=== PATIENT | male | born 1940 | race Caucasian/White ===

== ENCOUNTER → 2019-12-09 08:28 | Outpatient (CLI) | payer MEDICARE, OTHER, SELFPAY ==
[2019-12-09 12:59] LABS: Vitamin B12 393 pg/mL (211-911)
[2019-12-09 13:11] LABS: AST(SGOT) 16 U/L (15-37); Alanine Aminotransfer ALT/SGPT 17 U/L (16-61); Albumin, Serum 3.7 g/dL (3.2-5.0); Alkaline Phosphatase 99 U/L (45-117); Anion Gap 3 (5-15); BUN 24 mg/dL (7-18); BUN/Creat Ratio 20.7 RATIO (10-20); Chloride 107 mmol/L (98-107); Creatinine, Serum 1.16 mg/dL (0.70-1.30); EST Glomerular Filtration Rate 64 mL/min (>60); Est Glom Filt Rate - Afr Amer 78 mL/min (>60); Globulin 3.6 g/dL (2.2-4.2); Glucose 100 mg/dL (74-106); Potassium 4.4 mmol/L (3.5-5.1); Protein, Total 7.3 g/dL (6.4-8.2); Sodium Level 140 mmol/L (136-145); Thyroid Stim Hormone (TSH) 6.65 uIU/mL (0.358-3.74)
[2019-12-12 12:04] LABS: T4 Free Direct 0.83 ng/dL (0.76-1.46)
[2019-12-14 05:32] LABS: Thyroglobulin Antibody 7.7 IU/mL (0.0-0.9); Thyroid Peroxidase AB 441 IU/mL (0-34)
== END ==
PROVIDERS: PCP Family Medicine; Visit Provider Family Medicine
DX: R41.3 Other amnesia (principal); R79.89 Other specified abnormal findings of blood chemistry
CPT/HCPCS: 36415; 80053; 82607; 84439; 84443; 86376; 86800

== ENCOUNTER 2020-09-03 08:09 | Outpatient (RCR) | payer MEDICARE, OTHER, SELFPAY | END 2020-09-03 23:59 | LOC: IMMUN 08:09 | PROVIDERS: PCP Family Medicine; Visit Provider Family Medicine | DX: Z23 Encounter for immunization (principal) | CPT/HCPCS: 0011A; 0012A ==

== ENCOUNTER → 2021-02-07 10:11 | Outpatient (CLI) | payer MEDICARE, OTHER, SELFPAY ==
[2021-02-07 13:02] LABS: T4 Free Direct 0.78 ng/dL (0.76-1.46); Thyroid Stim Hormone (TSH) 5.42 uIU/mL (0.358-3.74)
[2021-02-17 07:57] LABS: Thyroglobulin RIA 6.5 ng/mL (.); Thyroid Peroxidase AB 288 IU/mL (0-34)
== END ==
PROVIDERS: PCP Family Medicine; Visit Provider Family Medicine
DX: E06.3 Autoimmune thyroiditis (principal); I10 Essential (primary) hypertension
CPT/HCPCS: 36415; 84432; 84439; 84443; 86376; 86800

== ENCOUNTER 2021-10-01 08:10 | Outpatient (CLI) | payer MEDICARE, OTHER, SELFPAY ==
[2021-10-01 10:11] LABS: Absolute Lymphocyte Count 1.39 X10^3/uL (0.83-4.51); Absolute Neutrophil Count 3.9 X10^3/uL (2.0-7.7); Basophil# 0.05 X10^3/uL; Basophil% 0.8 % (0-1); Eosinophil# 0.32 X10^3/uL; Hematocrit 44.9 % (40-54); Hemoglobin 14.4 g/dL (13.0-16.5); Lymphocyte # 1.39 X10^3/ul (0.83-4.51); Lymphocyte % 21.9 % (19-41); Mean Corp Hgb Conc 32.1 g/dL (32-36); Mean Corpuscular Hgb 29.7 pg (27.0-32.0); Mean Corpuscular Volume 92.6 fL (80-94); Mean Platelet Vol. 10.7 fl (6.2-12.0); Monocyte% 9.4 % (0-10); NRBC Flagged by Analyzer 0 % (0-5); Neutrophil # 3.93 X10^3/uL (2.7-7.7); Platelet Count 197 K/mm3 (150-450); RBC Distribution Width CV 13.2 % (11.6-14.6); RBC Distribution Width SD 44.7 fl (35.1-43.9); Red Blood Count 4.85 M/mm3 (4.6-6.2); White Blood Count 6.4 K/mm3 (4.4-11.0)
[2021-10-01 10:39] LABS: AST(SGOT) 17 U/L (15-37); Alanine Aminotransfer ALT/SGPT 17 U/L (16-61); Albumin, Serum 3.9 g/dL (3.2-5.0); Alkaline Phosphatase 100 U/L (45-117); Anion Gap 3 (5-15); BUN 23 mg/dL (7-18); BUN/Creat Ratio 20.5 RATIO (10-20); Calcium,Total 9.1 mg/dL (8.5-10.1); Chloride 105 mmol/L (98-107); Cholesterol 232 mg/dL (200); Creatinine, Serum 1.12 mg/dL (0.70-1.30); EST Glomerular Filtration Rate 67 mL/min (>60); Est Glom Filt Rate - Afr Amer 81 mL/min (>60); Globulin 3.9 g/dL (2.2-4.2); Glucose 101 mg/dL (74-106); High Density Lipoprotein 32 mg/dL; Potassium 4.6 mmol/L (3.5-5.1); Protein, Total 7.8 g/dL (6.4-8.2); Sodium Level 138 mmol/L (136-145); Triglycerides 141 mg/dL; Very Low Density Lipoprotein 28 mg/dL (5-40)
[2021-10-15 16:24] LABS: Anti-Thyroglobulin AB 8.3 IU/mL (0.0-0.9); Thyroglobulin RIA 6.2 ng/mL (.); Thyroid Peroxidase AB 337 IU/mL (0-34)
== END 2021-10-01 23:59 | disposition home or self-care (01) ==
LOC: MFPLAB 08:13
PROVIDERS: PCP Family Medicine; Referring Provider Family Medicine; Visit Provider Family Medicine
DX: E78.00 Pure hypercholesterolemia, unspecified (principal); E06.3 Autoimmune thyroiditis
CPT/HCPCS: 36415; 80053; 80061; 84432; 85025; 86376; 86800

== ENCOUNTER 2021-10-08 08:18 | Outpatient (CLI) | payer MEDICARE, OTHER, SELFPAY ==
--- NOTE | 2021-10-08 08:23 | RAD_ITS ---
STUDY: X-RAY - LEFT WRIST REASON FOR EXAM: Male, 80 years old. Wrist pain. TECHNIQUE: 3 view(s) of the wrist were obtained. COMPARISON: None. FINDINGS: Osteopenia. Mild arthrosis of the radiocarpal articulation. Mild arthrosis of the radial ulnar articulation. Moderate arthrosis of the radiocarpal row with marked cystic change in the distal scaphoid. Mild arthrosis of the CMC joints, most marked in the first CMC joint. Multiple small ossific fragments projected on the palmar surface of the wrist below the first CMC joint, most likely representing small intra-articular osteochondral bodies. RAD/Wrist min 3 Views IMPRESSION: Osteopenia with osteoarthritic changes as described. Probable osteochondral bodies within the first CMC joint. No acute abnormality, chondrocalcinosis, erosive changes or periostitis. Electronically Signed: Shaq Buenrostro MD at 10:42 EDT ,
--- NOTE | 2021-10-08 08:23 | RAD_ITS ---
STUDY: X-RAY - RIGHT WRIST REASON FOR EXAM: Male, 80 years old. Wrist pain. TECHNIQUE: 3 view(s) of the wrist were obtained. COMPARISON: None. FINDINGS: Osteopenia. Mild arthrosis of the radiocarpal articulation. Mild arthrosis of the radioulnar articulation. Moderate arthrosis of the radiocarpal row with minimal cystic changes in the scaphoid and lunate. Mild arthrosis of the first CMC joint. The soft tissue structures are unremarkable. RAD/Wrist min 3 Views IMPRESSION: Osteopenia with osteoarthritic changes as described. Cystic change in the scaphoid and lunate. No acute abnormality, chondrocalcinosis, erosive changes or periostitis. Electronically Signed: Shaq Buenrostro MD at 10:44 EDT ,
== END 2021-10-08 23:59 | disposition home or self-care (01) ==
LOC: MTRAD 08:21
PROVIDERS: PCP Family Medicine; Referring Provider Family Medicine; Visit Provider Family Medicine
DX: M25.539 Pain in unspecified wrist (principal)
CPT/HCPCS: 73110

== ENCOUNTER → 2021-12-25 | Outpatient (CLI) | payer MEDICARE, OTHER, SELFPAY ==
[2021-12-25 10:10] LABS: Absolute Lymphocyte Count 1.31 X10^3/uL (0.83-4.51); Absolute Neutrophil Count 3.6 X10^3/uL (2.0-7.7); Basophil# 0.03 X10^3/uL; Basophil% 0.5 % (0-1); Eosinophil# 0.29 X10^3/uL; Eosinophils% 4.9 % (0-5); Hematocrit 40.2 % (40-54); Hemoglobin 13.2 g/dL (13.0-16.5); Lymphocyte # 1.31 X10^3/ul (0.83-4.51); Lymphocyte % 22.3 % (19-41); Mean Corp Hgb Conc 32.8 g/dL (32-36); Mean Corpuscular Hgb 30.1 pg (27.0-32.0); Mean Corpuscular Volume 91.8 fL (80-94); Mean Platelet Vol. 10.8 fl (6.2-12.0); Monocyte# 0.59 X10^3/uL; Monocyte% 10.1 % (0-10); NRBC Flagged by Analyzer 0 % (0-5); Neutrophil # 3.62 X10^3/uL (2.7-7.7); Neutrophil % 61.7 % (47-70); Platelet Count 176 K/mm3 (150-450); RBC Distribution Width CV 12.7 % (11.6-14.6); Red Blood Count 4.38 M/mm3 (4.6-6.2); White Blood Count 5.9 K/mm3 (4.4-11.0)
[2021-12-25 10:59] LABS: ALB/GLOB Ratio 1.2 RATIO (0.9-2.4); AST(SGOT) 16 U/L (15-37); Alanine Aminotransfer ALT/SGPT 16 U/L (16-61); Albumin, Serum 3.8 g/dL (3.2-5.0); Alkaline Phosphatase 90 U/L (45-117); Anion Gap 5 (5-15); BUN 35 mg/dL (7-18); BUN/Creat Ratio 32.1 RATIO (10-20); Calcium,Total 8.8 mg/dL (8.5-10.1); Chloride 108 mmol/L (98-107); Cholesterol 100 mg/dL (200); Creatinine, Serum 1.09 mg/dL (0.70-1.30); EST Glomerular Filtration Rate 69 mL/min (>60); Est Glom Filt Rate - Afr Amer 83 mL/min (>60); Globulin 3.2 g/dL (2.2-4.2); Glucose 93 mg/dL (74-106); High Density Lipoprotein 37 mg/dL; Potassium 4.2 mmol/L (3.5-5.1); Sodium Level 139 mmol/L (136-145); T4 Free Direct 0.85 ng/dL (0.76-1.46); Thyroid Stim Hormone (TSH) 3.98 uIU/mL (0.358-3.74); Triglycerides 58 mg/dL; Very Low Density Lipoprotein 12 mg/dL (5-40)
== END | disposition home or self-care (01) ==
LOC: MFPLAB 08:40
PROVIDERS: PCP Family Medicine; Referring Provider Family Medicine; Visit Provider Family Medicine
DX: E06.3 Autoimmune thyroiditis (principal); E78.00 Pure hypercholesterolemia, unspecified
CPT/HCPCS: 36415; 80053; 80061; 84439; 84443; 85025

== ENCOUNTER → 2022-01-24 | Outpatient (CLI) | payer MEDICARE, OTHER, SELFPAY ==
--- NOTE | 2022-01-24 08:50 | ECHOD_ITS ---
Version 2 Reason For Study: SOB Procedure This was a 2D Doppler, Color Flow transthoracic echocardiogram. Exam performed in department. Left Ventricle Normal LV size. Left ventricular systolic function is normal. The estimated ejection fraction is 55 %. Stage 1 diastolic dysfunction. No regional wall motion abnormalities noted. Right Ventricle Normal RV size. Normal systolic function. Atria Normal left atrium. Normal right atrium. Tricuspid Valve Normal tricuspid valve. Mild (1+) tricuspid valve insufficiency. Pulmonary artery systolic pressure is 32 mmHg. Aortic Valve Trisinus/trileaflet aortic valve. Mild focal aortic valve thickening. Mild (1+) eccentric aortic valve insufficiency. Pulmonic Valve Normal pulmonic valve. Mild (1+) pulmonic valve insufficiency. Great Vessels Normal aortic root. The pulmonary artery is normal size. Normal inferior vena cava. Pericardium/Pleural No pericardial effusion. MMode/2D Measurements & Calculations LVIDd: 5.2 cm IVSd: 0.85 cm Ao root diam: 3.5 cm LVIDs: 2.9 cm LVPWd: 0.95 cm LA dimension: 3.4 cm RVDd: 4.2 cm FS: 44.0 % LAV(MOD-bp): 56.3 ml LA A4 area: 18.7 cm2 RA A4 area: 21.8 cm2 LAV(MOD-bp) Indexed: 31.1 ml/m2 LAV(MOD-sp2): 66.3 ml LAV(MOD-sp4): 48.7 ml Time Measurements MV dec time: 0.19 sec Doppler Measurements & Calculations MV E max bobby: 61.7 cm/sec MV V2 max: 60.6 cm/sec MV P1/2t max bobby: 46.9 cm/sec MV A max bobby: 79.1 cm/sec MV max P.5 mmHg MV P1/2t: 51.3 msec MV E/A: 0.78 MV V2 mean: 27.3 cm/sec MV mean P.37 mmHg MV dec slope: 267.3 cm/sec2 MV V2 VTI: 28.8 cm MVA(P1/2t): 4.3 cm2 Ao V2 max: 130.5 cm/sec AI max bobby: 418.0 cm/sec LV V1 max: 86.2 cm/sec Ao max P.8 mmHg AI max P.9 mmHg LV V1 max P.0 mmHg Ao V2 mean: 83.1 cm/sec Ao mean P.3 mmHg AI dec slope: 148.9 cm/sec2 Ao V2 VTI: 33.2 cm AI P1/2t: 822.1 msec MR max bobby: 555.5 cm/sec PA V2 max: 82.1 cm/sec MR max P.4 mmHg PI dec slope: 84.8 cm/sec2 TR max bobby: 207.0 cm/sec TR max P.1 mmHg ECHO/Echo Complete Interpretation Summary Normal LV size. Left ventricular systolic function is normal. The estimated ejection fraction is 55 %. Stage 1 diastolic dysfunction. Mild (1+) eccentric aortic valve insufficiency. Pulmonary artery systolic pressure is 32 mmHg. Ordering Physician: Kain Lopez Referring Physician: Kain Lopez Performed By: Jairo Reed RCS
== END | disposition home or self-care (01) ==
LOC: CVS 08:49
PROVIDERS: PCP Family Medicine; Referring Provider Family Medicine; Visit Provider Family Medicine
DX: R06.02 Shortness of breath (principal)
CPT/HCPCS: 93306

== ENCOUNTER → 2022-04-03 | Outpatient (CLI) | payer MEDICARE, OTHER, SELFPAY | END | disposition home or self-care (01) | PROVIDERS: PCP Family Medicine; Visit Provider Family Medicine | DX: Z20.822 Contact with and (suspected) exposure to COVID-19 (principal) | CPT/HCPCS: 87635; U0003; U0005 ==

== ENCOUNTER → 2022-06-24 | Outpatient (CLI) | payer MEDICARE, OTHER, SELFPAY ==
[2022-06-24 10:13] LABS: Absolute Neutrophil Count 4.3 X10^3/uL (2.0-7.7); Basophil# 0.06 X10^3/uL; Basophil% 0.9 % (0-1); Eosinophil# 0.48 X10^3/uL; Eosinophils% 6.9 % (0-5); Hematocrit 41.6 % (40-54); Hemoglobin 13.8 g/dL (13.0-16.5); Lymphocyte % 20.2 % (19-41); Mean Corp Hgb Conc 33.2 g/dL (32-36); Mean Corpuscular Hgb 31.1 pg (27.0-32.0); Mean Corpuscular Volume 93.7 fL (80-94); Mean Platelet Vol. 10.7 fl (6.2-12.0); Monocyte# 0.66 X10^3/uL; Monocyte% 9.5 % (0-10); NRBC Flagged by Analyzer 0 % (0-5); Neutrophil # 4.27 X10^3/uL (2.7-7.7); Neutrophil % 61.6 % (47-70); Platelet Count 178 K/mm3 (150-450); RBC Distribution Width CV 12.7 % (11.6-14.6); RBC Distribution Width SD 43.9 fl (35.1-43.9); Red Blood Count 4.44 M/mm3 (4.6-6.2); White Blood Count 6.9 K/mm3 (4.4-11.0)
[2022-06-24 11:07] LABS: ALB/GLOB Ratio 1.1 RATIO (0.9-2.4); AST(SGOT) 19 U/L (15-37); Alanine Aminotransfer ALT/SGPT 22 U/L (16-61); Albumin, Serum 3.6 g/dL (3.2-5.0); Alkaline Phosphatase 89 U/L (45-117); Anion Gap 6 (5-15); BUN 25 mg/dL (7-18); Chloride 103 mmol/L (98-107); Cholesterol 116 mg/dL (200); Creatinine, Serum 1.04 mg/dL (0.70-1.30); EST Glomerular Filtration Rate 72 mL/min (>60); Est Glom Filt Rate - Afr Amer 88 mL/min (>60); Globulin 3.3 g/dL (2.2-4.2); Glucose 80 mg/dL (74-106); High Density Lipoprotein 34 mg/dL; Potassium 4.5 mmol/L (3.5-5.1); Protein, Total 6.9 g/dL (6.4-8.2); Sodium Level 139 mmol/L (136-145); T4 Free Direct 0.86 ng/dL (0.76-1.46); Thyroid Stim Hormone (TSH) 8.36 uIU/mL (0.358-3.74); Triglycerides 101 mg/dL; Very Low Density Lipoprotein 20 mg/dL (5-40)
== END | disposition home or self-care (01) ==
LOC: MFPLAB 08:55
PROVIDERS: PCP Family Medicine; Referring Provider Family Medicine; Visit Provider Family Medicine
DX: E06.3 Autoimmune thyroiditis (principal); E78.00 Pure hypercholesterolemia, unspecified
CPT/HCPCS: 36415; 80053; 80061; 84439; 84443; 85025

== ENCOUNTER → 2023-01-20 | Outpatient (CLI) | payer MEDICARE, OTHER, SELFPAY ==
[2023-01-20 18:14] LABS: Absolute Lymphocyte Count 1.45 X10^3/uL (0.83-4.51); Absolute Neutrophil Count 4.7 X10^3/uL (2.0-7.7); Basophil# 0.05 X10^3/uL; Basophil% 0.7 % (0-1); Eosinophil# 0.48 X10^3/uL; Eosinophils% 6.6 % (0-5); Hematocrit 40.4 % (40-54); Hemoglobin 13.2 g/dL (13.0-16.5); Lymphocyte # 1.45 X10^3/ul (0.83-4.51); Lymphocyte % 19.9 % (19-41); Mean Corp Hgb Conc 32.7 g/dL (32-36); Mean Corpuscular Hgb 30.6 pg (27.0-32.0); Mean Corpuscular Volume 93.7 fL (80-94); Mean Platelet Vol. 10.9 fl (6.2-12.0); Monocyte% 8.2 % (0-10); NRBC Flagged by Analyzer 0 % (0-5); Neutrophil # 4.68 X10^3/uL (2.7-7.7); Neutrophil % 64.3 % (47-70); Platelet Count 170 K/mm3 (150-450); RBC Distribution Width CV 12.7 % (11.6-14.6); RBC Distribution Width SD 43.8 fl (35.1-43.9); Red Blood Count 4.31 M/mm3 (4.6-6.2); White Blood Count 7.3 K/mm3 (4.4-11.0)
[2023-01-20 19:15] LABS: ALB/GLOB Ratio 1.1 RATIO (0.9-2.4); AST(SGOT) 22 U/L (15-37); Alanine Aminotransfer ALT/SGPT 17 U/L (16-61); Albumin, Serum 3.6 g/dL (3.2-5.0); Alkaline Phosphatase 85 U/L (45-117); Anion Gap 3 (5-15); BUN 29 mg/dL (7-18); BUN/Creat Ratio 20.3 RATIO (10-20); Chloride 110 mmol/L (98-107); Cholesterol 111 mg/dL (200); Creatinine, Serum 1.43 mg/dL (0.70-1.30); EST Glomerular Filtration Rate 50 mL/min (>60); Est Glom Filt Rate - Afr Amer 61 mL/min (>60); Globulin 3.4 g/dL (2.2-4.2); Glucose 94 mg/dL (74-106); High Density Lipoprotein 33 mg/dL; Potassium 4.2 mmol/L (3.5-5.1); Sodium Level 141 mmol/L (136-145); T4 Free Direct 0.69 ng/dL (0.76-1.46); Thyroid Stim Hormone (TSH) 4.41 uIU/mL (0.358-3.74); Triglycerides 133 mg/dL; Very Low Density Lipoprotein 27 mg/dL (5-40)
== END | disposition home or self-care (01) ==
LOC: MFPLAB 16:57
PROVIDERS: PCP Family Medicine; Visit Provider Family Medicine
DX: E78.00 Pure hypercholesterolemia, unspecified (principal); E06.3 Autoimmune thyroiditis
CPT/HCPCS: 36415; 80053; 80061; 84439; 84443; 85025

== ENCOUNTER → 2023-04-03 | Outpatient (CLI) | payer MEDICARE, OTHER, SELFPAY ==
[2023-04-03 12:59] LABS: T4 Free Direct 0.99 ng/dL (0.76-1.46); Thyroid Stim Hormone (TSH) 1.65 uIU/mL (0.358-3.74)
== END | disposition home or self-care (01) ==
LOC: MTLAB 11:05
PROVIDERS: PCP Family Medicine; Referring Provider Family Medicine; Visit Provider Family Medicine
DX: E03.8 Other specified hypothyroidism (principal)
CPT/HCPCS: 36415; 84439; 84443

== ENCOUNTER → 2023-06-24 | Outpatient (CLI) | payer MEDICARE, OTHER, SELFPAY ==
[2023-06-24 17:59] LABS: Cholesterol 130 mg/dL (200); High Density Lipoprotein 40 mg/dL; Thyroid Stim Hormone (TSH) 2.13 uIU/mL (0.358-3.74); Triglycerides 159 mg/dL; Very Low Density Lipoprotein 32 mg/dL (5-40)
== END | disposition home or self-care (01) ==
LOC: MFPLAB 14:58
PROVIDERS: PCP Family Medicine; Visit Provider Nurse Practitioner Family
DX: E03.8 Other specified hypothyroidism (principal); E78.00 Pure hypercholesterolemia, unspecified
CPT/HCPCS: 36415; 80061; 84439; 84443

== ENCOUNTER → 2024-04-07 | Outpatient (CLI) | payer OTHER, SELFPAY ==
[2024-04-07 12:18] LABS: Absolute Lymphocyte Count 1.35 X10^3/uL (0.83-4.51); Absolute Neutrophil Count 3.6 X10^3/uL (2.0-7.7); Basophil# 0.04 X10^3/uL; Basophil% 0.7 % (0-1); Eosinophil# 0.33 X10^3/uL; Eosinophils% 5.6 % (0-5); Hematocrit 41.9 % (40-54); Hemoglobin 13.3 g/dL (13.0-16.5); Lymphocyte # 1.35 X10^3/ul (0.83-4.51); Lymphocyte % 22.8 % (19-41); Mean Corp Hgb Conc 31.7 g/dL (32-36); Mean Corpuscular Hgb 29.8 pg (27.0-32.0); Mean Corpuscular Volume 93.7 fL (80-94); Mean Platelet Vol. 11.3 fl (6.2-12.0); Monocyte# 0.56 X10^3/uL; Monocyte% 9.5 % (0-10); NRBC Flagged by Analyzer 0 % (0-5); Neutrophil # 3.59 X10^3/uL (2.7-7.7); Neutrophil % 60.7 % (47-70); Platelet Count 167 K/mm3 (150-450); RBC Distribution Width CV 12.9 % (11.6-14.6); RBC Distribution Width SD 44.2 fl (35.1-43.9); Red Blood Count 4.47 M/mm3 (4.6-6.2); White Blood Count 5.9 K/mm3 (4.4-11.0)
[2024-04-07 13:15] LABS: ALB/GLOB Ratio 1.1 RATIO (0.9-2.4); AST(SGOT) 18 U/L (15-37); Alanine Aminotransfer ALT/SGPT 13 U/L (16-61); Albumin, Serum 3.7 g/dL (3.2-5.0); Alkaline Phosphatase 88 U/L (45-117); Anion Gap 4 (5-15); BUN 25 mg/dL (7-18); BUN/Creat Ratio 22.5 RATIO (10-20); Calcium,Total 9.2 mg/dL (8.5-10.1); Chloride 104 mmol/L (98-107); Cholesterol 122 mg/dL (200); Creatinine, Serum 1.11 mg/dL (0.70-1.30); EST Glomerular Filtration Rate 67 mL/min (>60); Est Glom Filt Rate - Afr Amer 81 mL/min (>60); Globulin 3.3 g/dL (2.2-4.2); Glucose 103 mg/dL (74-106); High Density Lipoprotein 40 mg/dL; Potassium 4.2 mmol/L (3.5-5.1); Sodium Level 136 mmol/L (136-145); T4 Free Direct 0.97 ng/dL (0.76-1.46); Triglycerides 83 mg/dL; Very Low Density Lipoprotein 17 mg/dL (5-40)
== END | disposition home or self-care (01) ==
LOC: MFPLAB 09:46
PROVIDERS: PCP Family Medicine; Referring Provider Family Medicine; Visit Provider Family Medicine
DX: E78.00 Pure hypercholesterolemia, unspecified (principal); E03.8 Other specified hypothyroidism
CPT/HCPCS: 36415; 80053; 80061; 84439; 84443; 85025

== ENCOUNTER → 2024-10-11 | Outpatient (CLI) | payer MEDICARE, OTHER, SELFPAY ==
[2024-10-11 13:27] LABS: ALB/GLOB Ratio 1.5 RATIO (0.9-2.4); AST(SGOT) 24 U/L (<=37); Alanine Aminotransfer ALT/SGPT 11 U/L (<=46); Albumin, Serum 4.3 g/dL (3.4-4.8); Alkaline Phosphatase 91 U/L (40-129); Anion Gap 11 (5-15); BUN 22 mg/dL (4-19); BUN/Creat Ratio 21.8 RATIO (10-20); Calcium,Total 9.3 mg/dL (7.6-11.0); Carbon Dioxide 25.3 mmol/L (21.0-32.0); Chloride 103 mmol/L (98-108); Cholesterol 118 mg/dL (<=200); Creatinine, Serum 1.01 mg/dL (0.70-1.20); EST Glomerular Filtration Rate 73 (>60); Globulin 2.9 g/dL (2.2-4.2); Glucose 97 mg/dL (70-99); High Density Lipoprotein 35 mg/dL; Low Density Lipoprotein Calc. 60 mg/dL; Potassium 4.4 mmol/L (3.3-5.1); Protein, Total 7.1 g/dL (5.9-8.4); Sodium Level 139 mmol/L (133-145); Triglycerides 114 mg/dL; Very Low Density Lipoprotein 23 mg/dL (5-40); cholesterol:hdl ratio screen 3.33
== END | disposition home or self-care (01) ==
LOC: MFPLAB 09:49
PROVIDERS: PCP Family Medicine; Referring Provider Family Medicine; Visit Provider Family Medicine
DX: E03.8 Other specified hypothyroidism (principal); E78.00 Pure hypercholesterolemia, unspecified
CPT/HCPCS: 36415; 80053; 80061; 84439; 84443

== ENCOUNTER → 2025-01-13 | Outpatient (CLI) | payer MEDICARE, OTHER, SELFPAY ==
--- OUTSIDE RECORDS SUMMARY | 2025-01-13 07:37 | XMS RPT_ITS | CCD ---
Author Organization [facility] Care Team Providers Care Customs Entry Clerk Name Role Phone Dr. Dmitriy Hardy Primary Care Provider Dr. Jose E Gary Attending Provider [phone] DMITRIY HARDY MD Primary Care Physician [phone] Dr. Dmitriy Hardy MD Primary Care Provider Dr. Dmitriy Hardy MD Referring Provider [phone] Nathaniel DEL VALLE-Dmitriy Gerardo Attending Provider [phone] Dmitriy Hardy MD Attending Provider [phone] Dmitriy Hardy Primary Care Unavailable Dmitriy Hardy Attending Unavailable Dmitriy Hardy Referring Unavailable Dmitriy Hardy Attending Unavailable Dmitriy Hardy Referring Unavailable Dmitriy Hardy Primary Care Unavailable Dmitriy Hardy Primary Care Unavailable Zina Petit Attending Unavailable Zina Petit Referring Unavailable Dmitriy Hardy Referring Unavailable Dmitriy Armstrong NP Attending Unavailable Dmitriy Hardy Primary Care Unavailable ZINA PETIT MD Attending Unavailable DMITRIY HARDY MD Primary Care Unavailable Medications Current Medications Medication Drug Class(es) Dates Sig (Normalized) Sig (Original) azithromycin 250 mg oral tablet (1 source) Macrolide Antimicrobial Start: 07-03-2024 Azithromycin (Zithromax Z-Rai) 250 mg tablet Active 0 PO .COMPLEX July 03, 2024 1:00am For 250 mg dose pack: take 500 mg today (day 1), then 250 mg for 4 days (days 2-5) PO Problems Active Problems Problem Classification Problem Date Documented Da te Episodic/Chronic Disorders of lipid metabolism (1 source) Pure hypercholesterole moreno, unspecified; Translations: [Pure hypercholesterole moreno, unspecified] Onset: 06-13-2024 Chronic Thyroid disorders (1 source) Other specified hypothyroidism; Translations: [Other specified hypothyroidism] Onset: 10-17-2024 Chronic Past or Other Problems Problem Classification Problem Date Documented Da te Episodic/Chronic Other upper respiratory infections (3 sources) Upper respiratory infection; Translations: [Acute upper respiratory infection, unspecified] Onset: 07-03-2024 07-03-2024 Episodic Results Test Name Value Interpretation Reference Range Facility CT KNEE W/O CONTRAST RIGHTon 12-30-2024 CT KNEE W/O CONTRAST RIGHT ORIGINAL EXAMINATION: CT OF THE RIGHT KNEE WITHOUT CONTRAST 12/29/2024 3:45 pm TECHNIQUE: CT of the right knee was performed without the administration of intravenous contrast. Multiplanar reformatted images are provided for review. Automated exposure control, iterative reconstruction, and/or weight based adjustment of the mA/kV was utilized to reduce the radiation dose to as low as reasonably achievable. COMPARISON: None. HISTORY ORDERING SYSTEM PROVIDED HISTORY: Reason for Exam: Unilateral primary osteoarthritis, right knee FINDINGS: Chondrocalcinosis, worse in medial compartment. Moderate medial compartment joint space narrowing with subchondral sclerosis in tibial plateau Small tricompartmental marginal osteophytes. No fracture or malalignment. Trace joint effusion. IMPRESSION: Images were acquired for preoperative planning. Medial compartment osteoarthritis. chondrocalcinosis. Interpreted by: Alfred Santoyo Preliminary Report By: Alfred Santoyo Electronically signed By Alfred Santoyo Dictated Date: 12/30/2024 7:53:46 AM Prelim Date: 12/30/2024 7:55:56 AM Sign Date: 12/30/2024 7:55:56 AM Ordering Provider: ZINA PETIT Interpreted by: Alfred Santoyo Preliminary Report By: Alfred Santoyo Electronically signed By Alfred Santoyo Dictated Date: 12/30/2024 7:53:46 AM Prelim Date: 12/30/2024 7:55:56 AM Sign Date: 12/30/2024 7:55:56 AM Ordering Provider: ZINA PETIT [facility] XR CHEST 2 VIEWSon XR CHEST 2 VIEWS ORIGINAL EXAMINATION: TWO XRAY VIEWS OF THE CHEST 12/29/2024 3:45 pm COMPARISON: None. HISTORY: ORDERING SYSTEM PROVIDED HISTORY: Reason for Exam: PRE OP FINDINGS: The heart size and mediastinal contours are normal. The lungs are hyperexpanded. There is no acute lung infiltrate or edema. No pneumothorax or pleural fluid is present. There is mild thoracic spondylosis without fracture or subluxation. IMPRESSION: 1. Chronic obstructive pulmonary disease. 2. No acute abnormality. Interpreted by: Pop Avina MD Preliminary Report By: Pop Avina MD Electronically signed By Pop Avina MD Dictated Date: 12/30/2024 3:37:25 AM Prelim Date: 12/30/2024 3:38:14 AM Sign Date: 12/30/2024 3:38:14 AM Ordering Provider: ZINA PETIT Interpreted by: Pop Avina MD Preliminary Report By: Pop Avina MD Electronically signed By Pop Avina MD Dictated Date: 12/30/2024 3:37:25 AM Prelim Date: 12/30/2024 3:38:14 AM Sign Date: 12/30/2024 3:38:14 AM Ordering Provider: ZINA PETIT [facility] Anion gap in Serum or Plasma Ordered By: Dmitriy Hardy on 10-11-2024 Anion gap [Moles/Vol] 11 mmol/L 5-15 [facility] BUN/creatinine ratioOrdered By: Dmitriy Hardy on 10-11-2024 Urea nitrogen/Creatinine [Mass ratio] 21.8 mg/mg High 10-20 [facility] Bilirubin, totalOrdered By: Dmitriy Hardy on 10-11-2024 Bilirubin [Mass/Vol] 0.60 mg/dL 0.00-1.30 [facility] Calculated very low density lipoprotein (VLDL) cholesterol measurementOrdered By: Dmitriy Hardy on 10-11-2024 VLDL Cholesterol 23 mg/dL 5-40 [facility] Carbon dioxide, total [Moles /volume] in Central venous bloodOrdered By: Dmitriy Hardy on 10-11-2024 CO2 [Moles/Vol] 25.3 mmol/L 21.0-32.0 [facility] Chloride assayOrdered By: Manisha Hardy on 10-11-2024 Chloride [Moles/Vol] 103 mmol/L 98-108 [facility] Comprehensive Metabolic Prof ilon 10-11-2024 Albumin [Mass/Vol] 4.3 g/dL Normal 3.4-4.8 [facility] Comment on above: Order Comment: Order Date: 10/11/24 Order Info: [id number] - CMP Order Info: - LIPID Order Info: 3 - TSH Order Info: [id number] - T4F Performed By: #### L 506.0400, L501.9520, L500.4050, L500.4100 #### [facility] [address] [place], [address] Albumin/Globulin [Mass ratio] 1.5 {ratio} Normal 0.9-2.4 [facility] Comment on above: Order Comment: Order Date: 10/11/24 Order Info: [id number] - CMP Order Info: - LIPID Order Info: 3 - TSH Order Info: 7 - T4F Performed By: #### L 506.0400, L501.9520, L500.4050, L500.4100 #### [facility] [address] [place], [address] ALK PHOS 91 U/L Normal 40-129 [facility] Comment on above: Order Comment: Order Date: 10/11/24 Order Info: [id number] - CMP Order Info: - LIPID Order Info: 3 - TSH Order Info: [id number] - T4F Performed By: #### L 506.0400, L501.9520, L500.4050, L500.4100 #### [facility] [address] [place], [address] ALT [Catalytic activity/Vol] 11 U/L Normal <=46 [facility] Comment on above: Order Comment: Order Date: 10/11/24 Order Info: [id number] - CMP Order Info: [id number] - LIPID Order Info: 63 - TSH Order Info: 3024-7 - T4F Performed By: #### L 506.0400, L501.9520, L500.4050, L500.4100 #### [facility] [address] [place], [address] AST [Catalytic activity/Vol] 24 U/L Normal <=37 [facility] Comment on above: Order Comment: Order Date: 10/11/24 Order Info: 86-1 - CMP Order Info: [id number] - LIPID Order Info: [id number] - TSH Order Info: 3024-7 - T4F Performed By: #### L 506.0400, L501.9520, L500.4050, L500.4100 #### [facility] [address] [place], [address] Bilirubin [Mass/Vol] 0.60 mg/dL Normal 0.00-1.30 [facility] Comment on above: Order Comment: Order Date: 10/11/24 Order Info: 785-1 - CMP Order Info: [id number] - LIPID Order Info: 3 - TSH Order Info: [id number] - T4F Performed By: #### L 506.0400, L501.9520, L500.4050, L500.4100 #### [facility] [address] [place], [address] BUN/CRE 21.8 RATIO High 10-20 [facility] Comment on above: Order Comment: Order Date: 10/11/24 Order Info: 785-1 - CMP Order Info: [id number] - LIPID Order Info: 3 - TSH Order Info: 3024-7 - T4F Performed By: #### L 506.0400, L501.9520, L500.4050, L500.4100 #### [facility] [address] [place], [address] Calcium [Mass/Vol] 9.3 mg/dL Normal 7.6-11.0 [facility] Comment on above: Order Comment: Order Date: 10/11/24 Order Info: 86-1 - CMP Order Info: [id number] - LIPID Order Info: 3 - TSH Order Info: 3024-7 - T4F Performed By: #### L 506.0400, L501.9520, L500.4050, L500.4100 #### [facility] [address] [place], [address] Chloride [Moles/Vol] 103 mmol/L Normal 98-108 [facility] Comment on above: Order Comment: Order Date: 10/11/24 Order Info: [id number] - CMP Order Info: [id number] - LIPID Order Info: [id number] - TSH Order Info: 3024-7 - T4F Performed By: #### L 506.0400, L501.9520, L500.4050, L500.4100 #### [facility] [address] [place], [address] CO2 [Moles/Vol] 25.3 mmol/L Normal 21.0-32.0 [facility] Comment on above: Order Comment: Order Date: 10/11/24 Order Info: 785-1 - CMP Order Info: [id number] - LIPID Order Info: [id number] - TSH Order Info: 3024-7 - T4F Performed By: #### L 506.0400, L501.9520, L500.4050, L500.4100 #### [facility] [address] [place], [address] Creatinine [Mass/Vol] 1.01 mg/dL Normal 0.70-1.20 [facility] Comment on above: Order Comment: Order Date: 10/11/24 Order Info: [id number] - CMP Order Info: [id number] - LIPID Order Info: [id number] - TSH Order Info: 3024-7 - T4F Performed By: #### L 506.0400, L501.9520, L500.4050, L500.4100 #### [facility] [address] [place], [address] GAP 11 Normal 5-15 [facility] Comment on above: Order Comment: Order Date: 10/11/24 Order Info: [id number] - CMP Order Info: [id number] - LIPID Order Info: 3 - TSH Order Info: 7 - T4F Performed By: #### L 506.0400, L501.9520, L500.4050, L500.4100 #### [facility] [address] [place], [address] GFR/1.73 sq M.predicted among non-blacks MDRD (S/P/Bld) [Vol rate/Area] 73 mL/min/{1.73_m2} Normal >60 [facility] Comment on above: Order Comment: Order Date: 10/11/24 Order Info: 785- - CMP Order Info: - LIPID Order Info: [id number] - TSH Order Info: 7 - T4F Result Comment: mL/m in/1.73m2 CKD-EPI Creatinine Equation (2020) Performed By: #### L 506.0400, L501.9520, L500.4050, L500.4100 #### [facility] [address] [place], [address] Globulin (S) [Mass/Vol] 2.9 g/dL Normal 2.2-4.2 [facility] Comment on above: Order Comment: Order Date: 10/11/24 Order Info: [id number] - CMP Order Info: [id number] - LIPID Order Info: 3 - TSH Order Info: 7 - T4F Performed By: #### L 506.0400, L501.9520, L500.4050, L500.4100 #### [facility] [address] [place], [address] Glucose [Mass/Vol] 97 mg/dL Normal 70-99 [facility] Comment on above: Order Comment: Order Date: 10/11/24 Order Info: 071 - CMP Order Info: [id number] - LIPID Order Info: 3 - TSH Order Info: 7 - T4F Performed By: #### L 506.0400, L501.9520, L500.4050, L500.4100 #### [facility] [address] [place], [address] Potassium [Moles/Vol] 4.4 mmol/L Normal 3.3-5.1 [facility] Comment on above: Order Comment: Order Date: 10/11/24 Order Info: [id number] - CMP Order Info: [id number] - LIPID Order Info: [id number] - TSH Order Info: 3024-7 - T4F Performed By: #### L 506.0400, L501.9520, L500.4050, L500.4100 #### [facility] [address] [place], [address] Sodium [Moles/Vol] 139 mmol/L Normal 133-145 [facility] Comment on above: Order Comment: Order Date: 10/11/24 Order Info: 785- - CMP Order Info: [id number] - LIPID Order Info: 3 - TSH Order Info: 3024-7 - T4F Performed By: #### L 506.0400, L501.9520, L500.4050, L500.4100 #### [facility] [address] [place], [address] T PROT 7.1 g/dL Normal 5.9-8.4 [facility] Comment on above: Order Comment: Order Date: 10/11/24 Order Info: 0786- - CMP Order Info: [id number] - LIPID Order Info: [id number] - TSH Order Info: 3024-7 - T4F Performed By: #### L 506.0400, L501.9520, L500.4050, L500.4100 #### [facility] [address] [place], [address] Urea nitrogen [Mass/Vol] 22 mg/dL High 4-19 [facility] Comment on above: Order Comment: Order Date: 10/11/24 Order Info: [id number] - CMP Order Info: [id number] - LIPID Order Info: 3 - TSH Order Info: 3024-01 - T4F Performed By: #### L 506.0400, L501.9520, L500.4050, L500.4100 #### [facility] [address] [place], [place], [address] GFR/1.73 sq M.predicted yimi g non-blacks MDRD (S/P/Bld) [Vol rate/Area]Ordered By: Dmitriy Hardy on 10-11-2024 Estimated GFR (MDRD) Non-Af Amer [address] [facility] Comment on above: mL/min/1.73m2 CKD-EP I Creatinine Equation (2020) LDL calc ser/plasOrdered By: Dmitriy Hardy on 10-11-2024 LDL Cholesterol, Calculated 60 mg/dL [facility] Comment on above: Ibnezciboi=919-377 m g/dL & Higher Ehfc=308 mg/dL or greater Laboratory - Chemistry and C hemistry - challengeOrdered By: Dmitriy Hardy on 10-11-2024 AST [Catalytic activity/Vol] 24 U/L <38 [facility] Lipid Profileon 10-11-2024 CHOL:HDL 3.[address] [facility] Comment on above: Order Comment: Order Date: 10/11/24 Order Info: 0786-1 - CMP Order Info: [id number] - LIPID Order Info: [id number] - TSH Order Info: 3024-01 - T4F Performed By: #### L 506.0400, L501.9520, L500.4050, L500.4100 #### [facility] [address] [place], [place], [address] Cholesterol [Mass/Vol] 118 mg/dL Normal <=200 [facility] Comment on above: Order Comment: Order Date: 10/11/24 Order Info: 0786-1 - CMP Order Info: [id number] - LIPID Order Info: [id number] - TSH Order Info: 3024-01 - T4F Result Comment: Chol esterol level, Desirable <200 mg/dL Borderline high cholesterol 200-239 mg/dL High cholesterol >=240 mg/dL Recommendations of the NCEP Adult Treatment Panel for the following risk-cutoff thresholds for the [place] population. Performed By: #### L 506.0400, L501.9520, L500.4050, L500.4100 #### [facility] [address] [place], [address] Cholesterol in HDL [Mass/Vol] 35 mg/dL Low [facility] Comment on above: Order Comment: Order Date: 10/11/24 Order Info: 785- - CMP Order Info: - LIPID Order Info: [id number] - TSH Order Info: 3024-01 T4 Result Comment: Raquel onal Cholesterol Education Program (NCEP) guidelines: <40 mg/dL: Low HDL-cholesterol (major risk factor for CHD) >= 60 mg/dL: High HDL-cholesterol (negative risk factor for CHD) HDL-cholesterol is affected by a number of factors, e.g. smoking, exercise, hormones, sex and age. Performed By: #### L 506.0400, L501.9520, L500.4050, L500.4100 #### [facility] [address] [place], [address] Cholesterol in LDL [Mass/Vol] 60 mg/dL Normal [facility] Comment on above: Order Comment: Order Date: 10/11/24 Order Info: 785-07 - CMP Order Info: - LIPID Order Info: [id number] - TSH Order Info: 3024-01 T4 Result Comment: Bord umdhct=658-765 mg/dL Higher Iwqu=662 mg/dL or greater Performed By: #### L 506.0400, L501.9520, L500.4050, L500.4100 #### [facility] [address] [place], [address] Cholesterol in VLDL [Mass/Vol] 23 mg/dL Normal 5-40 [facility] Comment on above: Order Comment: Order Date: 10/11/24 Order Info: 785-07 - CMP Order Info: - LIPID Order Info: [id number] - TSH Order Info: 3024-01 - T4F Performed By: #### L 506.0400, L501.9520, L500.4050, L500.4100 #### [facility] [address] [place], [place], [address] Triglyceride [Mass/Vol] 114 mg/dL Normal [facility] Comment on above: Order Comment: Order Date: 10/11/24 Order Info: 0786-1 - CMP Order Info: [id number] - LIPID Order Info: [id number] - TSH Order Info: 3024-01 - T4F Result Comment: The drugs N-Acetylcysteine and Metamizole may falsely depress this assay. Normal range: <150 mg/dL Borderline High: 150-199 mg/dL High: 200-499 mg/dL Very High: >500 mg/dL Performed By: #### L 506.0400, L501.9520, L500.4050, L500.4100 #### [facility] [address] [place], [place], [address] Potassium (Unsp spec) [Mass/ Vol]Ordered By: Dmitriy Hardy on 10-11-2024 Potassium [Moles/Vol] 4.4 mmol/L 3.3-5.1 [facility] Screening total cholesterol/ high density lipoprotein (HDL) cholesterol ratioOrdered By: Dmitriy Hardy on 10-11-2024 Cholesterol.total/Ch olesterol in HDL [Mass ratio] 3.33 {ratio} [facility] Serum creatinine measurement (mass/volume)Ordered By: Dmitriy Hardy on 10-11-2024 Creatinine [Mass/Vol] 1.01 mg/dL 0.70-1.20 [facility] Serum globulin measurementOr dered By: Dmitriy Hardy on 10-11-2024 Globulin (S) [Mass/Vol] 2.9 g/dL 2.2-4.2 [facility] Serum glucose measurement (m ass/volume)Ordered By: Dmitriy Hardy on 10-11-2024 Glucose [Mass/Vol] 97 mg/dL 70-99 [facility] Serum or plasma alanine dyson otransferase (ALT) measurementOrdered By: Dmitriy Hardy on 10-11-2024 ALT [Catalytic activity/Vol] 11 U/L <47 [facility] Serum or plasma albumin dulce urement (mass/volume)Ordered By: Dmitriy Hardy on 10-11-2024 Albumin [Mass/Vol] 4.3 g/dL 3.4-4.8 [facility] Serum or plasma albumin/glob ulin mass ratioOrdered By: Dmitriy Hardy on 10-11-2024 Albumin/Globulin [Mass ratio] 1.5 {ratio} 0.9-2.4 [facility] Serum or plasma alkaline piyush sphatase measurementOrdered By: Dmitriy Hardy on 10-11-2024 ALP [Catalytic activity/Vol] 91 U/L 40-129 [facility] Serum or plasma calcium dulce urement (mass/volume)Ordered By: Dmitriy Hardy on 10-11-2024 Calcium [Mass/Vol] 9.3 mg/dL 7.6-11.0 [facility] Serum or plasma cholesterol in HDL measurement (mass/volume)Ordered By: Dmitriy Hardy on 10-11-2024 Cholesterol in HDL [Mass/Vol] 35 mg/dL Low >40 [facility] Comment on above: National Cholesterol Education Program (NCEP) guidelines:<40 mg/dL: Low HDL-cholesterol (major risk factor for CHD)>= 60 mg/dL: High HDL-cholesterol (negative risk factor for CHD)HDL-cholesterol is affected by a number of factors, e.g. smoking, exercise, hormones, sex and age. Serum or plasma cholesterol measurement (mass/volume)Ordered By: Dmitriy Hardy on 10-11-2024 Cholesterol [Mass/Vol] 118 mg/dL <201 [facility] Comment on above: Cholesterol level, D esirable <200 mg/dLBorderline high cholesterol 200-239 mg/dLHigh cholesterol >=240 mg/dLRecommendations of the NCEP Adult Treatment Panel for the following risk-cutoff thresholds for the [place] population. Serum or plasma urea nitroge n measurement (mass/volume)Ordered By: Dmitriy Hardy on 10-11-2024 Urea nitrogen [Mass/Vol] 22 mg/dL High 4-19 [facility] Sodium levelOrdered By: Dmitriy Hardy on 10-11-2024 Sodium [Moles/Vol] 139 mmol/L 133-145 [facility] T4 Free Directon 10-11-2024 T4 FREE DIRECT 1.30 ng/dL Normal 0.76-1.46 [facility] Comment on above: Order Comment: Order Date: 10/11/24 Order Info: [id number] - CMP Order Info: [id number] - LIPID Order Info: 63 - TSH Order Info: 3024-01 - T4F Performed By: #### L 506.0400, L501.9520, L500.4050, L500.4100 #### [facility] [address] [place], [address] T4 freeOrdered By: Dmitriy galo on 10-11-2024 Free T4 [Mass/Vol] 1.30 ng/dL 0.76-1.46 [facility] TSH DL <= 0.005 mIU/L QnOrde red By: Dmitriy Hardy on 10-11-2024 Thyroid Stimulating Hormone (TSH) 3.070 uIU/mL 0.300-4.200 [facility] Thyroid Stim Hormone (TSH)on 10-11-2024 TSH 3.070 uIU/mL Normal 0.300-4.200 [facility] Comment on above: Order Comment: Order Date: 10/11/24 Order Info: [id number] - CMP Order Info: [id number] - LIPID Order Info: 3 - TSH Order Info: 3024-01 - T4F Performed By: #### L 506.0400, L501.9520, L500.4050, L500.4100 #### [facility] [address] [place], [address] Total proteinOrdered By: Dean Hardy on 10-11-2024 Protein [Mass/Vol] 7.1 g/dL 5.9-8.4 [facility] Triglycerides measurementOrd ered By: Dmitriy Hardy on 10-11-2024 Triglyceride [Mass/Vol] 114 mg/dL <199 [facility] Comment on above: The drugs N-Acetylcy steine and Metamizole may falsely depress this assay. Normal range: <150 mg/dLBorderline High: 150-199 mg/dLHigh: 200-499 mg/dLVery High: >500 mg/dL No Panel Informationon 07-03 POC SARS CoV-[address] [facility] Urgent Care Visit Reporton 1 09-03-2023 Urgent Care Visit Report [facility] [address], [address] [place] [address] OFFICE VISIT Date of Service: 07/03/24 MR#: [id number] Acct: [id number] Name: SP BABCOCK Rep #: [id number] : 1940 Provider: AIDAN yeh Age/Sex: 83/M Location: [facility] Status: Signed Intake Vital Signs 07/03/24 09:58 Height 5 ft 8 in Weight: 156 lb 6 oz BMI 23.8 BP 120/58 L Blood Pressure Location Lt brachial Position Sitting Respiration 16 Pulse 50 L Pulse Source NIBP Temp 98.1 F Temp Source Oral Pulse Oximetry (%) 96 Oxygen Delivery Method room air Intake Visit Reasons: HEAD CONGESTION Chief Complaint: cough, congestion Loader Technician Required: No Is patient in pain?: No Allergies No Known Allergies Allergy (Verified 07/03/24 09:59) Have you fallen in the past year?: No Nurse's Note: productive cough, congestion x 1 week. taking otc decongestant and Nyquil without relief. HPI HPI Chief Complaint: cough, congestion Details: SP BABCOCK, is a 83 M who presents to the office today for concerns regarding productive cough and congestion for the last week. He has been taking dzwa-lfw-ttbyglr medications without relief. COVID testing prior to evaluation was negative. He states his symptoms tend to be in my sinuses. He denies sick contacts. He received flu and pneumonia vaccination. He has not received COVID vaccination. ROS Const Constitutional: No body ache, chills, fatigue, fever(s), headache(s) or change in appetite Eyes Eyes: No blurry vision, change in vision, double vision, irritation, discharge, vision loss, dry eyes, bulging eyes, floaters, visual disturbances, eye pain, Light sensitivity, spots in vision, tunnel vision or other ENT ENT: No ear or mastoid pain, ear discharge, ear pressure, tinnitus, dizziness/vertigo, nosebleed/epistaxis, nasal congestion, nose pain, sinus pressure, sinus pain, nasal discharge, post nasal drip, headache(s), facial pain, dental pain, difficulty swallowing, bad breath, hoarseness, lip swelling, mouth lesions, mouth pain, neck pain, sore throat, tongue swelling or throat swelling Resp Respiratory: Positive for cough and chest congestion; No change in phlegm color, hemoptysis, pain on inspiration, shortness of breath, pain with cough, stridor or wheezing Cardio Cardiology: No chest pain at rest, chest pain with exertion, shortness of breath, dyspnea on exertion or lightheadedness Gastro GI: No abdominal pain, change in bowel habits or difficulty swallowing Genitourinary Male: No burning urination or urinary frequency Musc Musculoskeletal: No joint pain or neck pain Skin Skin: No rash Neuro Neurology: No headache(s) or visual disturbances Psych Psychiatric: No change in appetite Endo Endocrine: No fatigue Aller/Imm Allergy/Immunologic: No lip swelling, throat swelling, tongue swelling or wheezing Exam Const General: cooperative, healthy appearing, comfortable and no acute distress Orientation: alert, awake and oriented x3 HENMT Head: normal to inspection and normocephalic Ears: hearing grossly normal bilaterally, external ears normal and TM's normal bilaterally Nose: external nose normal, nares normal and no nasal discharge Face and sinus: normal facial exam and sinuses nontender Mouth: oral mucosae normal, lip normal, tongue normal, oropharynx normal and moist mucous membranes Throat: posterior oropharynx normal, tonsils normal, uvula midline and no postnasal drainage Eyes General: appearance normal, both eyes and all related structures Neck Neck: normal visual inspection and no lymphadenopathy Carotids: normal carotid upstroke Lymphatic: no lymphadenopathy noted Chest Chest palpation inspection: normal inspection of the chest Resp Effort Inspection: normal respiratory effort, able to speak in complete sentences, symmetric chest movement, no cough and no stridor Auscultation: Bilateral: Clear to Auscultation Cardio Rate: bradycardic Rhythm: regular rhythm Heart Sounds: S1 normal, S2 normal and murmur systolic II/ GI Inspection: normal to inspection Auscultation: normal bowel sounds Palpation: soft Skin General: no rashes or lesions noted Neuro Speech: speech normal Extrem General: normal to inspection and capillary refill normal Results POC SARS AG POC SARS AG Negative Last Edit by Yaima Travis on 07/03/24 10:07 Coding Level of Care Code Off vis,new,level 3 Diagnoses Upper respiratory tract infection, unspecified type J06.9 URI type: unspecified URI Assessment and Plan Assessment and Plan (1) URI (upper respiratory infection): Status: Acute Qualifiers: URI type: unspecified URI Qualified Code(s): J06.9 - Acute upper respiratory infection, unspecified Plan: COVID testing negative. W (more content not included)... Normal [facility] CBC W/Diff, Automatedon 10-0 -2023 Absolute Lymph 1.35 X10 3/uL Normal 0.83-4.51 [facility] Comment on above: Performed By: #### L 501.9520, L500.4050, L500.4100, L506.0400, L100.0100 #### [facility] [address] [place], [address] Absolute Neut 3.6 X10 3/uL Normal 2.0-7.7 [facility] Comment on above: Performed By: #### L [id number], L500.4050, L500.4100, L506.0400, L100.0100 #### [facility] [address] [place], [address] Basophils/100 WBC (Bld) 0.7 % Normal 0-1 [facility] Comment on above: Performed By: #### L [id number], L500.4050, L500.4100, L506.0400, L100.0100 #### [facility] [address] [place], [address] Eosinophils/100 WBC (Bld) 5.6 % High 0-5 [facility] Comment on above: Performed By: #### L [id number], L500.4050, L500.4100, L506.0400, L100.0100 #### [facility] [address] [place], [address] Erythrocyte distribution width (RBC) [Ratio] 12.9 % Normal 11.6-14.6 [facility] Comment on above: Performed By: #### L [id number], L500.4050, L500.4100, L506.0400, L100.0100 #### [facility] [address] [place], [address] Hematocrit (Bld) [Volume fraction] 41.9 % Normal 40-54 [facility] Comment on above: Performed By: #### L [id number], L500.4050, L500.4100, L506.0400, L100.0100 #### [facility] [address] [place], [address] Hemoglobin (Bld) [Mass/Vol] 13.3 g/dL Normal 13.0-16.5 [facility] Comment on above: Performed By: #### L [id number], L500.4050, L500.4100, L506.0400, L100.0100 #### [facility] [address] [place], [address] IG% 0.700 Normal 0.0-0.9 [facility] Comment on above: Result Comment: IG% - Immature Granulocytes (promyelocytes, myelocytes and metamyelocytes) > 1% indicates that a LEFT SHIFT is Present. Performed By: #### L 501.9520, L500.4050, L500.4100, L506.0400, L100.0100 #### [facility] [address] [place], [address] Lymphocytes/100 WBC (Bld) 22.8 % Normal 19-41 [facility] Comment on above: Performed By: #### L [id number], L500.4050, L500.4100, L506.0400, L100.0100 #### [facility] [address] [place], [address] MCH (RBC) [Entitic mass] 29.8 pg Normal 27.0-32.0 [facility] Comment on above: Performed By: #### L [id number], L500.4050, L500.4100, L506.0400, L100.0100 #### [facility] [address] [place], [address] MCHC (RBC) [Mass/Vol] 31.7 g/dL Low 32-36 [facility] Comment on above: Performed By: #### L [id number], L500.4050, L500.4100, L506.0400, L100.0100 #### [facility] [address] [place], [address] MCV (RBC) [Entitic vol] 93.7 fL Normal 80-94 [facility] Comment on above: Performed By: #### L [id number], L500.4050, L500.4100, L506.0400, L100.0100 #### [facility] [address] [place], [address] Monocytes/100 WBC (Bld) 9.5 % Normal 0-10 [facility] Comment on above: Performed By: #### L [id number], L500.4050, L500.4100, L506.0400, L100.0100 #### [facility] [address] [place], [address] Neutrophils/100 WBC (Bld) 60.7 % Normal 47-70 [facility] Comment on above: Performed By: #### L [id number], L500.4050, L500.4100, L506.0400, L100.0100 #### [facility] [address] [place], [address] Nucleated RBC (Bld) [#/Vol] 0 10*3/uL Normal 0-5 [facility] Comment on above: Performed By: #### L [id number], L500.4050, L500.4100, L506.0400, L100.0100 #### [facility] [address] [place], [address] Platelet mean volume (Bld) [Entitic vol] 11.3 fL Normal 6.2-12.0 [facility] Comment on above: Performed By: #### L [id number], L500.4050, L500.4100, L506.0400, L100.0100 #### [facility] [address] [place], [address] Platelets (Bld) [#/Vol] 167 10*3/uL Normal 150-450 [facility] Comment on above: Performed By: #### L [id number], L500.4050, L500.4100, L506.0400, L100.0100 #### [facility] [address] [place], [address] RBC (Bld) [#/Vol] 4.47 10*6/uL Low 4.6-6.2 [facility] Comment on above: Performed By: #### L [id number], L500.4050, L500.4100, L506.0400, L100.0100 #### [facility] [address] [place], [address] RDW SD 44.2 fl High 35.1-43.9 [facility] Comment on above: Performed By: #### L [id number], L500.4050, L500.4100, L506.0400, L100.0100 #### [facility] [address] [place], [address] WBC (Bld) [#/Vol] 5.9 10*3/uL Normal 4.4-11.0 [facility] Comment on above: Performed By: #### L [id number], L500.4050, L500.4100, L506.0400, L100.0100 #### [facility] [address] [place], [address] Comprehensive Metabolic Prof ilon 04-07-2024 Albumin [Mass/Vol] 3.7 g/dL Normal 3.2-5.0 [facility] Comment on above: Order Comment: N Performed By: #### L [id number], L500.4050, L500.4100, L506.0400, L100.0100 #### [facility] [address] [place], [address] Albumin/Globulin [Mass ratio] 1.1 {ratio} Normal 0.9-2.4 [facility] Comment on above: Order Comment: N Performed By: #### L [id number], L500.4050, L500.4100, L506.0400, L100.0100 #### [facility] [address] [place], [address] ALK P 88 U/L Normal 45-117 [facility] Comment on above: Order Comment: N Performed By: #### L [id number], L500.4050, L500.4100, L506.0400, L100.0100 #### [facility] [address] [place], [address] ALT [Catalytic activity/Vol] 13 U/L Low 16-61 [facility] Comment on above: Order Comment: N Performed By: #### L [id number], L500.4050, L500.4100, L506.0400, L100.0100 #### [facility] [address] [place], [address] AST [Catalytic activity/Vol] 18 U/L Normal 15-37 [facility] Comment on above: Order Comment: N Performed By: #### L [id number], L500.4050, L500.4100, L506.0400, L100.0100 #### [facility] [address] [place], [address] Bilirubin [Mass/Vol] 1.00 mg/dL Normal 0.20-1.00 [facility] Comment on above: Order Comment: N Result Comment: For patients on eltrombopag therapy, use of Dimension [place] TBIL is not recommended. Performed By: #### L 501.9520, L500.4050, L500.4100, L506.0400, L100.0100 #### [facility] [address] [place], [address] BUN/CRE 22.5 RATIO High 10-20 [facility] Comment on above: Order Comment: N Performed By: #### L 501.9520, L500.4050, L500.4100, L506.0400, L100.0100 #### [facility] [address] [place], [address] CA,Total 9.2 mg/dL Normal 8.5-10.1 [facility] Comment on above: Order Comment: N Performed By: #### L [id number], L500.4050, L500.4100, L506.0400, L100.0100 #### [facility] [address] [place], [address] Chloride [Moles/Vol] 104 mmol/L Normal 98-107 [facility] Comment on above: Order Comment: N Performed By: #### L 501.9520, L500.4050, L500.4100, L506.0400, L100.0100 #### [facility] [address] [place], [address] CO2 [Moles/Vol] 28.0 mmol/L Normal 21.0-32.0 [facility] Comment on above: Order Comment: N Performed By: #### L 501.9520, L500.4050, L500.4100, L506.0400, L100.0100 #### [facility] [address] [place], [address] Creatinine [Mass/Vol] 1.11 mg/dL Normal 0.70-1.30 [facility] Comment on above: Order Comment: N Result Comment: The validity of the calculated GFR GFRAA in patients over 70 years has not been determined. Clinical correlation is essential. Performed By: #### L 501.9520, L500.4050, L500.4100, L506.0400, L100.0100 #### [facility] [address] [place], [place], [address] EST GFR - AA 81 mL/min Normal >60 [facility] Comment on above: Order Comment: N Result Comment: Afri can Syrian GFR Calc Performed By: #### L 501.9520, L500.4050, L500.4100, L506.0400, L100.0100 #### [facility] [address] [place], [address] GAP 4 Low 5-15 [facility] Comment on above: Order Comment: N Performed By: #### L 501.9520, L500.4050, L500.4100, L506.0400, L100.0100 #### [facility] [address] [place], [address] GFR/1.73 sq M.predicted among non-blacks MDRD (S/P/Bld) [Vol rate/Area] 67 mL/min/{1.73_m2} Normal >60 [facility] Comment on above: Order Comment: N Result Comment: Non- GFR Calc Performed By: #### L [id number], L500.4050, L500.4100, L506.0400, L100.0100 #### [facility] [address] [place], [address] Globulin (S) [Mass/Vol] 3.3 g/dL Normal 2.2-4.2 [facility] Comment on above: Order Comment: N Performed By: #### L [id number], L500.4050, L500.4100, L506.0400, L100.0100 #### [facility] [address] [place], [address] Glucose [Mass/Vol] 103 mg/dL Normal 74-106 [facility] Comment on above: Order Comment: N Result Comment: Fast ing Glucose result from 100 to 125 mg/dL suggests IMPAIRED HOMEOSTASIS per A.D.A. criteria. Performed By: #### L 501.9520, L500.4050, L500.4100, L506.0400, L100.0100 #### [facility] [address] [place], [address] Potassium [Moles/Vol] 4.2 mmol/L Normal 3.5-5.1 [facility] Comment on above: Order Comment: N Performed By: #### L 501.9520, L500.4050, L500.4100, L506.0400, L100.0100 #### [facility] [address] [place], [address] Sodium [Moles/Vol] 136 mmol/L Normal 136-145 [facility] Comment on above: Order Comment: N Performed By: #### L 501.9520, L500.4050, L500.4100, L506.0400, L100.0100 #### [facility] [address] [place], [address] T PROT 7.0 g/dL Normal 6.4-8.2 [facility] Comment on above: Order Comment: N Performed By: #### L 501.9520, L500.4050, L500.4100, L506.0400, L100.0100 #### [facility] [address] [place], [address] Urea nitrogen [Mass/Vol] 25 mg/dL High 7-18 [facility] Comment on above: Order Comment: N Performed By: #### L [id number], L500.4050, L500.4100, L506.0400, L100.0100 #### [facility] [address] [place], [address] Lipid Profileon 04-07-2024 Cholesterol [Mass/Vol] 122 mg/dL Normal 200 [facility] Comment on above: Order Comment: N Result Comment: <200 mg/dL Desirable 200-240 mg/dL Borderline >240 mg/dL High Risk Performed By: #### L 501.9520, L500.4050, L500.4100, L506.0400, L100.0100 #### [facility] [address] [place], [address] Cholesterol in HDL [Mass/Vol] 40 mg/dL Normal [facility] Comment on above: Order Comment: N Result Comment: The drugs N-Acetylcysteine and Metamizole may falsely depress this assay. Reference Range HDL <40 mg/dL Low HDL Cholesterol HDL >or= 60 mg/dL High HDL Cholesterol Performed By: #### L 501.9520, L500.4050, L500.4100, L506.0400, L100.0100 #### [facility] [address] [place], [address] Cholesterol in LDL [Mass/Vol] 65 mg/dL Normal 0-130 [facility] Comment on above: Order Comment: N Performed By: #### L 501.9520, L500.4050, L500.4100, L506.0400, L100.0100 #### [facility] [address] [place], [address] Cholesterol in VLDL [Mass/Vol] 17 mg/dL Normal 5-40 [facility] Comment on above: Order Comment: N Performed By: #### L 501.9520, L500.4050, L500.4100, L506.0400, L100.0100 #### [facility] [address] [place], [place], [id number] Triglyceride [Mass/Vol] 83 mg/dL Normal [facility] Comment on above: Order Comment: N Result Comment: The drugs N-Acetylcysteine and Metamizole may falsely depress this assay. Serum Triglycerides Reference Interval Normal <150 mg/dL Borderline high 150 - 199 mg/dL High 200 - 499 mg/dL Very High > or = 500 mg/dL Performed By: #### L 501.9520, L500.4050, L500.4100, L506.0400, L100.0100 #### [facility] [address] [place], [address] T4 Free Directon 04-07-2024 T4 FREE DIRECT 0.97 ng/dL Normal 0.76-1.46 [facility] Comment on above: Order Comment: N Performed By: #### L 501.9520, L500.4050, L500.4100, L506.0400, L100.0100 #### [facility] [address] [place], [address] Thyroid Stim Hormone (TSH)on 04-07-2024 TSH 2.890 uIU/mL Normal 0.358-3.740 [facility] Comment on above: Order Comment: N Performed By: #### L 501.9520, L500.4050, L500.4100, L506.0400, L100.0100 #### [facility] [address] [place], [place], [id number] Basophil percentageOrdered B y: Merle Stathopoulos on 06-24-2023 Cholesterol [Mass/Vol] 130 mg/dL <200 [facility] Comment on above: <200 mg/dL Desirable 200-240 mg/dL Borderline >240 mg/dL High Risk Triglyceride [Mass/Vol] 159 mg/dL <199 [facility] Comment on above: The drugs N-Acetylcy steine and Metamizole may falsely depress this assay.Serum Triglycerides Reference Interval Normal <150 mg/dL Borderline high 150 - 199 mg/dL High 200 - 499 mg/dL Very High > or = 500 mg/dL Laboratory - Chemistry and C hemistry - challengeOrdered By: Merle Alexander on 06-24-2023 Free T4 [Mass/Vol] 1.00 ng/dL 0.76-1.46 [facility] No Panel InformationOrdered By: Merle Alexander on 06-24-2023 Thyroid Stimulating Hormone (TSH) 2.13 uIU/mL 0.358-3.74 [facility] Serum or plasma cholesterol in HDL measurement (mass/volume)Ordered By: [facility]le [facility] on 06-24-2023 Cholesterol in HDL [Mass/Vol] 40 mg/dL >40 [facility] Comment on above: The drugs N-Acetylcy steine and Metamizole may falsely depress this assay. Reference Range HDL <40 mg/dL Low HDL Cholesterol HDL >or= 60 mg/dL High HDL Cholesterol Serum or plasma cholesterol in VLDL measurement (mass/volume)Ordered By: [facility] on 06-24-2023 Cholesterol in VLDL [Mass/Vol] 32 mg/dL 5-40 [facility] Serum or plasma low density lipoprotein (LDL) cholesterol measurement (mass/volume)Ordered By: Merle Statliliaoulgolden on 06-24-2023 Cholesterol in LDL [Mass/Vol] 58 mg/dL 0-130 [facility] Laboratory - Chemistry and C hemistry - challengeOrdered By: Ahswin Moreland on 04-03-2023 Free T4 [Mass/Vol] 0.99 ng/dL 0.76-1.46 [facility] No Panel InformationOrdered By: Ashwin Moreland on 04-03-2023 Thyroid Stimulating Hormone (TSH) 1.65 uIU/mL 0.358-3.74 [facility] Absolute lymphocyte countOrd ered By: Dmitriy Hardy on 01-20-2023 Lymphocytes Auto (Unsp spec) [#/Vol] 1.45 10*3/uL 0.83-4.51 [facility] Basophil percentageOrdered B y: Dmitriy Hardy on 01-20-2023 Basophils/100 WBC (Bld) 0.7 % 0-1 [facility] Bilirubin [Mass/Vol] 0.60 mg/dL 0.20-1.00 [facility] Comment on above: For patients on eltr ombopag therapy, use of Dimension [place] TBIL is not recommended. Chloride [Moles/Vol] 110 mmol/L 98-107 [facility] Cholesterol [Mass/Vol] 111 mg/dL <200 [facility] Comment on above: <200 mg/dL Desirable 200-240 mg/dL Borderline >240 mg/dL High Risk Eosinophils/100 WBC (Bld) 6.6 % 0-5 [facility] Glucose [Mass/Vol] 94 mg/dL 74-106 [facility] Neutrophils (Bld) [#/Vol] 4.7 10*3/uL 2.0-7.7 [facility] Neutrophils/100 WBC (Bld) 64.3 % 47-70 [facility] Potassium [Moles/Vol] 4.2 mmol/L 3.5-5.1 [facility] Protein [Mass/Vol] 7.0 g/dL 6.4-8.2 [facility] Sodium [Moles/Vol] 141 mmol/L 136-145 [facility] Triglyceride [Mass/Vol] 133 mg/dL <199 [facility] Comment on above: The drugs N-Acetylcy steine and Metamizole may falsely depress this assay.Serum Triglycerides Reference Interval Normal <150 mg/dL Borderline high 150 - 199 mg/dL High 200 - 499 mg/dL Very High > or = 500 mg/dL WBC (Bld) [#/Vol] 7.3 10*3/uL 4.4-11.0 [facility] Blood erythrocytes count (nu mber/volume)Ordered By: Dmitriy Hardy on 01-20-2023 RBC (Bld) [#/Vol] 4.31 10*6/uL 4.6-6.2 [facility] Blood hemoglobin measurement (mass/volume)Ordered By: Dmitriy Hardy on 01-20-2023 Hemoglobin (Bld) [Mass/Vol] 13.2 g/dL 13.0-16.5 [facility] Blood lymphocytes/100 leukoc ytesOrdered By: Dmitriy Hardy on 01-20-2023 Lymphocytes/100 WBC (Bld) 19.9 % 19-41 [facility] Blood monocytes/100 leukocyt esOrdered By: Dmitriy Hardy on 01-20-2023 Monocytes/100 WBC (Bld) 8.2 % 0-10 [facility] Blood platelet mean volumeOr dered By: Dmitriy Hardy on 01-20-2023 Platelet mean volume (Bld) [Entitic vol] 10.9 fL 6.2-12.0 [facility] Determination of erythrocyte mean corpuscular volume (MCV)Ordered By: Dmitriy Hardy on 01-20-2023 MCV (RBC) [Entitic vol] 93.7 fL 80-94 [facility] Hematocrit Auto (Bld) [Volum e fraction]Ordered By: Dmitriy Hardy on 01-20-2023 Hematocrit (Bld) [Volume fraction] 40.4 % 40-54 [facility] Laboratory - Chemistry and C hemistry - challengeOrdered By: Dmitriy Hardy on 01-20-2023 ALP [Catalytic activity/Vol] 85 U/L 45-117 [facility] ALT [Catalytic activity/Vol] 17 U/L 16-61 [facility] CO2 [Moles/Vol] 28.0 mmol/L 21.0-32.0 [facility] Free T4 [Mass/Vol] 0.69 ng/dL 0.76-1.46 [facility] Globulin (S) [Mass/Vol] 3.4 g/dL 2.2-4.2 [facility] Urea nitrogen/Creatinine [Mass ratio] 20.3 mg/mg 10-20 [facility] - Hematology and Cell countsOrdered By: Dmitriy Hardy on 01-20-2023 Erythrocyte distribution width (RBC) [Entitic vol] 43.8 fL 35.1-43.9 [facility] Erythrocyte distribution width (RBC) [Ratio] 12.7 % 11.6-14.6 [facility] Immature granulocytes/100 WBC (Bld) 0.300 % 0.0-0.9 [facility] Comment on above: IG% - Immature Granu locytes (promyelocytes, myelocytes and metamyelocytes) > 1% indicates that a LEFT SHIFT is Present. MCH (RBC) [Entitic mass] 30.6 pg 27.0-32.0 [facility] Nucleated RBC/100 WBC (Bld) [Ratio] 0 % 0-5 [facility] MCHC Auto (RBC) [Mass/Vol]Or dered By: Dmitriy Hardy on 01-20-2023 MCHC (RBC) [Mass/Vol] 32.7 g/dL 32-36 [facility] No Panel InformationOrdered By: Dmitriy Hardy on 01-20-2023 Estimated GFR (MDRD) Amer 61 mL/min >60 [facility] Comment on above: GFR Calc Estimated GFR (MDRD) Non-Af Amer 50 mL/min >60 [facility] Comment on above: Non- GFR Calc Thyroid Stimulating Hormone (TSH) 4.41 uIU/mL 0.358-3.74 [facility] Platelets bldOrdered By: Dean Hardy on 01-20-2023 Platelets (Bld) [#/Vol] 170 10*3/uL 150-450 [facility] Serum or plasma albumin dulce urement (mass/volume)Ordered By: Dmitriy Hardy on 01-20-2023 Albumin [Mass/Vol] 3.6 g/dL 3.2-5.0 [facility] Serum or plasma albumin/glob ulin mass ratioOrdered By: Dmitriy Hardy on 01-20-2023 Albumin/Globulin [Mass ratio] 1.1 {ratio} 0.9-2.4 [facility] Serum or plasma calcium dulce urement (mass/volume)Ordered By: Dmitriy Hardy on 01-20-2023 Calcium [Mass/Vol] 9.0 mg/dL 8.5-10.1 [facility] Serum or plasma cholesterol in HDL measurement (mass/volume)Ordered By: Dmitriy Hardy on 01-20-2023 Cholesterol in HDL [Mass/Vol] 33 mg/dL >40 [facility] Comment on above: The drugs N-Acetylcy steine and Metamizole may falsely depress this assay. Reference Range HDL <40 mg/dL Low HDL Cholesterol HDL >or= 60 mg/dL High HDL Cholesterol Serum or plasma cholesterol in VLDL measurement (mass/volume)Ordered By: Dmitriy Hardy on 07-18-2023 Cholesterol in VLDL [Mass/Vol] 27 mg/dL 5-40 [facility] Serum or plasma creatinine m easurement (mass/volume)Ordered By: Dmitriy Hardy on 01-20-2023 Creatinine [Mass/Vol] 1.43 mg/dL 0.70-1.30 [facility] Comment on above: The validity of the calculated GFR & GFRAA in patients over 70 years has not been determined. Clinical correlation is essential. Serum or plasma low density lipoprotein (LDL) cholesterol measurement (mass/volume)Ordered By: Dmitriy Hardy on 01-20-2023 Cholesterol in LDL [Mass/Vol] 51 mg/dL 0-130 [facility] Serum or plasma urea nitroge n measurement (mass/volume)Ordered By: Dmitriy Hardy on 01-20-2023 Urea nitrogen [Mass/Vol] 29 mg/dL 01-20 [facility] Thin prep Papanicolaou smear with manual screeningOrdered By: Dmitriy Hardy on 01-20-2023 Thin prep Papanicolaou smear with manual screening 22 U/L 1537 [facility] Thin prep Papanicolaou smear with manual screening 3 5-15 [facility] Absolute lymphocyte counton 06-24-2022 Lymphocytes Auto (Unsp spec) [#/Vol] 1.40 10*3/uL 0.83-4.51 [facility] Work Phone: Basophil percentageon 2021 Basophils/100 WBC (Bld) 0.9 % 0-1 [facility] Work Phone: [phone] Bilirubin [Mass/Vol] 0.70 mg/dL 0.20-1.00 [facility] Work Phone: [phone] Comment on above: For patients on eltr ombopag therapy, use of Dimension [place] TBIL is not recommended. Chloride [Moles/Vol] 103 mmol/L 98-107 [facility] Work Phone: Cholesterol [Mass/Vol] 116 mg/dL <200 [facility] Work Phone: Comment on above: <200 mg/dL Desirable 200-240 mg/dL Borderline >240 mg/dL High Risk Eosinophils/100 WBC (Bld) 6.9 % 0-5 [facility] Work Phone: Glucose [Mass/Vol] 80 mg/dL 74-106 [facility] Work Phone: Neutrophils (Bld) [#/Vol] 4.3 10*3/uL 2.0-7.7 [facility] Work Phone: Neutrophils/100 WBC (Bld) 61.6 % 47-70 [facility] Work Phone: Potassium [Moles/Vol] 4.5 mmol/L 3.5-5.1 [facility] Work Phone: Protein [Mass/Vol] 6.9 g/dL 6.4-8.2 [facility] Work Phone: Sodium [Moles/Vol] 139 mmol/L 136-145 [facility] Work Phone: Triglyceride [Mass/Vol] 101 mg/dL <199 [facility] Work Phone: Comment on above: The drugs N-Acetylcy steine and Metamizole may falsely depress this assay.Serum Triglycerides Reference Interval Normal <150 mg/dL Borderline high 150 - 199 mg/dL High 200 - 499 mg/dL Very High > or = 500 mg/dL WBC (Bld) [#/Vol] 6.9 10*3/uL 4.4-11.0 [facility] Work Phone: Blood erythrocytes count (nu mber/volume)on 06-24-2022 RBC (Bld) [#/Vol] 4.44 10*6/uL 4.6-6.2 [facility] Work Phone: Blood hemoglobin measurement (mass/volume)on 06-24-2022 Hemoglobin (Bld) [Mass/Vol] 13.8 g/dL 13.0-16.5 [facility] Work Phone: Blood lymphocytes/100 leukoc yteson 06-24-2022 Lymphocytes/100 WBC (Bld) 20.2 % 19-41 [facility] Work Phone: Blood monocytes/100 leukocyt eson 06-24-2022 Monocytes/100 WBC (Bld) 9.5 % 0-10 [facility] Work Phone: Blood platelet mean volumeon 06-24-2022 Platelet mean volume (Bld) [Entitic vol] 10.7 fL 6.2-12.0 [facility] Work Phone: Determination of erythrocyte mean corpuscular volume (MCV)on 06-24-2022 MCV (RBC) [Entitic vol] 93.7 fL 80-94 [facility] Work Phone: Hematocrit Auto (Bld) [Volum e fraction]on 06-24-2022 Hematocrit (Bld) [Volume fraction] 41.6 % 40-54 [facility] Work Phone: Laboratory - Chemistry and C hemistry - challengeon 06-24-2022 ALP [Catalytic activity/Vol] 89 U/L 45-117 [facility] Work Phone: ALT [Catalytic activity/Vol] 22 U/L 16-61 [facility] Work Phone: CO2 [Moles/Vol] 30.0 mmol/L 21.0-32.0 [facility] Work Phone: Free T4 [Mass/Vol] 0.86 ng/dL 0.76-1.46 [facility] Work Phone: Globulin (S) [Mass/Vol] 3.3 g/dL 2.2-4.2 [facility] Work Phone: Urea nitrogen/Creatinine [Mass ratio] 24.0 mg/mg 04-24 [facility] Work Phone: Laboratory - Hematology and Cell countson 06-24-2022 Erythrocyte distribution width (RBC) [Entitic vol] 43.9 fL 35.1-43.9 [facility] Work Phone: Erythrocyte distribution width (RBC) [Ratio] 12.7 % 11.6-14.6 [facility] Work Phone: Immature granulocytes/100 WBC (Bld) 0.900 % 0.0-0.9 [facility] Work Phone: Comment on above: IG% - Immature Granu locytes (promyelocytes, myelocytes and metamyelocytes) > 1% indicates that a LEFT SHIFT is Present. MCH (RBC) [Entitic mass] 31.1 pg 27.0-32.0 [facility] Work Phone: Nucleated RBC/100 WBC (Bld) [Ratio] 0 % 0-5 [facility] Work Phone: [phone] MCHC Auto (RBC) [Mass/Vol]on 06-24-2022 MCHC (RBC) [Mass/Vol] 33.2 g/dL 32-36 [facility] Work Phone: No Panel Informationon 06-24 Estimated GFR (MDRD) Amer 88 mL/min >60 [facility] Work Phone: Comment on above: GFR Calc Estimated GFR (MDRD) Non-Af Amer 72 mL/min >60 [facility] Work Phone: [phone] Comment on above: Non- GFR Calc Thyroid Stimulating Hormone (TSH) 8.36 uIU/mL 0.358-3.74 [facility] Work Phone: Platelets bldon 06-24-2022 Platelets (Bld) [#/Vol] 178 10*3/uL 150-450 [facility] Work Phone: [phone] Serum or plasma albumin dulce urement (mass/volume)on 06-24-2022 Albumin [Mass/Vol] 3.6 g/dL 3.2-5.0 [facility] Work Phone: [phone] Serum or plasma albumin/glob ulin mass ratioon 06-24-2022 Albumin/Globulin [Mass ratio] 1.1 {ratio} 0.9-2.4 [facility] Work Phone: [phone] Serum or plasma calcium dulce urement (mass/volume)on 06-24-2022 Calcium [Mass/Vol] 9.0 mg/dL 8.5-10.1 [facility] Work Phone: Serum or plasma cholesterol in HDL measurement (mass/volume)on 06-24-2022 Cholesterol in HDL [Mass/Vol] 34 mg/dL >40 [facility] Work Phone: Comment on above: The drugs N-Acetylcy steine and Metamizole may falsely depress this assay. Reference Range HDL <40 mg/dL Low HDL Cholesterol HDL >or= 60 mg/dL High HDL Cholesterol Serum or plasma cholesterol in VLDL measurement (mass/volume)on 06-24-2022 Cholesterol in VLDL [Mass/Vol] 20 mg/dL 5-40 [facility] Work Phone: Serum or plasma creatinine m easurement (mass/volume)on 06-24-2022 Creatinine [Mass/Vol] 1.04 mg/dL 0.70-1.30 [facility] Work Phone: Comment on above: The validity of the calculated GFR & GFRAA in patients over 70 years has not been determined. Clinical correlation is essential. Serum or plasma low density lipoprotein (LDL) cholesterol measurement (mass/volume)on 06-24-2022 Cholesterol in LDL [Mass/Vol] 62 mg/dL 0-130 [facility] Work Phone: Serum or plasma urea nitroge n measurement (mass/volume)on 06-24-2022 Urea nitrogen [Mass/Vol] 25 mg/dL 7-18 [facility] Work Phone: Thin prep Papanicolaou smear with manual screeningon 06-24-2022 Thin prep Papanicolaou smear with manual screening 19 U/L 15-37 [facility] Work Phone: [phone] Thin prep Papanicolaou smear with manual screening 6 5-15 [facility] Work Phone: Laboratory - Microbiology an d Antimicrobial susceptibilityon 04-03-2022 SARS-CoV-2 (COVID-19) RNA MARY+probe Ql (Unsp spec) Not detected Not Detect [facility] Work Phone: Comment on above: Normal Reference Ran ge: Not DetectedMethod:(RT-PCR) real-time reverse transcriptase PCRLuTeamBuy Instrument*The Food and Drug Administration (FDA) has issued an Emergency Use Authorization (EAU) for the [employer] SARS-CoV-2 Assay for the rapid detection of the virus that causes COVID-19. This test has been validated, but the FDAs independent review of this validation is pending.*Negative results do not preclude infection and should not be used as the sole basis for treatment or patient management. Optimum specimen types and timing for peak viral levels during infections caused by SARS-CoV-2 have not been determined. Collection of multiple specimens from the same patient may be necessary to detect the virus. The possibility of a false negative result should be considered if the patient has clinical presentation or has had recent exposure. XR CALCANEOUS MINIMUM 2 VIEW S RIGHTon 02-28-2022 XR CALCANEOUS MINIMUM 2 VIEWS RIGHT ORIGINAL EXAMINATION: TWO XRAY VIEWS OF THE RIGHT HEEL/CALCANEUS 02/27/2022 2:29 pm COMPARISON: None. HISTORY: ORDERING SYSTEM PROVIDED HISTORY: Reason for Exam: Right heel pain for 1 month. No known injury. Plantar fasciitis, right foot FINDINGS: No acute fracture or dislocation. Small anterior tibiotalar osteophytes. Minimal talonavicular osteophytes. No tibiotalar joint effusion. No significant soft tissue swelling. Vascular calcifications. Small Achilles calcaneal enthesophyte. IMPRESSION: 1. No acute osseous abnormality. No significant soft tissue swelling. I have personally reviewed the images of this examination and agree with the resident's findings and interpretation. Interpreted by: Sergei Hunter MD Preliminary Report By: Emmanuel Lawson Electronically signed By Sergei Hunter MD Dictated Date: 02/28/2022 9:48:14 AM Prelim Date: 02/28/2022 11:29:50 AM Sign Date: 02/28/2022 11:29:50 AM Ordering Provider: [facility] ([place]) Absolute lymphocyte counton 12-25-2021 Lymphocytes Auto (Unsp spec) [#/Vol] 1.31 10*3/uL 0.83-4.51 [facility] Work Phone: Basophil percentageon 2021 Basophils/100 WBC (Bld) 0.5 % 0-1 [facility] Work Phone: Bilirubin [Mass/Vol] 0.80 mg/dL 0.20-1.00 [facility] Work Phone: Comment on above: For patients on eltr ombopag therapy, use of Dimension [place] TBIL is not recommended. Chloride [Moles/Vol] 108 mmol/L 98-107 [facility] Work Phone: Cholesterol [Mass/Vol] 100 mg/dL <200 [facility] Work Phone: Comment on above: <200 mg/dL Desirable 200-240 mg/dL Borderline >240 mg/dL High Risk Eosinophils/100 WBC (Bld) 4.9 % 0-5 [facility] Work Phone: [phone] Glucose [Mass/Vol] 93 mg/dL 74-106 [facility] Work Phone: Neutrophils (Bld) [#/Vol] 3.6 10*3/uL 2.0-7.7 [facility] Work Phone: Neutrophils/100 WBC (Bld) 61.7 % 47-70 [facility] Work Phone: Potassium [Moles/Vol] 4.2 mmol/L 3.5-5.1 [facility] Work Phone: Protein [Mass/Vol] 7.0 g/dL 6.4-8.2 [facility] Work Phone: Sodium [Moles/Vol] 139 mmol/L 136-145 [facility] Work Phone: Triglyceride [Mass/Vol] 58 mg/dL <199 [facility] Work Phone: Comment on above: The drugs N-Acetylcy steine and Metamizole may falsely depress this assay.Serum Triglycerides Reference Interval Normal <150 mg/dL Borderline high 150 - 199 mg/dL High 200 - 499 mg/dL Very High > or = 500 mg/dL WBC (Bld) [#/Vol] 5.9 10*3/uL 4.4-11.0 [facility] Work Phone: Blood erythrocytes count (nu mber/volume)on 12-25-2021 RBC (Bld) [#/Vol] 4.38 10*6/uL 4.6-6.2 [facility] Work Phone: Blood hemoglobin measurement (mass/volume)on 12-25-2021 Hemoglobin (Bld) [Mass/Vol] 13.2 g/dL 13.0-16.5 [facility] Work Phone: Blood lymphocytes/100 leukoc yteson 12-25-2021 Lymphocytes/100 WBC (Bld) 22.3 % 19-41 [facility] Work Phone: Blood monocytes/100 leukocyt eson 12-25-2021 Monocytes/100 WBC (Bld) 10.1 % 0-10 [facility] Work Phone: Blood platelet mean volumeon 12-25-2021 Platelet mean volume (Bld) [Entitic vol] 10.8 fL 6.2-12.0 [facility] Work Phone: Determination of erythrocyte mean corpuscular volume (MCV)on 12-25-2021 MCV (RBC) [Entitic vol] 91.8 fL 80-94 [facility] Work Phone: Hematocrit Auto (Bld) [Volum e fraction]on 12-25-2021 Hematocrit (Bld) [Volume fraction] 40.2 % 40-54 [facility] Work Phone: Laboratory - Chemistry and C hemistry - challengeon 12-25-2021 ALP [Catalytic activity/Vol] 90 U/L 45-117 [facility] Work Phone: ALT [Catalytic activity/Vol] 16 U/L 16-61 [facility] Work Phone: CO2 [Moles/Vol] 26.0 mmol/L 21.0-32.0 [facility] Work Phone: Free T4 [Mass/Vol] 0.85 ng/dL 0.76-1.46 [facility] Work Phone: Globulin (S) [Mass/Vol] 3.2 g/dL 2.2-4.2 [facility] Work Phone: [phone] Urea nitrogen/Creatinine [Mass ratio] 32.1 mg/mg 10-20 [facility] Work Phone: [phone] Laboratory - Hematology and Cell countson 12-25-2021 Erythrocyte distribution width (RBC) [Entitic vol] 43.0 fL 35.1-43.9 [facility] Work Phone: [phone] Erythrocyte distribution width (RBC) [Ratio] 12.7 % 11.6-14.6 [facility] Work Phone: [phone] Immature granulocytes/100 WBC (Bld) 0.500 % 0.0-0.9 [facility] Work Phone: [phone] Comment on above: IG% - Immature Granu locytes (promyelocytes, myelocytes and metamyelocytes) > 1% indicates that a LEFT SHIFT is Present. MCH (RBC) [Entitic mass] 30.1 pg 27.0-32.0 [facility] Work Phone: [phone] Nucleated RBC/100 WBC (Bld) [Ratio] 0 % 0-5 [facility] Work Phone: [phone] MCHC Auto (RBC) [Mass/Vol]on 12-25-2021 MCHC (RBC) [Mass/Vol] 32.8 g/dL 32-36 [facility] Work Phone: No Panel Informationon 12-25 Estimated GFR (MDRD) Amer 83 mL/min >60 [facility] Work Phone: [phone] Comment on above: GFR Calc Estimated GFR (MDRD) Non-Af Amer 69 mL/min >60 [facility] Work Phone: [phone] Comment on above: Non- GFR Calc Thyroid Stimulating Hormone (TSH) 3.98 uIU/mL 0.358-3.74 [facility] Work Phone: Platelets bldon 12-25-2021 Platelets (Bld) [#/Vol] 176 10*3/uL 150-450 [facility] Work Phone: [phone] Serum or plasma albumin dulce urement (mass/volume)on 12-25-2021 Albumin [Mass/Vol] 3.8 g/dL 3.2-5.0 [facility] Work Phone: Serum or plasma albumin/glob ulin mass ratioon 12-25-2021 Albumin/Globulin [Mass ratio] 1.2 {ratio} 0.9-2.4 [facility] Work Phone: Serum or plasma calcium dulce urement (mass/volume)on 12-25-2021 Calcium [Mass/Vol] 8.8 mg/dL 8.5-10.1 [facility] Work Phone: Serum or plasma cholesterol in HDL measurement (mass/volume)on 12-25-2021 Cholesterol in HDL [Mass/Vol] 37 mg/dL >40 [facility] Work Phone: Comment on above: The drugs N-Acetylcy steine and Metamizole may falsely depress this assay. Reference Range HDL <40 mg/dL Low HDL Cholesterol HDL >or= 60 mg/dL High HDL Cholesterol Serum or plasma cholesterol in VLDL measurement (mass/volume)on 12-25-2021 Cholesterol in VLDL [Mass/Vol] 12 mg/dL 5-40 [facility] Work Phone: Serum or plasma creatinine m easurement (mass/volume)on 12-25-2021 Creatinine [Mass/Vol] 1.09 mg/dL 0.70-1.30 [facility] Work Phone: Comment on above: The validity of the calculated GFR & GFRAA in patients over 70 years has not been determined. Clinical correlation is essential. Serum or plasma low density lipoprotein (LDL) cholesterol measurement (mass/volume)on 12-25-2021 Cholesterol in LDL [Mass/Vol] 51 mg/dL 0-130 [facility] Work Phone: Serum or plasma urea nitroge n measurement (mass/volume)on 12-25-2021 Urea nitrogen [Mass/Vol] 35 mg/dL 7-18 [facility] Work Phone: Thin prep Papanicolaou smear with manual screeningon 12-25-2021 Thin prep Papanicolaou smear with manual screening 16 U/L 15-37 [facility] Work Phone: Thin prep Papanicolaou smear with manual screening 5 5-15 [facility] Work Phone: Absolute lymphocyte counton 10-01-2021 Lymphocytes Auto (Unsp spec) [#/Vol] 1.39 10*3/uL 0.83-4.51 [facility] Work Phone: Basophil percentageon 2021 Basophils/100 WBC (Bld) 0.8 % 0-1 [facility] Work Phone: Bilirubin [Mass/Vol] 0.90 mg/dL 0.20-1.00 [facility] Work Phone: Comment on above: For patients on eltr ombopag therapy, use of Dimension [place] TBIL is not recommended. Chloride [Moles/Vol] 105 mmol/L 98-107 [facility] Work Phone: Cholesterol [Mass/Vol] 232 mg/dL <200 [facility] Work Phone: Comment on above: <200 mg/dL Desirable 200-240 mg/dL Borderline >240 mg/dL High Risk Eosinophils/100 WBC (Bld) 5.0 % 0-5 [facility] Work Phone: Glucose [Mass/Vol] 101 mg/dL 74-106 [facility] Work Phone: Comment on above: Fasting Glucose resu lt from 100 to 125 mg/dL suggests IMPAIRED HOMEOSTASIS per A.D.A. criteria. Neutrophils (Bld) [#/Vol] 3.9 10*3/uL 2.0-7.7 [facility] Work Phone: Neutrophils/100 WBC (Bld) 62.0 % 47-70 [facility] Work Phone: Potassium [Moles/Vol] 4.6 mmol/L 3.5-5.1 [facility] Work Phone: Protein [Mass/Vol] 7.8 g/dL 6.4-8.2 [facility] Work Phone: Sodium [Moles/Vol] 138 mmol/L 136-145 [facility] Work Phone: [phone] Triglyceride [Mass/Vol] 141 mg/dL <199 [facility] Work Phone: [phone] Comment on above: The drugs N-Acetylcy steine and Metamizole may falsely depress this assay.Serum Triglycerides Reference Interval Normal <150 mg/dL Borderline high 150 - 199 mg/dL High 200 - 499 mg/dL Very High > or = 500 mg/dL WBC (Bld) [#/Vol] 6.4 10*3/uL 4.4-11.0 [facility] Work Phone: Blood erythrocytes count (nu mber/volume)on 10-01-2021 RBC (Bld) [#/Vol] 4.85 10*6/uL 4.6-6.2 [facility] Work Phone: [phone] Blood hemoglobin measurement (mass/volume)on 10-01-2021 Hemoglobin (Bld) [Mass/Vol] 14.4 g/dL 13.0-16.5 [facility] Work Phone: Blood lymphocytes/100 leukoc yteson 10-01-2021 Lymphocytes/100 WBC (Bld) 21.9 % 19-41 [facility] Work Phone: Blood monocytes/100 leukocyt eson 10-01-2021 Monocytes/100 WBC (Bld) 9.4 % 0-10 [facility] Work Phone: [phone] Blood platelet mean volumeon 10-01-2021 Platelet mean volume (Bld) [Entitic vol] 10.7 fL 6.2-12.0 [facility] Work Phone: [phone] Determination of erythrocyte mean corpuscular volume (MCV)on 10-01-2021 MCV (RBC) [Entitic vol] 92.6 fL 80-94 [facility] Work Phone: [phone] Hematocrit Auto (Bld) [Volum e fraction]on 10-01-2021 Hematocrit (Bld) [Volume fraction] 44.9 % 40-54 [facility] Work Phone: [phone] Laboratory - Chemistry and C hemistry - challengeon 10-01-2021 ALP [Catalytic activity/Vol] 100 U/L 45-117 [facility] Work Phone: [phone] ALT [Catalytic activity/Vol] 17 U/L 16-61 [facility] Work Phone: [phone] CO2 [Moles/Vol] 30.0 mmol/L 21.0-32.0 [facility] Work Phone: [phone] Globulin (S) [Mass/Vol] 3.9 g/dL 2.2-4.2 [facility] Work Phone: [phone] Urea nitrogen/Creatinine [Mass ratio] 20.5 mg/mg 10-20 [facility] Work Phone: [phone] Laboratory - Hematology and Cell countson 10-01-2021 Erythrocyte distribution width (RBC) [Entitic vol] 44.7 fL 35.1-43.9 [facility] Work Phone: [phone] Erythrocyte distribution width (RBC) [Ratio] 13.2 % 11.6-14.6 [facility] Work Phone: [phone] Immature granulocytes/100 WBC (Bld) 0.900 % 0.0-0.9 [facility] Work Phone: [phone] Comment on above: IG% - Immature Granu locytes (promyelocytes, myelocytes and metamyelocytes) > 1% indicates that a LEFT SHIFT is Present. MCH (RBC) [Entitic mass] 29.7 pg 27.0-32.0 [facility] Work Phone: [phone] Nucleated RBC/100 WBC (Bld) [Ratio] 0 % 0-5 [facility] Work Phone: [phone] MCHC Auto (RBC) [Mass/Vol]on 10-01-2021 MCHC (RBC) [Mass/Vol] 32.1 g/dL 32-36 [facility] Work Phone: [phone] No Panel Informationon 10-01 Estimated GFR (MDRD) Amer 81 mL/min >60 [facility] Work Phone: Comment on above: GFR Calc Estimated GFR (MDRD) Non-Af Amer 67 mL/min >60 [facility] Work Phone: Comment on above: Non- GFR Calc Thyroglobulin Antibody 8.3 IU/mL 0.0-0.9 [facility] Work Phone: Comment on above: Thyroglobulin Antibo dy measured by [employer] Platelets bldon 10-01-2021 Platelets (Bld) [#/Vol] 197 10*3/uL 150-450 [facility] Work Phone: Serum or plasma albumin dulce urement (mass/volume)on 10-01-2021 Albumin [Mass/Vol] 3.9 g/dL 3.2-5.0 [facility] Work Phone: Serum or plasma albumin/glob ulin mass ratioon 10-01-2021 Albumin/Globulin [Mass ratio] 1.0 {ratio} 0.9-2.4 [facility] Work Phone: Serum or plasma calcium dulce urement (mass/volume)on 10-01-2021 Calcium [Mass/Vol] 9.1 mg/dL 8.5-10.1 [facility] Work Phone: Serum or plasma cholesterol in HDL measurement (mass/volume)on 10-01-2021 Cholesterol in HDL [Mass/Vol] 32 mg/dL >40 [facility] Work Phone: Comment on above: The drugs N-Acetylcy steine and Metamizole may falsely depress this assay. Reference Range HDL <40 mg/dL Low HDL Cholesterol HDL >or= 60 mg/dL High HDL Cholesterol Serum or plasma cholesterol in VLDL measurement (mass/volume)on 10-01-2021 Cholesterol in VLDL [Mass/Vol] 28 mg/dL 5-40 [facility] Work Phone: [phone] Serum or plasma creatinine m easurement (mass/volume)on 10-01-2021 Creatinine [Mass/Vol] 1.12 mg/dL 0.70-1.30 [facility] Work Phone: Comment on above: The validity of the calculated GFR & GFRAA in patients over 70 years has not been determined. Clinical correlation is essential. Serum or plasma low density lipoprotein (LDL) cholesterol measurement (mass/volume)on 10-01-2021 Cholesterol in LDL [Mass/Vol] 172 mg/dL 0-130 [facility] Work Phone: Serum or plasma thyroperoxid ase antibody assay (units/volume)on 10-01-2021 TPO Ab Qn 337 [IU]/mL 0-34 [facility] Work Phone: Comment on above: Performed at: [facility] [address] [id number] Director: Tuan Johnson PhD, Phone: [phone] at: [facility] [id number] [place], [place] [id number] Director: Ok Whitfield MD, Phone: [phone] Serum or plasma urea nitroge n measurement (mass/volume)on 10-01-2021 Urea nitrogen [Mass/Vol] 23 mg/dL 7-18 [facility] Work Phone: Thin prep Papanicolaou smear with manual screeningon 10-01-2021 Thin prep Papanicolaou smear with manual screening 17 U/L 15-37 [facility] Work Phone: [phone] Thin prep Papanicolaou smear with manual screening 3 5-15 [facility] Work Phone: Thyroglobulin measurement by radioimmunoassay (JASSI)on 10-01-2021 Thyroglobulin Ab JASSI Qn (S) 6.2 ng/mL . [facility] Work Phone: Comment on above: This test was develo ped and its performance characteristicsdetermined by [employer]. It has not been cleared or approvedby the Food and Drug Administration.Reference Range:Pubertal Childrenand Adults: <40According to the National Academy of Clinical Biochemistry,the reference interval for Thyroglobulin (TG) should berelated to euthyroid patients and not for patients whounderwent thyroidectomy. TG reference intervals for thesepatients depend on the residual mass of the thyroid tissueleft after surgery. Establishing a post-operative baselineis recommended. The assay quantitation limit is 2.0 ng/mL. Vital Signs Date Time Vital Sign Value Performing Clinician Storm kovacs 07-03-2024 09:58-0500 Body height 172.[address] Dmitriy Hardy MD Work Phone: [facility] 07-03-2024 09:58-0500 Body mass index (BMI) [Ratio] 23.8 kg/m2 Dr. Dmitriy Hardy MD Work Phone: [facility] 07-03-2024 09:58-0500 Body temperature 98.1 [degF] Dr. Dmitriy Hardy MD Work Phone: [facility] 07-03-2024 09:58-0500 Body weight 70.[address] Dmitriy Hardy MD Work Phone: [facility] 07-03-2024 09:58-0500 Diastolic blood pressure 58 mm[Hg] Dr. Dmitriy Hardy MD Work Phone: [facility] 07-03-2024 09:58-0500 Heart rate 50 /min Dr. Dmitriy Hardy MD Work Phone: [facility] 07-03-2024 09:58-0500 Respiratory rate 16 /min Dr. Dmitriy Hardy MD Work Phone: [facility] 07-03-2024 09:58-0500 SaO2% (BldA) [Mass fraction] 96 % Dr. Dmitriy Hardy MD Work Phone: [facility] 07-03-2024 09:58-0500 Systolic blood pressure 120 mm[Hg] Dr. Dmitriy Hardy MD Work Phone: [facility] Encounters Encounter Date Encounter Type Care Provider Facility Start: 02-03-2025 ambulatory Dmitriy Botello y:[facility] Start: 12-30-2024 Encounter for other preprocedural examination [facility] Start: 12-30-2024 Encounter for preprocedural cardiovascular examination [facility] Start: 12-30-2024 Encounter for preprocedural respiratory examination Zina Petit [facility] Start: 12-29-2024 End: 12-29-2024 ambulatory ZINA PETIT MD Facility:[facility] Start: 12-29-2024 End: 12-29-2024 Patient encounter procedure ZIAN PETIT MD [facility] Start: 10-11-2024 End: 10-11-[address] Dmitriy Hardy MD Work Phone: [facility] Work Phone: Start: 10-11-2024 End: 10-11-[address] Dmitriy Hardy [facility] -[facility] Start: 10-11-2024 End: 10-11-2024 ambulatory Dmitriy Hardy Facility:[facility] Start: 07-03-2024 End: 07-03-2024 Patient encounter procedure Dmitriy BERMUDEZ -[facility] Work Phone: Start: 07-03-2024 End: 07-03-2024 ambulatory Dmitriy Hardy Facility:[facility] Start: 04-07-2024 End: 04-07-2024 ambulatory Dmitriy Hardy Facility:[facility] Start: 06-24-2023 End: 06-24-[address] [facility] Work Phone: Start: 06-24-2023 End: 06-24-2023 Patient encounter procedure [facility] Start: 04-03-2023 End: 04-03-2023 Patient encounter procedure [facility] Work Phone: Start: 01-20-2023 End: 01-20-[address] [facility] Work Phone: Start: 01-20-2023 End: 01-20-2023 Patient encounter procedure [facility] Start: 06-24-2022 End: 06-24-[address] [facility] Work Phone: Start: 06-24-2022 End: 06-24-2022 Patient encounter procedure [facility] Start: 04-03-2022 End: 04-03-[address] Dmitriy Hardy Work Phone: [facility] Work Phone: Start: 04-03-2022 End: 04-03-[address] [facility] Start: 02-27-2022 End: 02-27-[address] EULOGIO MONET DPM [facility] Start: 01-24-2022 Non-patient / Non-visit Dr. Manisha Hardy Work Phone: [facility] Start: 01-24-2022 End: 01-24-[address] Dmitriy Hardy Work Phone: [facility] Start: 12-25-2021 End: 12-25-2021 Patient encounter procedure [facility] Start: 10-08-2021 End: 10-08-[address] [facility] Start: 10-01-2021 End: 10-01-2021 Patient encounter procedure [facility] Procedures Date Procedure Procedure Detail Performing Clinician Start: 10-08-2021 Plain x-ray of wrist Immunizations Immunization Date Immunization Notes Care Provider Fa cility 10-01-2020 Covid (Moderna) [facility] 09-03-2020 Covid ([facility] [facility] Payers Date Payer Category Payer Self-pay [id number] 2024 Unknown [id number] 2022 Medicare [id number] 2022 Private Health Insurance [id number] 2003 Medicare [id number] 1940 Unknown [id number] Self-pay SELF PAY INSURANCE [id number] Unknown [id number] Unknown [id number] Unknown [id number] Social History Date Type Detail [facility] Work Phone: Start: 1940 Sex Assigned At Male A [facility] Tobacco smoking [facility] Work Phone: Start: 02-27-2022 End: 10-17-2024 Sex Male (finding) [facility] Evaluation note 07-03-2024 Note Date & Type Note Facility 07-03-2024 Evaluation note Diagnosis Onset Date Resolution URI (upper respiratory infection) acute July 03, 2 024 9:50am [facility] Work Phone: Evaluation + Plan note Note Date & Type Note Facility Evaluation + Plan note No data available for this section [facility] Evaluation note Note Date & Type Note Facility Evaluation note No assessment information availa ble [facility] Work Phone: Hospital Discharge instructions Note Date & Type Note Facility Hospital Discharge instructions No data available for this section [facility] Progress note Note Date & Type Note Facility Progress note No data available for this section [facility] Reason for referral (narrative) Note Date & Type Note Facility Reason for referral (narrative) No reason for referral information available [facility] Work Phone: Chief Complaint and Reason for Visit Chief Complaint BILATERAL WRIST PAIN Chief Complaint BILATERAL WRIST PAIN SOB Chief Complaint SOB Chief Complaint EORDER Chief Complaint Admit Date HEAD CONGESTION July 03, 2024 9:50am Reason for Visit Admit Date URI (upper respiratory infection) Decemb er 2023 9:50am Summary Purpose Family History No Family History Records Found No data available for this section No Family History Records FoundNo Family History Records Found Advance Directives No Advanced Directives Records FoundNo Advanced Directives Records FoundNo Advanced Directives Records Found Additional Source Comments Goals (unrecognized section and content) Goals may be documented in a n alternate sectionGoals may be documented in an alternate section No data available for this sectionGoals may be documented in an alternate sectionGoals may be documented in an alternate sectionGoals may be documented in an alternate sectionGoals may be documented in an alternate sectionGoals may be documented in an alternate section No data available for this section Care Team (unrecognized sect ion and content) Care Team Personnel Name: DMITRIY HARDY MD Member Role: Primary Care Physician Address: Address: [address] [place] [address]. [address] [place] [address]- [place] (unrecognized sect ion and content) No Status Records FoundNo Status Records FoundNo Status Records Found INFORMATION SOURCE (unrecogn ized section and content) DATE CREATED AUTHOR 03/02/2022 [facility] ([place]) DATE CREATED AUTHOR AUTHOR'S ORGANIZ ATION 12/31/2024 [facility] DATE CREATED AUTHOR AUTHOR'S ORGANIZ ATION 01/01/2025 [facility] Care Teams (unrecognized sec tion and content) Team Status: Active Member Role Status Dates Dr. Dmitriy Petit MD Family Provider Active Dr. Dmitriy Hardy MD Primary Care Provider Active Team Status: Inactive Member Role Status Dates Dr. Dmitriy Hardy MD Primary Care Provider, Attend ing Provider Active Team Status: Inactive Member Role Status Dates Dr. Dmitriy Hardy MD Primary Care Provider Active EMMIE FloodC Attending Provider Active Team Status: Inactive Member Role Status Dates Dr. Dmitriy Hardy MD Primary Care Provider Active Dr. Ashwin Moreland MD Attending Provider, Referring Prov ider Active Team Status: Inactive Member Role Status Dates Dr. Dmitriy Hardy MD Primary Care Provider Active Start: July 03, 2024 End: July 03, 2024 Dr. Dmitriy Hardy MD Referring Provider Active Start: July 03, 2024 End: July 03, 2024 AIDAN Barker NP Attending Provider Active S tart: July 03, 2024 End: July 03, 2024 Team Status: Inactive Member Role Status Dates Dr. Dmitriy Hardy MD Primary Care Provider Active Start: October 11, 2024 End: October 11, 2024 Dr. Dmitriy Hardy MD Attending Provider Active Start: October 11, 2024 End: October 11, 2024 Dr. Dmitriy Hardy MD Referring Provider Active Start: October 11, 2024 End: October 11, 2024 FOR RECORDS PERTAINING TO PATIENTS WHO ARE OR HAVE BEEN ENROLLED IN A CHEMICAL DEPENDENCY/SUBSTANCEABUSE PROGRAM, SOME INFORMATION MAY BE OMITTED. This clinical summary was aggregated from multiple sources. Caution should be exercised in using it in the provision of clinical care. This summary normalizes information from multiple sources, and as a consequence, information in this document may materially change the coding, format and clinical context of patient data. In addition, data may be omitted in some cases. CLINICAL DECISIONS SHOULD BE BASED ON THE PRIMARY CLINICAL RECORDS. [employer] provides no warranty or guarantee of the accuracy or completeness of information in this document.
[2025-01-13 10:40] LABS: Hematocrit 39.0 % (40-54); Hemoglobin 12.7 g/dL (13.0-16.5); Immature Granulocytes Count 0.030 X10^3/uL (0.0-0.0); Mean Corp Hgb Conc 32.6 g/dL (32-36); Mean Corpuscular Volume 93.3 fL (80-94); Mean Platelet Vol. 11.1 fl (6.2-12.0); NRBC Flagged by Analyzer 0 % (0-5); Platelet Count 172 K/mm3 (150-450); RBC Distribution Width CV 13.0 % (11.6-14.6); RBC Distribution Width SD 44.3 fl (35.1-43.9); Red Blood Count 4.18 M/mm3 (4.6-6.2); White Blood Count 6.7 K/mm3 (4.4-11.0)
[2025-01-13 11:31] LABS: Albumin, Serum 4.1 g/dL (3.4-4.8); Anion Gap 9 (5-15); BUN 27 mg/dL (4-19); BUN/Creat Ratio 22.8 RATIO (10-20); Calcium,Total 9.1 mg/dL (7.6-11.0); Carbon Dioxide 24.8 mmol/L (21.0-32.0); Chloride 105 mmol/L (98-108); Glucose 95 mg/dL (70-99); Magnesium 2.2 mg/dL (1.5-2.2); Potassium 4.2 mmol/L (3.3-5.1)
== END | disposition home or self-care (01) ==
LOC: MTLAB 07:34
PROVIDERS: PCP Family Medicine; Referring Provider Orthopaedic Surgery; Visit Provider Orthopaedic Surgery
DX: Z01.810 Encounter for preprocedural cardiovascular examination (principal); R00.1 Bradycardia, unspecified; Z01.811 Encounter for preprocedural respiratory examination; Z01.818 Encounter for other preprocedural examination
CPT/HCPCS: 36415; 80048; 82040; 83735; 85025

== ENCOUNTER → 2025-01-18 | Outpatient (CLI) | payer MEDICARE, OTHER, SELFPAY ==
[2025-01-18 16:53] LABS: T4 Total, Thyroxin 6.2 ug/dL (4.5-12.1)
== END | disposition home or self-care (01) ==
LOC: LAB 14:52
PROVIDERS: PCP Family Medicine; Referring Provider Internal Medicine Cardiovascular Disease; Visit Provider Internal Medicine Cardiovascular Disease
DX: R00.1 Bradycardia, unspecified (principal)
CPT/HCPCS: 36415; 84436; 84443

== ENCOUNTER → 2025-01-23 | Outpatient (CLI) | payer MEDICARE, OTHER, SELFPAY ==
--- NOTE | 2025-01-23 10:54 | ECHOD_ITS ---
Reason For Study Reason For Study: SHORTNESS OF BREATH Procedure This was a 2D Doppler, Color Flow transthoracic echocardiogram. Exam performed in department. Left Ventricle Normal LV size. Left ventricular systolic function is normal. The left ventricular ejection fraction is 60 %. Stage 1 diastolic dysfunction. No regional wall motion abnormalities noted. Right Ventricle Normal RV size. Normal systolic function. Atria Normal left atrium. Normal right atrium. Mitral Valve Normal mitral valve. Tricuspid Valve Normal tricuspid valve. Mild tricuspid valve insufficiency. Pulmonary artery systolic pressure is 22 mmHg. Aortic Valve Trisinus/trileaflet aortic valve. Mild focal aortic valve calcification. Great Vessels Normal aortic root. The pulmonary artery is normal size. Inferior vena cava collapse with respiration. Pericardium/Pleural No pericardial effusion. MMode/2D Measurements & Calculations LVIDd: 4.8 cm IVSd: 0.99 cm LVOT diam: 2.3 cm LVIDs: 3.0 cm LVPWd: 0.97 cm LVOT area: 4.1 cm2 RVDd: 4.5 cm FS: 38.8 % asc Aorta Diam: 3.7 cm LAV(MOD-bp): 42.5 ml LVAd ap4: 30.6 cm2 LAV(MOD-bp) Indexed: 23.2 ml/m2 LVLd ap4: 8.2 cm LAV(MOD-sp2): 53.4 ml EDV(MOD-sp4): 92.9 ml LAV(MOD-sp4): 33.8 ml EDV(sp4-el): 97.1 ml LVAs ap4: 17.0 cm2 LVLs ap4: 6.9 cm ESV(MOD-sp4): 34.2 ml ESV(sp4-el): 35.6 ml EF(MOD-sp4): 63.2 % EF(sp4-el): 63.3 % SV(MOD-sp4): 58.8 ml SV(MOD-sp2): 49.4 ml LVAd ap2: 27.6 cm2 LVLd ap2: 7.8 cm SI(MOD-sp4): 32.0 ml/m2 SI(MOD-sp2): 26.9 ml/m2 EDV(MOD-sp2): 82.8 ml EDV(sp2-el): 82.5 ml LVAs ap2: 16.2 cm2 LVLs ap2: 6.7 cm ESV(MOD-sp2): 33.4 ml ESV(sp2-el): 33.3 ml EF(MOD-sp2): 59.6 % SV(sp4-el): 61.5 ml Ao sinus diam: 3.[address] Junction: 2.5 cm LA A4 area: 14.8 cm2 LA dimension(2D): 3.8 cm RA A4 area: 16.4 cm2 TAPSE: 2.8 cm Time Measurements MV dec time: 0.24 sec Doppler Measurements & Calculations MV E max everett: 52.0 cm/sec Lat Peak E' Everett: 7.4 cm/sec Med Peak E' Everett: 6.7 cm/sec MV A max everett: 68.3 cm/sec E/E' lat: 7.0 E/E' med: 7.7 MV E/A: 0.76 Ao V2 max: 149.7 cm/sec LV V1 max: 110.4 cm/sec MV dec slope: 219.4 cm/sec2 Ao max P.0 mmHg LV V1 max P.9 mmHg Ao V2 mean: 102.3 cm/sec LV V1 mean P.4 mmHg Ao mean P.6 mmHg LV V1 mean: 72.3 cm/sec Ao V2 VTI: 35.3 cm LV V1 VTI: 27.0 cm AV (velocity ratio): 0.77 RODRIGO(I,D): 3.1 cm2 RODRIGO(V,D): 3.0 cm2 SV(LVOT): 109.8 ml PA V2 max: 71.8 cm/sec TR max everett: 213.5 cm/sec TR max P.2 mmHg ECHO/Echo Complete Interpretation Summary Normal LV size. Left ventricular systolic function is normal. The left ventricular ejection fraction is 60 %. Stage 1 diastolic dysfunction. Mild tricuspid valve insufficiency. Mild focal aortic valve calcification. Ordering Physician: Kain Lopez Referring Physician: Kain Lopez Performed By: Bernadette Montoya RDCS
--- NOTE | 2025-01-23 17:42 | STRESSREP ---
Stress Test Report Exercise stress test. 84-year-old male with chest pain Stress protocol: Resting EKG demonstrates sinus bradycardia with a rate of 45 bpm resting blood pressure is 07/27/1975 mmHg. The patient exercised according to the regular Rodger protocol for a total duration of 3 minutes attaining a maximum heart rate of 67 bpm which was 50% of maximum predicted heart rate; the maximum workload was 4.6 metabolic equivalents. At rest there were no ST or T wave changes noted to suggest ischemia and at peak exercise upsloping ST changes only were noted which did not meet the criteria for ischemia. No clinical angina was noted the test was terminated due to the target heart rate being achieved/fatigue. The peak blood pressure was 146/70 mmHg. Rate-pressure product was 8000 Conclusion: Stress test with no EKG changes suggestive of ischemia at a low workload. No chest pain noted. Mild shortness of breath present. Blunted heart rate present with evidence of chronotropic incompetence..
== END | disposition home or self-care (01) ==
LOC: CVS 10:48
PROVIDERS: PCP Family Medicine; Referring Provider Family Medicine; Visit Provider Family Medicine
DX: R06.02 Shortness of breath (principal); R00.1 Bradycardia, unspecified
CPT/HCPCS: 93017; 93306

== ENCOUNTER → 2025-02-15 | Outpatient (CLI) | payer MEDICARE, OTHER, SELFPAY ==
--- NOTE | 2025-02-15 10:55 | VDLE_ITS ---
Reason For Study Reason For Study: RLE Swelling RIGHT GSV is normal. CFV is compressible, spontaneous, phasic, competent and demonstrates normal augmentation. FV is compressible, spontaneous, phasic, competent and demonstrates normal augmentation. POP V is compressible, spontaneous, phasic, competent and demonstrates normal augmentation. T/P Trunk is compressible. PTV is compressible. RT PerV is compressible. Procedure This is a venous duplex using B-mode, color flow and spectral Doppler. Exam performed in department. The exam was diagnostic. A preliminary report was called and/or faxed to [employer] [facility]. VL/Venous Duplex US, Unilateral Interpretation Summary Deep veins of the right lower extremity are patent and compressible segmentally . There is no evidence of right lower extremity deep vein thrombosis. Valvular competence appears intact within the p roximal deep venous system on the right . The right great saphenous vein appears patent and compressible segmentally. Ordering Physician: Raysa Bob Referring Physician: Kain Lopez Performed By: Griffin Bauer RVT
--- OUTSIDE RECORDS SUMMARY | 2025-02-15 19:24 | XMS RPT_ITS | CCD ---
Author Organization [facility] Team Providers Care Dry Color Tester Name Role Phone Dr. Dmitriy Hardy Primary Care Provider Dr. Jose E Gary Attending Provider HAYLEY CASTORENA, DMITRIY Primary Care Physician Dr. Dmitriy Hardy MD Primary Care Provider Dr. Dmtiriy Hardy MD Referring Provider [phone] Nathaniel DOORMAKER-CDmitriy Attending Provider Dr. Dmitriy Hardy MD Attending Provider ZINA PETIT MD Attending Unavailable DMITRIY HARDY MD Primary Care Unavailable Dr. Dmitriy Hardy MD Primary Care Provider Dr. Dmitriy Hardy MD Referring Provider [phone] Dr. Zina Petit MD Attending Provider [phone] Zina Petit MD Referring Provider [phone] Jose E Gary MD Attending Provider [phone] Dr. Jose E Gary MD Referring Provider [phone] Dmitriy Hardy Attending Unavailable Dmitriy Hardy Referring Unavailable Dmitriy Hardy Primary Care Unavailable Dmitriy Hardy Attending Unavailable Dmitriy Hardy Referring Unavailable Dmitriy Hardy Primary Care Unavailable Dmitriy Hardy Referring Unavailable Dmitriy Hardy Primary Care Unavailable Dmitriy Armstrong Attending Unavailable Jose E Gary Attending Unavailable Dmitriy Hardy Primary Care Unavailable Jose E Gary Attending Unavailable Dmitriy Hardy Referring Unavailable Dmitriy Hardy Primary Care Unavailable Dmitriy Hardy Attending Unavailable Dmitriy Hardy Referring Unavailable Dmitriy Hardy Primary Care Unavailable Zina Petit Referring Unavailable Dmitriy Hardy Primary Care Unavailable Zina Petit Attending Unavailable Jose E Gary Attending Unavailable Jose E Gary Referring Unavailable Dmitriy Hardy Primary Care Unavailable Allergies Allergy Classification Reported Allergen(s) Allergy Type Date of Onset Reaction(s) Facility (4 sources) Meperidine Drug Allergy 01-18-2025 Vomiting [facility] (1 source) Meperidine Drug Allergy 01-18-2025 [facility] Repository Medications Current Medications Medication Drug Class(es) Dates Sig (Normalized) Sig (Original) glucosamine sulfate 500 mg oral tablet (4 sources) Start: 01-17-2025 take 1 tablet by mouth once daily Glucosamine Sulfate (Glucosamine) 500 mg tablet Active 500 mg PO daily January 17, 2025 12:00am administer with a meal Lactobacillus Combination No.9 (Adult 50 Plus Probiotic) 4 billion cell capsule (4 sources) Start: 01-17-2025 take 4 capsules by mouth once daily Lactobacillus Combination No.9 (Adult 50 Plus Probiotic) 4 billion cell capsule Active 4000 NMA PO daily January 17, 2025 12:00am administer with a meal latanoprost 0.05 mg/ml ophthalmic solution (4 sources) Prostaglandin Analog Start: 01-17-2025 Latanoprost 0.005 % drops Active 1 NMA OPHTHALMIC EVERY EVENING January 17, 2025 12:00am levothyroxine sodium 0.075 mg oral tablet (4 sources) l-Thyroxine Start: 01-17-2025 take 1 tablet by mouth once daily Levothyroxine 75 mcg tablet Active 75 ug PO daily January 17, 2025 12:00am polyethylene glycol 3350 22941 mg powder for oral solution (4 sources) Osmotic Laxative Start: 01-17-2025 Polyethylene Glycol 3350 (Miralax) 17 gram/dose powder Active 4 g PO daily January 17, 2025 12:00am rosuvastatin calcium 10 mg oral tablet (4 sources) HMG-CoA Reductase Inhibitor Start: 01-17-2025 take 1 tablet by mouth once daily Rosuvastatin 10 mg tablet Active 10 mg PO daily January 17, 2025 12:00am Vitamins A,C,I-Ntck-Aeffoy (Preservision Areds) 4,296 mcg-226 mg-90 mg capsule (4 sources) Start: 01-17-2025 Vitamins A,C,M-Wyqf-Eiyuvw (Preservision Areds) 4,296 mcg-226 mg-90 mg capsule Active 1 NMA PO TWICE A DAY January 17, 2025 12:00am Completed/Discontinued Medications Medication Drug Class(es) Dates Sig (Normalized) Sig (Original) azithromycin 250 mg oral tablet (5 sources) Macrolide Antimicrobial Start: 07-03-2024 End: 01-17-2025 Azithromycin (Zithromax Z-Rai) 250 mg tablet Discontinued 0 PO .COMPLEX 6 0 July 03, 2024 1:00am January 17, 2025 8:10am For 250 mg dose pack: take 500 mg today (day 1), then 250 mg for 4 days (days 2-5) PO Problems Active Problems Problem Classification Problem Date Documented Da te Episodic/Chronic Cardiac dysrhythmias (8 sources) Bradycardia; Translations: [Bradycardia, unspecified] Onset: 01-23-2025 01-17-2025 Episodic Disorders of lipid metabolism (1 source) Pure hypercholesterole moreno, unspecified; Translations: [Pure hypercholesterole moreno, unspecified] Onset: 06-13-2024 Chronic Other lower respiratory disease (4 sources) Dyspnea on exertion; Translations: [Shortness of breath] 01-17-2025 Episodic Other lower respiratory disease (1 source) Shortness of breath; Translations: [Shortness of breath] Onset: 01-27-2025 Episodic Thyroid disorders (1 source) Other specified hypothyroidism; Translations: [Other specified hypothyroidism] Onset: 10-17-2024 Chronic Past or Other Problems Problem Classification Problem Date Documented Da te Episodic/Chronic Other upper respiratory infections (7 sources) Upper respiratory infection; Translations: [Acute upper respiratory infection, unspecified] Onset: 07-03-2024 07-03-2024 Episodic Results Test Name Value Interpretation Reference Range Facility Cardiovascular stress test r eportOrdered By: Jose E Gary on 01-23-2025 Study report [facility] Cardiovascular Services [address] [place] [address] MR#: [id number] Acct: [id number] Name: SP BABCOCK Rep #: [id number] : 1940 84 From: Jose E Gary MD Primary Care: Dr. Dmitriy Hardy MD Sta tus: REG CLI Referring Dr: Dmitriy Hardy MD Sex: M C Stress Test Report Exercise stress test. 84-year-old male with chest pain Stress protocol: Resting EKG demonstrates sinus bradycardia with a rate of 45 bpm resting blood pressure is 07/27/1975 mmHg. The patient exercised according to the regular Rodger protocol for a total duration of 3 minutes attaining a maximum heart rate of 67 bpm which was 50% of maximum predicted heart rate; the maximum workload was 4.6 metabolic equivalents. At rest there were no ST or T wave changes notedto suggest ischemia and at peak exercise upsloping ST changes only were noted which did not meet the criteria for ischemia. No clinical angina was noted the test was terminated due to the target heart rate being achieved/fatigue. The peak blood pressure was 146/70 mmHg. Rate-pressure product was 8000 Conclusion: Stress test with no EKG changes suggestive of ischemia at a low workload. No chest pain noted. Mild shortness of breath present. Blunted heart rate present with evidence of chronotropic incompetence.. 01/23/251744 Date _ Jose E Gary MD CC: Dr. Dmitriy Hardy MD ~ Date Dictated: 01/23/251741 Date Transcribed: 01/23/251741 Enterprise Application Architect: [place] Signed [facility] Work Phone: Echo [facility] 01-23-2025 Echo Complete [facility] Cardiovascular Services [address] [place] [address] Echo Complete 01/23/25 1058 MR#: [id number] Acct: [id number] Name: SP BABCOCK Rep #: [id number] : 1940 84 From: Jose E Gary MD Attending Dr: Dr. Dmitriy Hardy MD Status: R EG CLI Ordering Dr: Dmitriy Hardy MD Date: 01/23/25 [facility] Sex[facility] M C Admitted: Reason For Study Reason For Study: SHORTNESS OF BREATH Procedure This was a 2D Doppler, Color Flow transthoracic echocardiogram. Exam performed in department. Left Ventricle Normal LV size. Left ventricular systolic function is normal. The left ventricular ejection fraction is 60 %. Stage 1 diastolic dysfunction. No regional wall motion abnormalities noted. Right Ventricle Normal RV size. Normal systolic function. Atria Normal left atrium. Normal right atrium. Mitral Valve Normal mitral valve. Tricuspid Valve Normal tricuspid valve. Mild tricuspid valve insufficiency. Pulmonary artery systolic pressure is 22 mmHg. Aortic Valve Trisinus/trileaflet aortic valve. Mild focal aortic valve calcification. Great Vessels Normal aortic root. The pulmonary artery is normal size. Inferior vena cava collapse with respiration. Pericardium/Pleural No pericardial effusion. MMode/2D Measurements Calculations LVIDd: 4.8 cm IVSd: 0.99 cm LVOT diam: 2.3 cm LVIDs: 3.0 cm LVPWd: 0.97 cm LVOT area: 4.1 cm2 RVDd: 4.5 cm FS: 38.8 % asc Aorta Diam: 3.7 cm LAV(MOD-bp): 42.5 ml LVAd ap4: 30.6 cm2 LAV(MOD-bp) Indexed: 23.2 ml/m2 LVLd ap4: 8.2 cm LAV(MOD-sp2): 53.4 ml EDV(MOD-sp4): 92.9 ml LAV(MOD-sp4): 33.8 ml EDV(sp4-el): 97.1 ml LVAs ap4: 17.0 cm2 LVLs ap4: 6.9 cm ESV(MOD-sp4): 34.2 ml ESV(sp4-el): 35.6 ml EF(MOD-sp4): 63.2 % EF(sp4-el): 63.3 % SV(MOD-sp4): 58.8 ml SV(MOD-sp2): 49.4 ml LVAd ap2: 27.6 cm2 LVLd ap2: 7.8 cm SI(MOD-sp4): 32.0 ml/m2 SI(MOD-sp2): 26.9 ml/m2 EDV(MOD-sp2): 82.8 ml EDV(sp2-el): 82.5 ml LVAs ap2: 16.2 cm2 LVLs ap2: 6.7 cm ESV(MOD-sp2): 33.4 ml ESV(sp2-el): 33.3 ml EF(MOD-sp2): 59.6 % SV(sp4-el): 61.5 ml Ao sinus diam: 3.[address] Junction: 2.5 cm LA A4 area: 14.8 cm2 LA dimension(2D): 3.8 cm RA A4 area: 16.4 cm2 TAPSE: 2.8 cm Time Measurements MV dec time: 0.24 sec Doppler Measurements Calculations MV E max everett: 52.0 cm/sec Lat Peak E' Everett: 7.4 cm/sec Med Peak E' Everett: 6.7 cm/sec MV A max everett: 68.3 cm/sec E/E' lat: 7.0 E/E' med: 7.7 MV E/A: 0.76 Ao V2 max: 149.7 cm/sec LV V1 max: 110.4 cm/sec MV dec slope: 219.4 cm/sec2 Ao max P.0 mmHg LV V1 max P.9 mmHg Ao V2 mean: 102.3 cm/sec LV V1 mean P.4 mmHg Ao mean P.6 mmHg LV V1 mean: 72.3 cm/sec Ao V2 VTI: 35.3 cm LV V1 VTI: 27.0 cm AV (velocity ratio): 0.77 RODRIGO(I,D): 3.1 cm2 RODRIGO(V,D): 3.0 cm2 SV(LVOT): 109.8 ml PA V2 max: 71.8 cm/sec TR max everett: 213.5 cm/sec TR max P.2 mmHg ECHO/Echo Complete Interpretation Summary Normal LV size. Left ventricular systolic function is normal. The left ventricular ejection fraction is 60 %. Stage 1 diastolic dysfunction. Mild tricuspid valve insufficiency. Mild focal aortic valve calcification. Ordering Physician: Dmitriy Hardy Referring Physician: Dmitriy Hardy Performed By: Bernadette Montoya RDCS 01/23/25 1436 Date Jose E Gary MD CC: Dr. Dmitriy Hardy MD Date Dictated: 01/23/25 105 Date Transcribed: 01/23/25 143 Enterprise Application Architect: Signed Normal [facility] Echocardiogram study reportO rdered By: Jose E Gary on 01-23-2025 Study report [facility] Cardiovascular Services [address] [place] [address] Echo Complete 01/23/25 1058 MR#: [id number] Acct: [id number] Name: SP BABCOCK Rep #:[id number] : 1940 84 From: Jose E Wing Attending Dr: Dr. Dmitriy Hardy MD Status: REG CLI Ordering Dr: Dmitriy Hardy MD Date: 01/23/25 [facility] Sex: M C Admitted: Reason For Study Reason For Study: SHORTNESS OF BREATH Procedure This was a 2D Doppler, Color Flow transthoracic echocardiogram. Exam performed in department. Left Ventricle Normal LV size. Left ventricular systolic function is normal. The left ventricular ejection fraction is 60 %. Stage 1 diastolic dysfunction. No regional wall motion abnormalities noted. Right Ventricle Normal RV size. Normal systolic function. Atria Normal left atrium. Normal right atrium. Mitral Valve Normal mitral valve. Tricuspid Valve Normal tricuspid valve. Mild tricuspid valve insufficiency. Pulmonary artery systolic pressure is 22 mmHg. Aortic Valve Trisinus/trileaflet aortic valve. Mild focal aortic valve calcification. Great Vessels Normal aortic root. The pulmonary artery is normal size. Inferior vena cava collapse with respiration. Pericardium/Pleural No pericardial effusion. MMode/2D Measurements & Calculations LVIDd: 4.8 cm IVSd: 0.99 cm LVOT diam: 2.3 cm LVIDs: 3.0 cm LVPWd: 0.97 cm LVOT area: 4.1 cm2 RVDd: 4.5 cm FS: 38.8 % asc Aorta Diam: 3.7 cm LAV(MOD-bp): 42.5 ml LVAd ap4: 30.6 cm2 LAV(MOD-bp) Indexed: 23.2 ml/m2 LVLd ap4: 8.2 cm LAV(MOD-sp2): 53.4 ml EDV(MOD-sp4): 92.9 ml LAV(MOD-sp4): 33.8 ml EDV(sp4-el): 97.1 ml LVAs ap4: 17.0 cm2 LVLs ap4: 6.9 cm ESV(MOD-sp4): 34.2 ml ESV(sp4-el): 35.6 ml EF(MOD-sp4): 63.2 % EF(sp4-el): 63.3 % SV(MOD-sp4): 58.8 ml SV(MOD-sp2): 49.4 ml LVAd ap2: 27.6 cm2 LVLd ap2: 7.8 cm SI(MOD-sp4): 32.0 ml/m2 SI(MOD-sp2): 26.9 ml/m2 EDV(MOD-sp2): 82.8 ml EDV(sp2-el): 82.5 ml LVAs ap2: 16.2 cm2 LVLs ap2: 6.7 cm ESV(MOD-sp2): 33.4 ml ESV(sp2-el): 33.3 ml EF(MOD-sp2): 59.6 % SV(sp4-el): 61.5 ml Ao sinus diam: 3.[address] Junction: 2.5 cm LA A4 area: 14.8 cm2 LA dimension(2D): 3.8 cm RA A4 area: 16.4 cm2 TAPSE: 2.8 cm Time Measurements MV dec time: 0.24 sec Doppler Measurements & Calculations MV E max everett: 52.0 cm/sec Lat Peak E' Everett: 7.4 cm/sec Med Peak E' Everett: 6.7 cm/sec MV A max everett: 68.3 cm/sec E/E' lat: 7.0 E/E' med: 7.7 MV E/A: 0.76 __ Ao V2 max: 149.7 cm/sec LV V1 max: 110.4 cm/sec MV dec slope: 219.4 cm/sec2 Ao max P.0 mmHg LV V1 max P.9 mmHg Ao V2 mean: 102.3 cm/sec LV V1 mean P.4 mmHg Ao mean P.6 mmHg LV V1 mean: 72.3 cm/sec Ao V2 VTI: 35.3 cm LV V1 VTI: 27.0 cm AV (velocity ratio): 0.77 RODRIGO(I,D): 3.1 cm2 RODRIGO(V,D): 3.0 cm2 SV(LVOT): 109.8 ml PA V2 max: 71.8 cm/sec TR max everett: 213.5 cm/sec TR max P.2 mmHg ECHO/Echo Complete Interpretation Summary Normal LV size. Left ventricular systolic function is normal. The left ventricular ejection fraction is 60 %. Stage 1 diastolic dysfunction. Mild tricuspid valve insufficiency. Mild focal aortic valve calcification. Ordering Physician: Dmitriy Hardy Referring Physician: Dmitriy Hardy Performed By: Bernadette Montoya RDCS 01/23/25 1436 Date _ Jose E Gary MD CC: Dr. Dmitriy Hardy MD ~ Date Dictated: 01/23/25 1058 Date Transcribed: 01/23/25 1436 Enterprise Application Architect: Signed [facility] Work Phone: Stress Reporton 01-23-2025 Stress Report [facility] Cardiovascular Services [address] [place] [id number] MR#: [id number] Acct: [id number] Name: SP BABCOCK Rep #: [id number] : 1940 84 From: Jose E Gary MD Primary Care: Dr. Dmitriy Hardy MD Status: REG I Referring Dr: Dmitriy Hardy MD Sex: M C Stress Test Report Exercise stress test. 84-year-old male with chest pain Stress protocol: Resting EKG demonstrates sinus bradycardia with a rate of 45 bpm resting blood pressure is 07/27/1975 mmHg. The patient exercised according to the regular Rodger protocol for a total duration of 3 minutes attaining a maximum heart rate of 67 bpm which was 50% of maximum predicted heart rate; the maximum workload was 4.6 metabolic equivalents. At rest there were no ST or T wave changes noted to suggest ischemia and at peak exercise upsloping ST changes only were noted which did not meet the criteria for ischemia. No clinical angina was noted the test was terminated due to the target heart rate being achieved/fatigue. The peak blood pressure was 146/70 mmHg. Rate-pressure product was 8000 Conclusion: Stress test with no EKG changes suggestive of ischemia at a low workload. No chest pain noted. Mild shortness of breath present. Blunted heart rate present with evidence of chronotropic incompetence.. 01/23/251744 Date Jose E Gary MD CC: Dr. Dmitriy Hardy MD Date Dictated: 01/23/251741 Date Transcribed: 01/23/251741 Enterprise Application Architect: [place] Signed Normal [facility] Cardiology Visit Reporton Cardiology Visit Report [facility] [address] [place] [address]. [address] [place] [address] OFFICE VISIT Date of Service: 01/18/25 MR#: [id number] Acct: [id number] Name: SP ABBCOCK Rep #: [id number] : 1940 Provider: Dr. Jose E Gary MD Age/Sex: 84/M [place] [facility] [place] Status: Signed HPI HPI History of Present Illness Details: Pleasant 84-year-old man who is here for knee replacement surgery scheduled for February. He is here as preemptive preoperative evaluation he was noted to have a low heart rate on an electrocardiogram. He denies any chest pain or shortness of breath or paroxysmal nocturnal dyspnea pedal edema he has had no neck arm or jaw discomfort to suggest angina. He did have a previous echocardiogram performed in January 2022 demonstrating an ejection fraction of 55% with stage I diastolic dysfunction. His physical exam is unremarkable his laboratory tests are normal TSH was not performed his electrocardiogram demonstrates sinus bradycardia with a rate of 43 bpm. Intake Vital Signs 07/03/24 09:58 01/18/25 13:52 Height 5 ft 8 in 5 ft 8 in Weight: 156 lb 6 oz 154 lb BMI 23.8 23.4 BP 120/58 L 128/69 H Blood Pressure Location Lt brachial Lt brachial Position Sitting Sitting Respiration 16 16 Pulse 50 L 47 L Pulse Source NIBP Monitor Temp 98.1 F Pulse Oximetry (%) 96 Oxygen Delivery Method room air Intake Visit Reasons: BRADYCARDIA/SURG CLEARANCE (PEDRITOINKHANG) Crime Lab Analyst Required: No Accompanied by: Significant Other Is patient in pain?: No Allergies meperidine (From Demerol) Adverse Reaction (Intermediate, Verified 01/18/25 14:10) Vomiting Medications ???Medication ???Instructions ???Recorded ???Confirmed ???Type glucosamine sulfate 500 mg tablet 500 mg PO QDAY 01/17/25 01/18/25 History (Glucosamine) lactobacillus combination no.9 4 4,000 mmu cells PO QDAY 01/17/25 0 01/18/25 History billion cell capsule (Adult 50 Plus Probiotic) latanoprost 0.005 % eye drops 1 drp ophthalmic (eye) QPM 5 01/18/25 History levothyroxine 75 mcg tablet 75 mcg PO QDAY 01/17/25 01/18/25 H istory polyethylene glycol 3350 17 4 g PO QDAY 01/17/25 01/18/25 Hist ory gram/dose oral powder (Miralax) rosuvastatin 10 mg tablet 10 mg PO QDAY 01/17/25 01/18/25 Hi story vitamins A,C,U-wpmx-korktm 4,296 1 cap PO BID 01/17/25 01/18/25 His tory mcg-226 mg-90 mg capsule (PreserVision AREDS) Have you fallen in the past year?: No PFSH Medical History SOB (shortness of breath) on exertion Encounter for pre-operative examination Bradycardia Surgical History Hx laparoscopic cholecystectomy Hx of tonsillectomy Hx of vasectomy Family History Father Heart disease Leukemia Mother Dementia Social History Smoking Status: Former smoker alcohol intake: never substance use type: does not use ROS Const Const: Positive for fatigue (decreased stamina); Negative for weakness, headache(s), daytime sleepiness or difficulty sleeping ENT ENT: Negative for headache(s), dizziness or Nosebleed/epistaxis Cardio Chest Pain: No Palpitations: No Edema: None Resp Respiratory: Negative for SOB with activity, SOB at rest, SOB orthopnea SOB lying down or Cough GI GI: Negative nausea, vomiting or heartburn Neuro Neuro: Negative for dizziness, lightheadedness, near syncope, headache(s) or weakness Endo Endo: Positive for fatigue (decreased stamina) Cardiology Exam Const Appearance: cooperative, healthy appearing, no acute distress, well developed and well groomed Nutritional Appearance: average body habitus and well nourished Orientation: alert, awake and oriented x3 Head Head: normal to inspection, normocephalic and atraumatic Ears: hearing grossly normal bilaterally and external ears normal Nose: external nose normal, nares normal, nasal mucous membranes and turbinates normal, septum normal and no nasal discharge Face and Sinus: face symmetric Mouth: oral mucosae normal, tongue normal, oropharynx normal and moist mucous membranes Teeth and gingiva: dentition normal Throat: posterior oropharynx normal, tonsils normal and uvula midline Eyes General: appearance normal, both eyes and all related structures Eyelids: eyelids normal Conjunctivae: conjunctivae normal Pupils: PERRL, normal by confrontation and accommodation normal EOM: EOM intact bilaterally Neck Neck: normal visual inspection, trachea midline and no JVD JVD: +5 Carotids: normal carotid upstroke and bounding pulses Chest Chest inspection: normal inspection of the chest, symmetric chest movemen (more content not included)... Normal [facility] T4 Total, Thyroxinon 025 T4 [Mass/Vol] 6.2 ug/dL Normal 4.5-12.1 [facility] Comment on above: Performed By: #### L 501.9310, L501.9520 ####[facility] [id number] [place], [address] TSH DL <= 0.005 mIU/L QnOrde red By: Jose E Gary on 01-18-2025 TSH Qn 2.400 uIU/mL 0.300-4.20 0 [facility] Thyroid Stim Hormone (TSH)on 01-18-2025 TSH 2.400 uIU/mL Normal 0.300-4.20 0 [facility] Comment on above: Performed By: #### L 501.9310, L501.9500 ####[facility] [id number] [place], [address] ThyroxineOrdered By: Jose E O fori on 01-18-2025 T4 [Mass/Vol] 6.2 ug/dL 4.5-12.1 [facility] Absolute lymphocyte countOrd ered By: Zina Petit on 01-13-2025 Lymphocytes Auto (Unsp spec) [#/Vol] 1.23 10*3/uL 0.83-4.51 [facility] Absolute neutrophil countOrd ered By: Zina Petit on 01-13-2025 Neutrophils (Bld) [#/Vol] 4.4 10*3/uL 2.0-7.7 [facility] Albumin, Serumon 01-13-2025 Albumin [Mass/Vol] 4.1 g/dL Normal 3.4-4.8 [facility] Comment on above: Performed By: #### L 500.2500, L501.1800, L100.0100, L501.5200 #### [facility] [address] [place], [address] Anion gap in Serum or Plasma Ordered By: Zina Petit on 01-13-2025 Anion gap [Moles/Vol] 9 mmol/L 5-15 [facility] Automated lymphocyte count a s percentage of total leukocytesOrdered By: Zina Petit on 01-13-2025 Lymphocytes/100 WBC Auto (Unsp spec) 18.4 % Low 19-41 [facility] BUN/creatinine ratioOrdered By: Zina Petit on 01-13-2025 Urea nitrogen/Creatinine [Mass ratio] 22.8 mg/mg High 10-20 [facility] Basic Metabolic Profile (BMP )on 01-13-2025 BUN/CRE 22.8 RATIO High - [facility] Comment on above: Performed By: #### L 500.2500, L501.1800, L100.0100, L501.5200 #### [facility] [address] [place], [address] Calcium [Mass/Vol] 9.1 mg/dL Normal 7.6-11.0 [facility] Comment on above: Performed By: #### L 500.2500, L501.1800, L100.0100, L501.5200 #### [facility] [address] [place], [address] Chloride [Moles/Vol] 105 mmol/L Normal 98-108 [facility] Comment on above: Performed By: #### L 500.2500, L501.1800, L100.0100, L501.5200 #### [facility] [address] [place], [address] CO2 [Moles/Vol] 24.8 mmol/L Normal 21.0-32.0 [facility] Comment on above: Performed By: #### L 500.2500, L501.1800, L100.0100, L501.5200 #### [facility] [address] [place], [address] Creatinine [Mass/Vol] 1.19 mg/dL Normal 0.70-1.20 [facility] Comment on above: Performed By: #### L 500.2500, L501.1800, L100.0100, L501.5200 #### [facility] [address] [place], [address] GAP 9 Normal 5-15 [facility] Comment on above: Performed By: #### L 500.2500, L501.1800, L100.0100, L501.5200 #### [facility] [address] [place], [address] GFR/1.73 sq M.predicted among non-blacks MDRD (S/P/Bld) [Vol rate/Area] 59 mL/min/{1.73_m2} Low >60 [facility] Comment on above: Result Comment: mL/m in/1.73m2 CKD-EPI Creatinine Equation (2020) Performed By: #### L 500.2500, L501.1800, L100.0100, L501.5200 #### [facility] [address] [place], [address] Glucose [Mass/Vol] 95 mg/dL Normal 70-99 [facility] Comment on above: Performed By: #### L 500.2500, L501.1800, L100.0100, L501.5200 #### [facility] [address] [place], [address] Potassium [Moles/Vol] 4.2 mmol/L Normal 3.3-5.1 [facility] Comment on above: Performed By: #### L 500.2500, L501.1800, L100.0100, L501.5200 #### [facility] [address] [place], [address] Sodium [Moles/Vol] 139 mmol/L Normal 133-145 [facility] Comment on above: Performed By: #### L 500.2500, L501.1800, L100.0100, L501.5200 #### [facility] [address] [place], [address] Urea nitrogen [Mass/Vol] 27 mg/dL High 4-19 [facility] Comment on above: Performed By: #### L 500.2500, L501.1800, L100.0100, L501.5200 #### [facility] [address] [place], [address] Basophil percentageOrdered B y: Zina Petit on 01-13-2025 Basophils/100 WBC (Bld) 0.7 % 0-1 [facility] CBC W/Diff, Automatedon 01-03 Absolute Lymph 1.23 X10 3/uL Normal 0.83-4.51 [facility] Comment on above: Performed By: #### L 500.2500, L501.1800, L100.0100, L501.5200 #### [facility] [address] [place], [address] Absolute Neut 4.4 X10 3/uL Normal 2.0-7.7 [facility] Comment on above: Performed By: #### L 500.2500, L501.1800, L100.0100, L501.5200 #### [facility] [address] [place], [address] Basophils/100 WBC (Bld) 0.7 % Normal 0-1 [facility] Comment on above: Performed By: #### L 500.2500, L501.1800, L100.0100, L501.5200 #### [facility] [address] [place], [address] Eosinophils/100 WBC (Bld) 5.8 % High 0-5 [facility] Comment on above: Performed By: #### L 500.2500, L501.1800, L100.0100, L501.5200 #### [facility] [address] [place], [address] Erythrocyte distribution width (RBC) [Ratio] 13.0 % Normal 11.6-14.6 [facility] Comment on above: Performed By: #### L 500.2500, L501.1800, L100.0100, L501.5200 #### [facility] [address] [place], [address] Hematocrit (Bld) [Volume fraction] 39.0 % Low 40-54 [facility] Comment on above: Performed By: #### L 500.2500, L501.1800, L100.0100, L501.5200 #### [facility] [address] [place], [address] Hemoglobin (Bld) [Mass/Vol] 12.7 g/dL Low 13.0-16.5 [facility] Comment on above: Performed By: #### L 500.2500, L501.1800, L100.0100, L501.5200 #### [facility] [address] [place], [address] IG% 0.400 Normal 0.0-0.9 [facility] Comment on above: Result Comment: IG% - Immature Granulocytes (promyelocytes, myelocytes and metamyelocytes) > 1% indicates that a LEFT SHIFT is Present. Performed By: #### L 500.2500, L501.1800, L100.0100, L501.5200 #### [facility] [address] [place], [address] Lymphocytes/100 WBC (Bld) 18.4 % Low 19-41 [facility] Comment on above: Performed By: #### L 500.2500, L501.1800, L100.0100, L501.5200 #### [facility] [address] [place], [address] MCH (RBC) [Entitic mass] 30.4 pg Normal 27.0-32.0 [facility] Comment on above: Performed By: #### L 500.2500, L501.1800, L100.0100, L501.5200 #### [facility] [address] [place], [address] MCHC (RBC) [Mass/Vol] 32.6 g/dL Normal 32-36 [facility] Comment on above: Performed By: #### L 500.2500, L501.1800, L100.0100, L501.5200 #### [facility] [address] [place], [address] MCV (RBC) [Entitic vol] 93.3 fL Normal 80-94 [facility] Comment on above: Performed By: #### L 500.2500, L501.1800, L100.0100, L501.5200 #### [facility] [address] [place], [address] Monocytes/100 WBC (Bld) 8.5 % Normal 0-10 [facility] Comment on above: Performed By: #### L 500.2500, L501.1800, L100.0100, L501.5200 #### [facility] [address] [place], [address] Neutrophils/100 WBC (Bld) 66.2 % Normal 47-70 [facility] Comment on above: Performed By: #### L 500.2500, L501.1800, L100.0100, L501.5200 #### [facility] [address] [place], [address] Nucleated RBC (Bld) [#/Vol] 0 10*3/uL Normal 0-5 [facility] Comment on above: Performed By: #### L 500.2500, L501.1800, L100.0100, L501.5200 #### [facility] [address] [place], [address] Platelet mean volume (Bld) [Entitic vol] 11.1 fL Normal 6.2-12.0 [facility] Comment on above: Performed By: #### L 500.2500, L501.1800, L100.0100, L501.5200 #### [facility] [address] [place], [address] Platelets (Bld) [#/Vol] 172 10*3/uL Normal 150-450 [facility] Comment on above: Performed By: #### L 500.2500, L501.1800, L100.0100, L501.5200 #### [facility] [address] [place], [address] RBC (Bld) [#/Vol] 4.18 10*6/uL Low 4.6-6.2 [facility] Comment on above: Performed By: #### L 500.2500, L501.1800, L100.0100, L501.5200 #### [facility] [address] [place], [address] RDW SD 44.3 fl High 35.1-43.9 [facility] Comment on above: Performed By: #### L 500.2500, L501.1800, L100.0100, L501.5200 #### [facility] [address] [place], [address] WBC (Bld) [#/Vol] 6.7 10*3/uL Normal 4.4-11.0 [facility] Comment on above: Performed By: #### L 500.2500, L501.1800, L100.0100, L501.5200 #### [facility] [address] [place], [address] Carbon dioxide, total [Moles /volume] in Central venous bloodOrdered By: Zina Petit on 01-13-2025 CO2 [Moles/Vol] 24.8 mmol/L 21.0-32.0 [facility] Chloride assayOrdered By: Alejandrina Petit on 01-13-2025 Chloride [Moles/Vol] 105 mmol/L 98-108 [facility] Eosinophil percentageOrdered By: Zina Petit on 01-13-2025 Eosinophils/100 WBC (Bld) 5.8 % High 0-5 [facility] Erythrocyte distribution wid th ratioOrdered By: Zina Petit on 01-13-2025 Erythrocyte distribution width (RBC) [Ratio] 13.0 % 11.6-14.6 [facility] Erythrocyte distribution wid th standard deviationOrdered By: Zina Petit on 01-13-2025 Erythrocyte distribution width (RBC) [Ratio] 44.3 fl High 35.1-43.9 [facility] Glomerular filtration rate ( GFR) estimation/1.73 sq m using serum, plasma, or whole bOrdered By: Zina Petit on 01-13-2025 GFR/1.73 sq M.predicted among non-blacks MDRD (S/P/Bld) [Vol rate/Area] 59 mL/min/{1.73_m2} Low >60 [facility] Comment on above: mL/min/1.73m2 CKD-EP I Creatinine Equation (2020) Hematocrit Auto (Bld) [Volum e fraction]Ordered By: Zina Petit on 01-13-2025 Hematocrit (Bld) [Volume fraction] 39.0 % Low 40-54 [facility] Hemoglobin measurementOrdere d By: Zina Petit on 01-13-2025 Hemoglobin (Bld) [Mass/Vol] 12.7 g/dL Low 13.0-16.5 [facility] Immature granulocytes/100 WB C Auto (Bld)Ordered By: Zina Petit on 01-13-2025 Immature granulocytes/100 WBC (Bld) 0.400 % 0.0-0.9 [facility] Comment on above: IG% - Immature Granu locytes (promyelocytes, myelocytes and metamyelocytes) > 1% indicates that a LEFT SHIFT is Present. MCV (mean corpuscular volume ) determinationOrdered By: Zina Petit on 01-13-2025 MCV (RBC) [Entitic vol] 93.3 fL 80-94 [facility] Magnesiumon 01-13-2025 Magnesium [Mass/Vol] 2.2 mg/dL Normal 1.5-2.2 [facility] Comment on above: Performed By: #### L 500.2500, L501.1800, L100.0100, L501.5200 #### [facility] [address] [place] [address], [address] Magnesium measurement (mass/ volume)Ordered By: Zina Petit on 01-13-2025 Magnesium (Unsp spec) [Mass/Vol] 2.2 mg/dL 1.5-2.2 [facility] Mean corpuscular hemoglobin (MCH) determinationOrdered By: Zina Petit on 01-13-2025 MCH (RBC) [Entitic mass] 30.4 pg 27.0-32.0 [facility] Mean corpuscular hemoglobin concentration (MCHC) determinationOrdered By: Zina Petit on 01-13-2025 MCHC (RBC) [Mass/Vol] 32.6 g/dL 32-36 [facility] Mean platelet volume determi nationOrdered By: Zina Petit on 01-13-2025 Platelet mean volume (Bld) [Entitic vol] 11.1 fL 6.2-12.0 [facility] Monocyte percentageOrdered B y: Zina Petit on 01-13-2025 Monocytes/100 WBC (Bld) 8.5 % 0-10 [facility] Neutrophil percentageOrdered By: Zina Petit on 01-13-2025 Neutrophils/100 WBC (Bld) 66.2 % 47-70 [facility] Nucleated red blood cell per centageOrdered By: Zina Petit on 01-13-2025 Nucleated RBC/100 WBC (Bld) [Ratio] 0 % 0-5 [facility] Platelet countOrdered By: Alejandrina Petit on 01-13-2025 Platelets (Bld) [#/Vol] 172 10*3/uL 150-450 [facility] Potassium measurement (mass/ volume)Ordered By: Zina Petit on 01-13-2025 Potassium (Unsp spec) [Mass/Vol] 4.2 mmol/L 3.3-5.1 [facility] RBC Auto (Bld) [#/Vol]Ordere d By: Zina Petit on 01-13-2025 RBC (Bld) [#/Vol] 4.18 10*6/uL Low 4.6-6.2 [facility] Serum creatinine measurement (mass/volume)Ordered By: Zina Petit on 01-13-2025 Creatinine [Mass/Vol] 1.19 mg/dL 0.70-1.20 [facility] Serum glucose measurement (m ass/volume)Ordered By: Zina Petit on 01-13-2025 Glucose [Mass/Vol] 95 mg/dL 70-99 [facility] Serum or plasma albumin dulce urement (mass/volume)Ordered By: Zina Petit on 01-13-2025 Albumin [Mass/Vol] 4.1 g/dL 3.4-4.8 [facility] Serum or plasma calcium dulce urement (mass/volume)Ordered By: Zina Petit on 01-13-2025 Calcium [Mass/Vol] 9.1 mg/dL 7.6-11.0 [facility] Serum or plasma urea nitroge n measurement (mass/volume)Ordered By: Zina Petit on 01-13-2025 Urea nitrogen [Mass/Vol] 27 mg/dL High 4-19 [facility] Sodium levelOrdered By: Deanne Petit on 01-13-2025 Sodium [Moles/Vol] 139 mmol/L 133-145 [facility] White blood cell (WBC) count Ordered By: Zina Petit on 01-13-2025 WBC (Bld) [#/Vol] 6.7 10*3/uL 4.4-11.0 [facility] CT KNEE W/O CONTRAST RIGHTon 12-30-2024 CT [...] 12/30/2024 7:55:56 AM Ordering Provider: ZINA PETIT [facility] XR CHEST 2 VIEWSon XR CHEST 2 [...] 12/30/2024 3:38:14 AM Ordering Provider: ZINA PETIT [facility] Anion gap in Serum or Plasma Ordered By: Dmitriy Hardy on 10-11-2024 Anion gap [Moles/Vol] 11 mmol/L 5-15 [facility] BUN/creatinine ratioOrdered By: Dmitriy Hardy on 10-11-2024 Urea nitrogen/Creatinine [Mass ratio] 21.8 mg/mg High 10-20 [facility] Bilirubin, totalOrdered By: Dmitriy Hardy on 10-11-2024 Bilirubin [Mass/Vol] 0.60 mg/dL 0.00-1.30 [facility] Calculated very low density lipoprotein (VLDL) cholesterol measurementOrdered By: Dmitriy Hardy on 10-11-2024 Calculated very low density lipoprotein (VLDL) cholesterol measurement 23 mg/dL -40 [facility] VLDL Cholesterol 23 mg/dL -40 [facility] Carbon dioxide, total [Moles /volume] in Central venous bloodOrdered By: Dmitriy Hardy on 10-11-2024 CO2 [Moles/Vol] 25.3 mmol/L 21.0-32.0 [facility] Chloride assayOrdered By: Manisha Hardy on 10-11-2024 Chloride [Moles/Vol] 103 mmol/L 98-108 [facility] Comprehensive Metabolic Prof ilon 10-11-2024 Albumin [Mass/Vol] 4.3 g/dL Normal 3.4-4.8 [facility] Comment on above: Order Comment: Order Date: 10/11/24Order Info: [id number] - CMPOrder Info: [id number] - LIPIDOrder Info: 3 - TSHOrder Info: 7 - T4F Performed By: #### L 500.4050, L500.4100, L506.0400, L501.9520 ####[facility] [address] [place], [address] Albumin/Globulin [Mass ratio] 1.5 {ratio} Normal 0.9-2.4 [facility] Comment on above: Order Comment: Order Date: 10/11/24Order Info: [id number] - CMPOrder Info: [id number] - LIPIDOrder Info: 3 - TSHOrder Info: 7 - T4F Performed By: #### L 500.4050, L500.4100, L506.0400, L501.9520 ####[facility] [address] [place], [address] ALK PHOS 91 U/L Normal 40-129 [facility] Comment on above: Order Comment: Order Date: 10/11/24Order Info: [id number] - CMPOrder Info: [id number] - LIPIDOrder Info: 3 - TSHOrder Info: [id number] - T4F Performed By: #### L 500.4050, L500.4100, L506.0400, L501.9520 ####[facility] [address] [place], [address] ALT [Catalytic activity/Vol] 11 U/L Normal <=46 [facility] Comment on above: Order Comment: Order Date: 10/11/24Order Info: [id number] - CMPOrder Info: [id number] - LIPIDOrder Info: 3 - TSHOrder Info: [id number] - T4F Performed By: #### L 500.4050, L500.4100, L506.0400, L501.9520 ####[facility] [address] [place], [address] AST [Catalytic activity/Vol] 24 U/L Normal <=37 [facility] Comment on above: Order Comment: Order Date: 10/11/24Order Info: [id number] - CMPOrder Info: [id number] - LIPIDOrder Info: [id number] - TSHOrder Info: [id number] - T4F Performed By: #### L 500.4050, L500.4100, L506.0400, L501.9520 ####[facility] [address] [place], [address] Bilirubin [Mass/Vol] 0.60 mg/dL Normal 0.00-1.30 [facility] Comment on above: Order Comment: Order Date: 10/11/24Order Info: [id number] - CMPOrder Info: [id number] - LIPIDOrder Info: [id number] - TSHOrder Info: [id number] - T4F Performed By: #### L 500.4050, L500.4100, L506.0400, L501.9520 ####[facility] [address] [place], [address] BUN/CRE 21.8 RATIO High 10-20 [facility] Comment on above: Order Comment: Order Date: 10/11/24Order Info: [id number] - CMPOrder Info: [id number] - LIPIDOrder Info: [id number] - TSHOrder Info: [id number] - T4F Performed By: #### L 500.4050, L500.4100, L506.0400, L501.9520 ####[facility] [address] [place], [address] Calcium [Mass/Vol] 9.3 mg/dL Normal 7.6-11.0 [facility] Comment on above: Order Comment: Order Date: 10/11/24Order Info: [id number] - CMPOrder Info: [id number] - LIPIDOrder Info: 3 - TSHOrder Info: [id number] - T4F Performed By: #### L 500.4050, L500.4100, L506.0400, L501.9520 ####[facility] [address] [place], [address] Chloride [Moles/Vol] 103 mmol/L Normal 98-108 [facility] Comment on above: Order Comment: Order Date: 10/11/24Order Info: [id number] - CMPOrder Info: [id number] - LIPIDOrder Info: [id number] - TSHOrder Info: 7 - T4F Performed By: #### L 500.4050, L500.4100, L506.0400, L501.9520 ####[facility] [address] [place], [address] CO2 [Moles/Vol] 25.3 mmol/L Normal 21.0-32.0 [facility] Comment on above: Order Comment: Order Date: 10/11/24Order Info: [id number] - CMPOrder Info: [id number] - LIPIDOrder Info: 3 - TSHOrder Info: [id number] - T4F Performed By: #### L 500.4050, L500.4100, L506.0400, L501.9520 ####[facility] [address] [place], [address] Creatinine [Mass/Vol] 1.01 mg/dL Normal 0.70-1.20 [facility] Comment on above: Order Comment: Order Date: 10/11/24Order Info: [id number] - CMPOrder Info: [id number] - LIPIDOrder Info: 3 - TSHOrder Info: [id number] - T4F Performed By: #### L 500.4050, L500.4100, L506.0400, L501.9520 ####[facility] [address] [place], [address] GAP 11 Normal 5-15 [facility] Comment on above: Order Comment: Order Date: 10/11/24Order Info: [id number] - CMPOrder Info: [id number] - LIPIDOrder Info: [id number] - TSHOrder Info: [id number] - T4F Performed By: #### L 500.4050, L500.4100, L506.0400, L501.9520 ####[facility] [address] [place], [address] GFR/1.73 sq M.predicted among non-blacks MDRD (S/P/Bld) [Vol rate/Area] 73 mL/min/{1.73_m2} Normal >60 [facility] Comment on above: Order Comment: Order Date: 10/11/24Order Info: [id number] - CMPOrder Info: [id number] - LIPIDOrder Info: [id number] - TSHOrder Info: [id number] - T4F Result Comment: mL/m in/1.73m2 CKD-EPI Creatinine Equation (2020) Performed By: #### L 500.4050, L500.4100, L506.0400, L501.9520 ####[facility] [address] [place], [address] Globulin (S) [Mass/Vol] 2.9 g/dL Normal 2.2-4.2 [facility] Comment on above: Order Comment: Order Date: 10/11/24Order Info: [id number] - CMPOrder Info: [id number] - LIPIDOrder Info: [id number] - TSHOrder Info: [id number] - T4F Performed By: #### L 500.4050, L500.4100, L506.0400, L501.9520 ####[facility] [address] [place], [address] Glucose [Mass/Vol] 97 mg/dL Normal 70-99 [facility] Comment on above: Order Comment: Order Date: 10/11/24Order Info: [id number] - CMPOrder Info: [id number] - LIPIDOrder Info: 3 - TSHOrder Info: 4-7 - T4F Performed By: #### L 500.4050, L500.4100, L506.0400, L501.9520 ####[facility] [address] [place], [address] Potassium [Moles/Vol] 4.4 mmol/L Normal 3.3-5.1 [facility] Comment on above: Order Comment: Order Date: 10/11/24Order Info: [id number] - CMPOrder Info: [id number] - LIPIDOrder Info: 3 - TSHOrder Info: 7 - T4F Performed By: #### L 500.4050, L500.4100, L506.0400, L501.9520 ####[facility] [address] [place], [address] Sodium [Moles/Vol] 139 mmol/L Normal 133-145 [facility] Comment on above: Order Comment: Order Date: 10/11/24Order Info: [id number] - CMPOrder Info: [id number] - LIPIDOrder Info: 3 - TSHOrder Info: 7 - T4F Performed By: #### L 500.4050, L500.4100, L506.0400, L501.9520 ####[facility] [address] [place], [address] T PROT 7.1 g/dL Normal 5.9-8.4 [facility] Comment on above: Order Comment: Order Date: 10/11/24Order Info: [id number] - CMPOrder Info: [id number] - LIPIDOrder Info: 3 - TSHOrder Info: [id number] - T4F Performed By: #### L 500.4050, L500.4100, L506.0400, L501.9520 ####[facility] [address] [place], [address] Urea nitrogen [Mass/Vol] 22 mg/dL High 4-19 [facility] Comment on above: Order Comment: Order Date: 10/11/24Order Info: [id number] - CMPOrder Info: [id number] - LIPIDOrder Info: [id number] - TSHOrder Info: [id number] - T4F Performed By: #### L 500.4050, L500.4100, L506.0400, L501.9520 ####[facility] [address] [place], [address] GFR/1.73 sq M.predicted yimi g non-blacks MDRD (S/P/Bld) [Vol rate/Area]Ordered By: Dmitriy Hardy on 10-11-2024 Estimated GFR (MDRD) Non-Af Amer 73 >60 [facility] Comment on above: mL/min/1.73m2 CKD-EP I Creatinine Equation (2020) Glomerular filtration rate ( GFR) estimation/1.73 sq m using serum, plasma, or whole bOrdered By: Dmitriy Hardy on 10-11-2024 GFR/1.73 sq M.predicted among non-blacks MDRD (S/P/Bld) [Vol rate/Area] 73 mL/min/{1.73_m2} >60 [facility] Comment on above: mL/min/1.73m2 CKD-EP I Creatinine Equation (2020) LDL calc ser/plasOrdered By: Dmitriy Hardy on 10-11-2024 Cholesterol in LDL [Mass/Vol] 60 mg/dL [facility] Comment on above: Kxxzyqbivq=226-217 m g/dL & Higher Exgn=814 mg/dL or greater LDL Cholesterol, Calculated 60 mg/dL [facility] Comment on above: Xjxchexsdz=381-457 m g/dL & Higher Cvkm=788 mg/dL or greater Laboratory - Chemistry and C hemistry - challengeOrdered By: Dmitriy Hardy on 10-11-2024 AST [Catalytic activity/Vol] 24 U/L <38 [facility] Lipid Profileon 10-11-2024 CHOL:HDL 3.33 Normal [facility] Comment on above: Order Comment: Order Date: 10/11/24Order Info: [id number] - CMPOrder Info: [id number] - LIPIDOrder Info: [id number] - TSHOrder Info: [id number] - T4F Performed By: #### L 500.4050, L500.4100, L506.0400, L501.9520 ####[facility] [address] [place], [address] Cholesterol [Mass/Vol] 118 mg/dL Normal <=200 [facility] Comment on above: Order Comment: Order Date: 10/11/24Order Info: [id number] - CMPOrder Info: [id number] - LIPIDOrder Info: 3 - TSHOrder Info: [id number] - T4F Result Comment: Chol esterol level, Desirable <200 mg/dL Borderline high cholesterol 200-239 mg/dL High cholesterol >=240 mg/dL Recommendations of the NCEP Adult Treatment Panel for the following risk-cutoff thresholds for the [place] population. Performed By: #### L 500.4050, L500.4100, L506.0400, L501.9520 ####[facility] [address] [place], [address] Cholesterol in HDL [Mass/Vol] 35 mg/dL Low [facility] Comment on above: Order Comment: Order Date: 10/11/24Order Info: [id number] - CMPOrder Info: [id number] - LIPIDOrder Info: [id number] - TSHOrder Info: [id number] - T4F Result Comment: Raquel onal Cholesterol Education Program (NCEP) guidelines: <40 mg/dL: Low HDL-cholesterol (major risk factor for CHD) >= 60 mg/dL: High HDL-cholesterol (negative risk factor for CHD) HDL-cholesterol is affected by a number of factors, e.g. smoking, exercise, hormones, sex and age. Performed By: #### L 500.4050, L500.4100, L506.0400, L501.9520 ####[facility] [address] [place], [address] Cholesterol in LDL [Mass/Vol] 60 mg/dL Normal [facility] Comment on above: Order Comment: Order Date: 10/11/24Order Info: [id number] - CMPOrder Info: [id number] - LIPIDOrder Info: 3 - TSHOrder Info: 7 - T4F Result Comment: Bord rxdqpo=941-578 mg/dL Higher Cedf=549 mg/dL or greater Performed By: #### L 500.4050, L500.4100, L506.0400, L501.9520 ####[facility] [address] [place], [address] Cholesterol in VLDL [Mass/Vol] 23 mg/dL Normal 5-40 [facility] Comment on above: Order Comment: Order Date: 10/11/24Order Info: 07- - CMPOrder Info: [id number] - LIPIDOrder Info: [id number] - TSHOrder Info: 7 - T4F Performed By: #### L 500.4050, L500.4100, L506.0400, L501.9520 ####[facility] [address] [place], [address] Triglyceride [Mass/Vol] 114 mg/dL Normal [facility] Comment on above: Order Comment: Order Date: 10/11/24Order Info: [id number] - CMPOrder Info: [id number] - LIPIDOrder Info: 3 - TSHOrder Info: 7 - T4F Result Comment: The drugs N-Acetylcysteine and Metamizole may falsely depress this assay. Normal range: <150 mg/dL Borderline High: 150-199 mg/dL High: 200-499 mg/dL Very High: >500 mg/dL Performed By: #### L 500.4050, L500.4100, L506.0400, L501.9520 ####[facility] [address] [place], [address] Potassium (Unsp spec) [Mass/ Vol]Ordered By: Dmitriy Hardy on 10-11-2024 Potassium [Moles/Vol] 4.4 mmol/L 3.3-5.1 [facility] Potassium measurement (mass/ volume)Ordered By: Dmitriy Hardy on 10-11-2024 Potassium (Unsp spec) [Mass/Vol] 4.4 mmol/L 3.3-5.1 [facility] Screening total cholesterol/ high density lipoprotein (HDL) cholesterol ratioOrdered By: Dmitriy Hardy on 10-11-2024 Cholesterol.total/Chol esterol in HDL [Mass ratio] 3.33 {ratio} [facility] Serum creatinine measurement (mass/volume)Ordered By: Dmitriy Hardy on 10-11-2024 Creatinine [Mass/Vol] 1.01 mg/dL 0.70-1.20 [facility] Serum globulin measurementOr dered By: Dmitriy Hardy on 10-11-2024 Globulin (S) [Mass/Vol] 2.9 g/dL 2.2-4.2 [facility] Serum glucose measurement (m ass/volume)Ordered By: Dmitriy Hardy on 10-11-2024 Glucose [Mass/Vol] 97 mg/dL 70-99 [facility] Serum or plasma alanine dyson otransferase (ALT) measurementOrdered By: Dmitriy Hardy on 10-11-2024 ALT [Catalytic activity/Vol] 11 U/L <47 [facility] Serum or plasma albumin dulce urement (mass/volume)Ordered By: Dmtiriy Hardy on 10-11-2024 Albumin [Mass/Vol] 4.3 g/dL 3.4-4.8 [facility] Serum or plasma albumin/glob ulin mass ratioOrdered By: Dmitriy Hardy on 10-11-2024 Albumin/Globulin [Mass ratio] 1.5 {ratio} 0.9-2.4 [facility] Serum or plasma alkaline piyush sphatase measurementOrdered By: Dmitriy Hardy on 10-11-2024 ALP [Catalytic activity/Vol] 91 U/L 40-129 [facility] Serum or plasma calcium dulce urement (mass/volume)Ordered By: Dmitriy Hardy on 10-11-2024 Calcium [Mass/Vol] 9.3 mg/dL 7.6-11.0 [facility] Serum or plasma cholesterol in HDL measurement (mass/volume)Ordered By: Dmitriy Hardy on 10-11-2024 Cholesterol in HDL [Mass/Vol] 35 mg/dL Low >40 [facility] Comment on above: National Cholesterol Education Program (NCEP) guidelines:<40 mg/dL: Low HDL-cholesterol (major risk factor for CHD)>= 60 mg/dL: High HDL-cholesterol (negative risk factor for CHD)HDL-cholesterol is affected by a number of factors, e.g. smoking, exercise, hormones, sex and age. Serum or plasma cholesterol measurement (mass/volume)Ordered By: Dmitriy Hardy on 10-11-2024 Cholesterol [Mass/Vol] 118 mg/dL <201 [facility] Comment on above: Cholesterol level, D esirable <200 mg/dLBorderline high cholesterol 200-239 mg/dLHigh cholesterol >=240 mg/dLRecommendations of the NCEP Adult Treatment Panel for the following risk-cutoff thresholds for the [place] population. Serum or plasma urea nitroge n measurement (mass/volume)Ordered By: Dmitriy Hardy on 10-11-2024 Urea nitrogen [Mass/Vol] 22 mg/dL High 4-19 [facility] Sodium levelOrdered By: Dmitriy Hardy on 10-11-2024 Sodium [Moles/Vol] 139 mmol/L 133-145 [facility] T4 Free Directon 10-11-2024 T4 FREE DIRECT 1.30 ng/dL Normal 0.76-1.46 [facility] Comment on above: Order Comment: Order Date: 10/11/24Order Info: [id number] - CMPOrder Info: [id number] - LIPIDOrder Info: [id number] - TSHOrder Info: [id number] - T4F Performed By: #### L [id number], [id number], [id number], [id number] ####[facility] [id number] [place], [address] T4 freeOrdered By: Dmitriy galo on 10-11-2024 Free T4 [Mass/Vol] 1.30 ng/dL 0.76-1.46 [facility] TSH DL <= 0.005 mIU/L QnOrde red By: Dmitriy Hardy on 10-11-2024 Thyroid Stimulating Hormone (TSH) 3.070 uIU/mL 0.300-4.20 0 [facility] TSH Qn 3.070 uIU/mL 0.300-4.20 0 [facility] Thyroid Stim Hormone (TSH)on 10-11-2024 TSH 3.070 uIU/mL Normal 0.300-4.20 0 [facility] Comment on above: Order Comment: Order Date: 10/11/24Order Info: [id number] - CMPOrder Info: [id number] - LIPIDOrder Info: [id number] - TSHOrder Info: [id number] - T4F Performed By: #### L 500.4050, L500.4100, L506.0400, L501.9520 ####[facility] [address] [place], [place], [address] Total proteinOrdered By: Dean Hardy on 10-11-2024 Protein [Mass/Vol] 7.1 g/dL 5.9-8.4 [facility] Triglycerides measurementOrd ered By: Dmitriy Hardy on 10-11-2024 Triglyceride [Mass/Vol] 114 mg/dL <199 [facility] Comment on above: The drugs N-Acetylcy steine and Metamizole may falsely depress this assay. Normal range: <150 mg/dLBorderline High: 150-199 mg/dLHigh: 200-499 mg/dLVery High: >500 mg/dL No Panel Informationon 07-03 POC SARS CoV-2 Antigen Negative [facility] Visit Reporton 1 09-03-2023 Urgent Care Visit Report [facility] [address], [address] [place] [address] OFFICE VISIT Date of Service: 07/03/24 MR#: [id number] Acct: [id number] Name: SP BABCOCK Rep #: [id number] : 1940 Provider: AIDAN yeh Age/Sex: 83/M [place] [facility] [place]: Signed Intake Vital Signs 07/03/24 09:58 Height 5 ft 8 in Weight: 156 lb 6 oz BMI 23.8 BP 120/58 L Blood Pressure Location Lt brachial Position Sitting Respiration 16 Pulse 50 L Pulse Source NIBP Temp 98.1 F Temp Source Oral Pulse Oximetry (%) 96 Oxygen Delivery Method room air Intake Visit Reasons: HEAD CONGESTION Chief Complaint: cough, congestion Crime Lab Analyst Required: No Is patient in pain?: No [...] the last week. He has been taking yflf-ezd-fheakqn medications without relief. COVID testing prior to [...] negative. W (more content not included)... Normal [facility] CBC W/Diff, Automatedon 10-0 Absolute Lymph 1.35 X10 3/uL Normal 0.83-4.51 [facility] Comment on above: Performed By: #### L 500.4100, L506.0400, L100.0100, L501.9520, L500.4050 #### [facility] [address] [place], [address] Absolute Neut 3.6 X10 3/uL Normal 2.0-7.7 [facility] Comment on above: Performed By: #### L 500.4100, L506.0400, L100.0100, L501.9520, L500.4050 #### [facility] [address] [place], [address] Basophils/100 WBC (Bld) 0.7 % Normal 0-1 [facility] Comment on above: Performed By: #### L 500.4100, L506.0400, L100.0100, L501.9520, L500.4050 #### [facility] [address] [place], [address] Eosinophils/100 WBC (Bld) 5.6 % High 0-5 [facility] Comment on above: Performed By: #### L 500.4100, L506.0400, L100.0100, L501.9520, L500.4050 #### [facility] [address] [place], [address] Erythrocyte distribution width (RBC) [Ratio] 12.9 % Normal 11.6-14.6 [facility] Comment on above: Performed By: #### L 500.4100, L506.0400, L100.0100, L501.9520, L500.4050 #### [facility] [address] [place], [address] Hematocrit (Bld) [Volume fraction] 41.9 % Normal 40-54 [facility] Comment on above: Performed By: #### L 500.4100, L506.0400, L100.0100, L501.9520, L500.4050 #### [facility] [address] [place], [address] Hemoglobin (Bld) [Mass/Vol] 13.3 g/dL Normal 13.0-16.5 [facility] Comment on above: Performed By: #### L 500.4100, L506.0400, L100.0100, L501.9520, L500.4050 #### [facility] [address] [place], [address] IG% 0.700 Normal 0.0-0.9 [facility] Comment on above: Result Comment: IG% - Immature Granulocytes (promyelocytes, myelocytes and metamyelocytes) > 1% indicates that a LEFT SHIFT is Present. Performed By: #### L 500.4100, L506.0400, L100.0100, L501.9520, L500.4050 #### [facility] [address] [place], [address] Lymphocytes/100 WBC (Bld) 22.8 % Normal 19-41 [facility] Comment on above: Performed By: #### L 500.4100, L506.0400, L100.0100, L501.9520, L500.4050 #### [facility] [address] [place], [address] MCH (RBC) [Entitic mass] 29.8 pg Normal 27.0-32.0 [facility] Comment on above: Performed By: #### L 500.4100, L506.0400, L100.0100, L501.9520, L500.4050 #### [facility] [address] [place], [address] MCHC (RBC) [Mass/Vol] 31.7 g/dL Low 32-36 [facility] Comment on above: Performed By: #### L 500.4100, L506.0400, L100.0100, L501.9520, L500.4050 #### [facility] [address] [place], [address] MCV (RBC) [Entitic vol] 93.7 fL Normal 80-94 [facility] Comment on above: Performed By: #### L 500.4100, L506.0400, L100.0100, L501.9520, L500.4050 #### [facility] [address] [place], [address] Monocytes/100 WBC (Bld) 9.5 % Normal 0-10 [facility] Comment on above: Performed By: #### L 500.4100, L506.0400, L100.0100, L501.9520, L500.4050 #### [facility] [address] [place], [address] Neutrophils/100 WBC (Bld) 60.7 % Normal 47-70 [facility] Comment on above: Performed By: #### L 500.4100, L506.0400, L100.0100, L501.9520, L500.4050 #### [facility] [address] [place], [address] Nucleated RBC (Bld) [#/Vol] 0 10*3/uL Normal 0-5 [facility] Comment on above: Performed By: #### L 500.4100, L506.0400, L100.0100, L501.9520, L500.4050 #### [facility] [address] [place], [address] Platelet mean volume (Bld) [Entitic vol] 11.3 fL Normal 6.2-12.0 [facility] Comment on above: Performed By: #### L 500.4100, L506.0400, L100.0100, L501.9520, L500.4050 #### [facility] [address] [place], [address] Platelets (Bld) [#/Vol] 167 10*3/uL Normal 150-450 [facility] Comment on above: Performed By: #### L 500.4100, L506.0400, L100.0100, L501.9520, L500.4050 #### [facility] [address] [place], [address] RBC (Bld) [#/Vol] 4.47 10*6/uL Low 4.6-6.2 [facility] Comment on above: Performed By: #### L 500.4100, L506.0400, L100.0100, L501.9520, L500.4050 #### [facility] [address] [place], [address] RDW SD 44.2 fl High 35.1-43.9 [facility] Comment on above: Performed By: #### L 500.4100, L506.0400, L100.0100, L501.9520, L500.4050 #### [facility] [address] [place], [address] WBC (Bld) [#/Vol] 5.9 10*3/uL Normal 4.4-11.0 [facility] Comment on above: Performed By: #### L 500.4100, L506.0400, L100.0100, L501.9520, L500.4050 #### [facility] [address] [place], [address] Comprehensive Metabolic Prof [facility] 04-07-2024 Albumin [Mass/Vol] 3.7 g/dL Normal 3.2-5.0 [facility] Comment on above: Order Comment: N Performed By: #### L 500.4100, L506.0400, L100.0100, L501.9520, L500.4050 #### [facility] [address] [place], [address] Albumin/Globulin [Mass ratio] 1.1 {ratio} Normal 0.9-2.4 [facility] Comment on above: Order Comment: N Performed By: #### L 500.4100, L506.0400, L100.0100, L501.9520, L500.4050 #### [facility] [address] [place], [address] ALK P 88 U/L Normal 45-117 [facility] Comment on above: Order Comment: N Performed By: #### L 500.4100, L506.0400, L100.0100, L501.9520, L500.4050 #### [facility] [address] [place], [address] ALT [Catalytic activity/Vol] 13 U/L Low 16-61 [facility] Comment on above: Order Comment: N Performed By: #### L 500.4100, L506.0400, L100.0100, L501.9520, L500.4050 #### [facility] [address] [place], [address] AST [Catalytic activity/Vol] 18 U/L Normal 15-37 [facility] Comment on above: Order Comment: N Performed By: #### L 500.4100, L506.0400, L100.0100, L501.9520, L500.4050 #### [facility] [address] [place], [address] Bilirubin [Mass/Vol] 1.00 mg/dL Normal 0.20-1.00 [facility] Comment on above: Order Comment: N Result Comment: For patients on eltrombopag therapy, use of Dimension [place] TBIL is not recommended. Performed By: #### L 500.4100, L506.0400, L100.0100, L501.9520, L500.4050 #### [facility] [address] [place], [address] BUN/CRE 22.5 RATIO High 10-20 [facility] Comment on above: Order Comment: N Performed By: #### L 500.4100, L506.0400, L100.0100, L501.9520, L500.4050 #### [facility] [address] [place], [address] CA,Total 9.2 mg/dL Normal 8.5-10.1 [facility] Comment on above: Order Comment: N Performed By: #### L 500.4100, L506.0400, L100.0100, L501.9520, L500.4050 #### [facility] [address] [place], [address] Chloride [Moles/Vol] 104 mmol/L Normal 98-107 [facility] Comment on above: Order Comment: N Performed By: #### L 500.4100, L506.0400, L100.0100, L501.9520, L500.4050 #### [facility] [address] [place], [address] CO2 [Moles/Vol] 28.0 mmol/L Normal 21.0-32.0 [facility] Comment on above: Order Comment: N Performed By: #### L 500.4100, L506.0400, L100.0100, L501.9520, L500.4050 #### [facility] [address] [place], [address] Creatinine [Mass/Vol] 1.11 mg/dL Normal 0.70-1.30 [facility] Comment on above: Order Comment: N Result Comment: The validity of the calculated GFR GFRAA in patients over 70 years has not been determined. Clinical correlation is essential. Performed By: #### L 500.4100, L506.0400, L100.0100, L501.9520, L500.4050 #### [facility] [address] [place], [address] EST GFR - AA 81 mL/min Normal >60 [facility] Comment on above: Order Comment: N Result Comment: Afri can Turkish GFR Calc Performed By: #### L 500.4100, L506.0400, L100.0100, L501.9520, L500.4050 #### [facility] [address] [place], [address] GAP 4 Low 5-15 [facility] Comment on above: Order Comment: N Performed By: #### L 500.4100, L506.0400, L100.0100, L501.9520, L500.4050 #### [facility] [address] [place], [address] GFR/1.73 sq M.predicted among non-blacks MDRD (S/P/Bld) [Vol rate/Area] 67 mL/min/{1.73_m2} Normal >60 [facility] Comment on above: Order Comment: N Result Comment: Non- GFR Calc Performed By: #### L 500.4100, L506.0400, L100.0100, L501.9520, L500.4050 #### [facility] [address] [place], [address] Globulin (S) [Mass/Vol] 3.3 g/dL Normal 2.2-4.2 [facility] Comment on above: Order Comment: N Performed By: #### L 500.4100, L506.0400, L100.0100, L501.9520, L500.4050 #### [facility] [address] [place], [address] Glucose [Mass/Vol] 103 mg/dL Normal 74-106 [facility] Comment on above: Order Comment: N Result Comment: Fast ing Glucose result from 100 to 125 mg/dL suggests IMPAIRED HOMEOSTASIS per A.D.A. criteria. Performed By: #### L 500.4100, L506.0400, L100.0100, L501.9520, L500.4050 #### [facility] [address] [place], [address] Potassium [Moles/Vol] 4.2 mmol/L Normal 3.5-5.1 [facility] Comment on above: Order Comment: N Performed By: #### L 500.4100, L506.0400, L100.0100, L501.9520, L500.4050 #### [facility] [address] [place], [address] Sodium [Moles/Vol] 136 mmol/L Normal 136-145 [facility] Comment on above: Order Comment: N Performed By: #### L 500.4100, L506.0400, L100.0100, L501.9520, L500.4050 #### [facility] [address] [place], [address] T PROT 7.0 g/dL Normal 6.4-8.2 [facility] Comment on above: Order Comment: N Performed By: #### L 500.4100, L506.0400, L100.0100, L501.9520, L500.4050 #### [facility] [address] [place], [address] Urea nitrogen [Mass/Vol] 25 mg/dL High 7-18 [facility] Comment on above: Order Comment: N Performed By: #### L 500.4100, L506.0400, L100.0100, L501.9520, L500.4050 #### [facility] [address] [place], [address] Lipid Profileon 04-07-2024 Cholesterol [Mass/Vol] 122 mg/dL Normal 200 [facility] Comment on above: Order Comment: N Result Comment: <200 mg/dL Desirable 200-240 mg/dL Borderline >240 mg/dL High Risk Performed By: #### L 500.4100, L506.0400, L100.0100, L501.9520, L500.4050 ####[facility] [address] [place], [address] Cholesterol in HDL [Mass/Vol] 40 mg/dL Normal [facility] Comment on above: Order Comment: N Result Comment: The drugs N-Acetylcysteine and Metamizole may falsely depress this assay. Reference Range HDL <40 mg/dL Low HDL Cholesterol HDL >or= 60 mg/dL High HDL Cholesterol Performed By: #### L 500.4100, L506.0400, L100.0100, L501.9520, L500.4050 ####[facility] [address] [place], [address] Cholesterol in LDL [Mass/Vol] 65 mg/dL Normal 0-130 [facility] Comment on above: Order Comment: N Performed By: #### L 500.4100, L506.0400, L100.0100, L501.9520, L500.4050 ####[facility] [address] [place], [address] Cholesterol in VLDL [Mass/Vol] 17 mg/dL Normal 5-40 [facility] Comment on above: Order Comment: N Performed By: #### L 500.4100, L506.0400, L100.0100, L501.9520, L500.4050 ####[facility] [address] [place], [address] Triglyceride [Mass/Vol] 83 mg/dL Normal [facility] Comment on above: Order Comment: N Result Comment: The drugs N-Acetylcysteine and Metamizole may falsely depress this assay. Serum Triglycerides Reference Interval Normal <150 mg/dL Borderline high 150 - 199 mg/dL High 200 - 499 mg/dL Very High > or = 500 mg/dL Performed By: #### L 500.4100, L506.0400, L100.0100, L501.9520, L500.4050 ####[facility] [address] [place], [address] T4 Free Directon 04-07-2024 T4 FREE DIRECT 0.97 ng/dL Normal 0.76-1.46 [facility] Comment on above: Order Comment: N Performed By: #### L 500.4100, L506.0400, L100.0100, L501.9520, L500.4050 ####[facility] [address] [place], [place], [address] Thyroid Stim Hormone (TSH)on 04-07-2024 TSH 2.890 uIU/mL Normal 0.358-3.74 0 [facility] Comment on above: Order Comment: N Performed By: #### L 500.4100, L506.0400, L100.0100, L501.9520, L500.4050 ####[facility] [address] [place], [place], [id number] Basophil percentageOrdered B y: Merle Stathopoulos on 06-24-2023 Cholesterol [Mass/Vol] 130 mg/dL <200 [facility] Comment on above: <200 mg/dL Desirable 200-240 mg/dL Borderline >240 mg/dL High Risk Triglyceride [Mass/Vol] 159 mg/dL <199 [facility] Comment on above: The drugs N-Acetylcy steine and Metamizole may falsely depress this assay.Serum Triglycerides Reference Interval Normal <150 mg/dL Borderline high 150 - 199 mg/dL High 200 - 499 mg/dL Very High > or = 500 mg/dL Laboratory - Chemistry and C hemistry - challengeOrdered By: Merle Stathopoulos on 06-24-2023 Free T4 [Mass/Vol] 1.00 ng/dL 0.76-1.46 [facility] No Panel InformationOrdered By: Merle Stathopoulos on 06-24-2023 Thyroid Stimulating Hormone (TSH) 2.13 uIU/mL 0.358-3.74 [facility] Serum or plasma cholesterol in HDL measurement (mass/volume)Ordered By: Merle Stathopoulos on 06-24-2023 Cholesterol in HDL [Mass/Vol] 40 mg/dL >40 [facility] Comment on above: The drugs N-Acetylcy steine and Metamizole may falsely depress this assay. Reference Range HDL <40 mg/dL Low HDL Cholesterol HDL >or= 60 mg/dL High HDL Cholesterol Serum or plasma cholesterol in VLDL measurement (mass/volume)Ordered By: Merle Alexander on 06-24-2023 Cholesterol in VLDL [Mass/Vol] 32 mg/dL 5-40 [facility] Serum or plasma low density lipoprotein (LDL) cholesterol measurement (mass/volume)Ordered By: Merle Statliliaoulgolden on 06-24-2023 Cholesterol in LDL [Mass/Vol] 58 mg/dL 0-130 [facility] - Chemistry and C hemistry - challengeOrdered By: Ashwin Moreland on 04-03-2023 Free T4 [Mass/Vol] 0.99 ng/dL 0.76-1.46 [facility] No Panel InformationOrdered By: Ashwin Moreland on 04-03-2023 Thyroid Stimulating Hormone (TSH) 1.65 uIU/mL 0.358-3.74 [facility] Absolute lymphocyte countOrd ered By: Dmitriy Hardy on 01-20-2023 Lymphocytes Auto (Unsp spec) [#/Vol] 1.45 10*3/uL 0.83-4.51 [facility] Basophil percentageOrdered B y: Dmitriy Hardy on 01-20-2023 Basophils/100 WBC (Bld) 0.7 % 0-1 [facility] Bilirubin [Mass/Vol] 0.60 mg/dL 0.20-1.00 [facility] Comment on above: For patients on eltr ombopag therapy, use of Dimension [place] TBIL is not recommended. Chloride [Moles/Vol] 110 mmol/L 98-107 [facility] Cholesterol [Mass/Vol] 111 mg/dL <200 [facility] Comment on above: <200 mg/dL Desirable 200-240 mg/dL Borderline >240 mg/dL High Risk Eosinophils/100 WBC (Bld) 6.6 % 0-5 [facility] Glucose [Mass/Vol] 94 mg/dL 74-106 [facility] Neutrophils (Bld) [#/Vol] 4.7 10*3/uL 2.0-7.7 [facility] Neutrophils/100 WBC (Bld) 64.3 % 47-70 [facility] Potassium [Moles/Vol] 4.2 mmol/L 3.5-5.1 [facility] Protein [Mass/Vol] 7.0 g/dL 6.4-8.2 [facility] Sodium [Moles/Vol] 141 mmol/L 136-145 [facility] Triglyceride [Mass/Vol] 133 mg/dL <199 [facility] Comment on above: The drugs N-Acetylcy steine and Metamizole may falsely depress this assay.Serum Triglycerides Reference Interval Normal <150 mg/dL Borderline high 150 - 199 mg/dL High 200 - 499 mg/dL Very High > or = 500 mg/dL WBC (Bld) [#/Vol] 7.3 10*3/uL 4.4-11.0 [facility] Blood erythrocytes count (nu mber/volume)Ordered By: Dmitriy Hardy on 01-20-2023 RBC (Bld) [#/Vol] 4.31 10*6/uL 4.6-6.2 [facility] Blood hemoglobin measurement (mass/volume)Ordered By: Dmitriy Hardy on 01-20-2023 Hemoglobin (Bld) [Mass/Vol] 13.2 g/dL 13.0-16.5 [facility] Blood lymphocytes/100 leukoc ytesOrdered By: Dmitriy Hardy on 01-20-2023 Lymphocytes/100 WBC (Bld) 19.9 % 19-41 [facility] Blood monocytes/100 leukocyt esOrdered By: Dmitriy Hardy on 01-20-2023 Monocytes/100 WBC (Bld) 8.2 % 0-10 [facility] Blood platelet mean volumeOr dered By: Dmitriy Hardy on 01-20-2023 Platelet mean volume (Bld) [Entitic vol] 10.9 fL 6.2-12.0 [facility] Determination of erythrocyte mean corpuscular volume (MCV)Ordered By: Dmitriy Hardy on 01-20-2023 MCV (RBC) [Entitic vol] 93.7 fL 80-94 [facility] Hematocrit Auto (Bld) [Volum e fraction]Ordered By: Dmitriy Hardy on 01-20-2023 Hematocrit (Bld) [Volume fraction] 40.4 % 40-54 [facility] - Chemistry and C hemistry - challengeOrdered By: Dmitriy Hardy on 01-20-2023 ALP [Catalytic activity/Vol] 85 U/L 45-117 [facility] ALT [Catalytic activity/Vol] 17 U/L 16-61 [facility] CO2 [Moles/Vol] 28.0 mmol/L 21.0-32.0 [facility] Free T4 [Mass/Vol] 0.69 ng/dL 0.76-1.46 [facility] Globulin (S) [Mass/Vol] 3.4 g/dL 2.2-4.2 [facility] Urea nitrogen/Creatinine [Mass ratio] 20.3 mg/mg 10-20 [facility] - Hematology and Cell countsOrdered By: Dmitriy Hardy on 01-20-2023 Erythrocyte distribution width (RBC) [Entitic vol] 43.8 fL 35.1-43.9 [facility] Erythrocyte distribution width (RBC) [Ratio] 12.7 % 11.6-14.6 [facility] Immature granulocytes/100 WBC (Bld) 0.300 % 0.0-0.9 [facility] Comment on above: IG% - Immature Granu locytes (promyelocytes, myelocytes and metamyelocytes) > 1% indicates that a LEFT SHIFT is Present. MCH (RBC) [Entitic mass] 30.6 pg 27.0-32.0 [facility] Nucleated RBC/100 WBC (Bld) [Ratio] 0 % 0-5 [facility] MCHC Auto (RBC) [Mass/Vol]Or dered By: Dmitriy Hardy on 01-20-2023 MCHC (RBC) [Mass/Vol] 32.7 g/dL 32-36 [facility] No Panel InformationOrdered By: Dmitriy Hardy on 01-20-2023 Estimated GFR (MDRD) Amer 61 mL/min >60 [facility] Comment on above: GFR Calc Estimated GFR (MDRD) Non-Af Amer 50 mL/min >60 [facility] Comment on above: Non- GFR Calc Thyroid Stimulating Hormone (TSH) 4.41 uIU/mL 0.358-3.74 [facility] Platelets bldOrdered By: Dean Hardy on 01-20-2023 Platelets (Bld) [#/Vol] 170 10*3/uL 150-450 [facility] Serum or plasma albumin dulce urement (mass/volume)Ordered By: Dmitriy Hardy on 01-20-2023 Albumin [Mass/Vol] 3.6 g/dL 3.2-5.0 [facility] Serum or plasma albumin/glob ulin mass ratioOrdered By: Dmitriy Hardy on 01-20-2023 Albumin/Globulin [Mass ratio] 1.1 {ratio} 0.9-2.4 [facility] Serum or plasma calcium dulce urement (mass/volume)Ordered By: Dmitiry Hardy on 01-20-2023 Calcium [Mass/Vol] 9.0 mg/dL 8.5-10.1 [facility] Serum or plasma cholesterol in HDL measurement (mass/volume)Ordered By: Dmitriy Hardy on 01-20-2023 Cholesterol in HDL [Mass/Vol] 33 mg/dL >40 [facility] Comment on above: The drugs N-Acetylcy steine and Metamizole may falsely depress this assay. Reference Range HDL <40 mg/dL Low HDL Cholesterol HDL >or= 60 mg/dL High HDL Cholesterol Serum or plasma cholesterol in VLDL measurement (mass/volume)Ordered By: Dmitriy Hardy on 01-20-2023 Cholesterol in VLDL [Mass/Vol] 27 mg/dL 5-40 [facility] Serum or plasma creatinine m easurement (mass/volume)Ordered By: Dmitriy Hardy on 01-20-2023 Creatinine [Mass/Vol] 1.43 mg/dL 0.70-1.30 [facility] Comment on above: The validity of the calculated GFR & GFRAA in patients over 70 years has not been determined. Clinical correlation is essential. Serum or plasma low density lipoprotein (LDL) cholesterol measurement (mass/volume)Ordered By: Dmitriy Hardy on 01-20-2023 Cholesterol in LDL [Mass/Vol] 51 mg/dL 0-130 [facility] Serum or plasma urea nitroge n measurement (mass/volume)Ordered By: Dmitriy Hardy on 01-20-2023 Urea nitrogen [Mass/Vol] 29 mg/dL 7-18 [facility] Thin prep Papanicolaou smear with manual screeningOrdered By: Dmitriy Hardy on 01-20-2023 Thin prep Papanicolaou smear with manual screening 22 U/L 15-37 [facility] Thin prep Papanicolaou smear with manual screening 3 5-15 [facility] Absolute lymphocyte counton 06-24-2022 Lymphocytes Auto (Unsp spec) [#/Vol] 1.40 10*3/uL 0.83-4.51 [facility] Work Phone: [phone] Basophil percentageon 2021 Basophils/100 WBC (Bld) 0.9 % 0-1 [facility] Work Phone: Bilirubin [Mass/Vol] 0.70 mg/dL 0.20-1.00 [facility] Work Phone: Comment on above: For patients on eltr ombopag therapy, use of Dimension [place] TBIL is not recommended. Chloride [Moles/Vol] 103 mmol/L 98-107 [facility] Work Phone: Cholesterol [Mass/Vol] 116 mg/dL <200 [facility] Work Phone: Comment on above: <200 mg/dL Desirable 200-240 mg/dL Borderline >240 mg/dL High Risk Eosinophils/100 WBC (Bld) 6.9 % 0-5 [facility] Work Phone: Glucose [Mass/Vol] 80 mg/dL 74-106 [facility] Work Phone: Neutrophils (Bld) [#/Vol] 4.3 10*3/uL 2.0-7.7 [facility] Work Phone: Neutrophils/100 WBC (Bld) 61.6 % 47-70 [facility] Work Phone: Potassium [Moles/Vol] 4.5 mmol/L 3.5-5.1 [facility] Work Phone: [phone] Protein [Mass/Vol] 6.9 g/dL 6.4-8.2 [facility] Work Phone: Sodium [Moles/Vol] 139 mmol/L 136-145 [facility] Work Phone: [phone] Triglyceride [Mass/Vol] 101 mg/dL <199 [facility] Work Phone: Comment on above: The drugs N-Acetylcy steine and Metamizole may falsely depress this assay.Serum Triglycerides Reference Interval Normal <150 mg/dL Borderline high 150 - 199 mg/dL High 200 - 499 mg/dL Very High > or = 500 mg/dL WBC (Bld) [#/Vol] 6.9 10*3/uL 4.4-11.0 [facility] Work Phone: Blood erythrocytes count (nu mber/volume)on 06-24-2022 RBC (Bld) [#/Vol] 4.44 10*6/uL 4.6-6.2 [facility] Work Phone: Blood hemoglobin measurement (mass/volume)on 06-24-2022 Hemoglobin (Bld) [Mass/Vol] 13.8 g/dL 13.0-16.5 [facility] Work Phone: Blood lymphocytes/100 leukoc yteson 06-24-2022 Lymphocytes/100 WBC (Bld) 20.2 % 19-41 [facility] Work Phone: Blood monocytes/100 leukocyt eson 06-24-2022 Monocytes/100 WBC (Bld) 9.5 % 0-10 [facility] Work Phone: Blood platelet mean volumeon 06-24-2022 Platelet mean volume (Bld) [Entitic vol] 10.7 fL 6.2-12.0 [facility] Work Phone: Determination of erythrocyte mean corpuscular volume (MCV)on 06-24-2022 MCV (RBC) [Entitic vol] 93.7 fL 80-94 [facility] Work Phone: Hematocrit Auto (Bld) [Volum e fraction]on 06-24-2022 Hematocrit (Bld) [Volume fraction] 41.6 % 40-54 [facility] Work Phone: Laboratory - Chemistry and C hemistry - challengeon 06-24-2022 ALP [Catalytic activity/Vol] 89 U/L 45-117 [facility] Work Phone: ALT [Catalytic activity/Vol] 22 U/L 16-61 [facility] Work Phone: CO2 [Moles/Vol] 30.0 mmol/L 21.0-32.0 [facility] Work Phone: Free T4 [Mass/Vol] 0.86 ng/dL 0.76-1.46 [facility] Work Phone: Globulin (S) [Mass/Vol] 3.3 g/dL 2.2-4.2 [facility] Work Phone: Urea nitrogen/Creatinine [Mass ratio] 24.0 mg/mg 10-20 [facility] Work Phone: Laboratory - Hematology and Cell countson 06-24-2022 Erythrocyte distribution width (RBC) [Entitic vol] 43.9 fL 35.1-43.9 [facility] Work Phone: Erythrocyte distribution width (RBC) [Ratio] 12.7 % 11.6-14.6 [facility] Work Phone: Immature granulocytes/100 WBC (Bld) 0.900 % 0.0-0.9 [facility] Work Phone: Comment on above: IG% - Immature Granu locytes (promyelocytes, myelocytes and metamyelocytes) > 1% indicates that a LEFT SHIFT is Present. MCH (RBC) [Entitic mass] 31.1 pg 27.0-32.0 [facility] Work Phone: Nucleated RBC/100 WBC (Bld) [Ratio] 0 % 0-5 [facility] Work Phone: MCHC Auto (RBC) [Mass/Vol]on 06-24-2022 MCHC (RBC) [Mass/Vol] 33.2 g/dL 32-36 [facility] Work Phone: No Panel Informationon 06-24 Estimated GFR (MDRD) Amer 88 mL/min >60 [facility] Work Phone: Comment on above: GFR Calc Estimated GFR (MDRD) Non-Af Amer 72 mL/min >60 [facility] Work Phone: Comment on above: Non- GFR Calc Thyroid Stimulating Hormone (TSH) 8.36 uIU/mL 0.358-3.74 [facility] Work Phone: Platelets bldon 06-24-2022 Platelets (Bld) [#/Vol] 178 10*3/uL 150-450 [facility] Work Phone: Serum or plasma albumin dulce urement (mass/volume)on 06-24-2022 Albumin [Mass/Vol] 3.6 g/dL 3.2-5.0 [facility] Work Phone: Serum or plasma albumin/glob ulin mass ratioon 06-24-2022 Albumin/Globulin [Mass ratio] 1.1 {ratio} 0.9-2.4 [facility] Work Phone: Serum or plasma calcium dulce urement (mass/volume)on 06-24-2022 Calcium [Mass/Vol] 9.0 mg/dL 8.5-10.1 [facility] Work Phone: Serum or plasma cholesterol in HDL measurement (mass/volume)on 06-24-2022 Cholesterol in HDL [Mass/Vol] 34 mg/dL >40 [facility] Work Phone: Comment on above: The drugs N-Acetylcy steine and Metamizole may falsely depress this assay. Reference Range HDL <40 mg/dL Low HDL Cholesterol HDL >or= 60 mg/dL High HDL Cholesterol Serum or plasma cholesterol in VLDL measurement (mass/volume)on 06-24-2022 Cholesterol in VLDL [Mass/Vol] 20 mg/dL 5-40 [facility] Work Phone: Serum or plasma creatinine m easurement (mass/volume)on 06-24-2022 Creatinine [Mass/Vol] 1.04 mg/dL 0.70-1.30 [facility] Work Phone: Comment on above: The validity of the calculated GFR & GFRAA in patients over 70 years has not been determined. Clinical correlation is essential. Serum or plasma low density lipoprotein (LDL) cholesterol measurement (mass/volume)on 06-24-2022 Cholesterol in LDL [Mass/Vol] 62 mg/dL 0-130 [facility] Work Phone: Serum or plasma urea nitroge n measurement (mass/volume)on 06-24-2022 Urea nitrogen [Mass/Vol] 25 mg/dL 7-18 [facility] Work Phone: Thin prep Papanicolaou smear with manual screeningon 06-24-2022 Thin prep Papanicolaou smear with manual screening 19 U/L 15-37 [facility] Work Phone: Thin prep Papanicolaou smear with manual screening 6 5-15 [facility] Work Phone: Laboratory - Microbiology an d Antimicrobial susceptibilityon 04-03-2022 SARS-CoV-2 (COVID-19) RNA MARY+probe Ql (Unsp spec) Not detected Not Detect [facility] Work Phone: Comment on above: Normal Reference Ran ge: Not DetectedMethod:(RT-PCR) real-time reverse transcriptase PCRLuminex CORAL Instrument*The Food and Drug Administration (FDA) has issued an Emergency Use Authorization (EAU) for the TheTake SARS-CoV-2 Assay for the rapid detection of [...] Sign Date: 02/28/2022 11:29:50 AM Ordering Provider: EULOGIO MONET [facility] ([place]) Absolute lymphocyte counton 12-25-2021 Lymphocytes Auto (Unsp spec) [#/Vol] 1.31 10*3/uL 0.83-4.51 [facility] Work Phone: Basophil percentageon 2021 Basophils/100 WBC (Bld) 0.5 % 0-1 [facility] Work Phone: Bilirubin [Mass/Vol] 0.80 mg/dL 0.20-1.00 [facility] Work Phone: Comment on above: For patients on eltr ombopag therapy, use of Dimension [place] TBIL is not recommended. Chloride [Moles/Vol] 108 mmol/L 98-107 [facility] Work Phone: Cholesterol [Mass/Vol] 100 mg/dL <200 [facility] Work Phone: Comment on above: <200 mg/dL Desirable 200-240 mg/dL Borderline >240 mg/dL High Risk Eosinophils/100 WBC (Bld) 4.9 % 0-5 [facility] Work Phone: Glucose [Mass/Vol] 93 mg/dL 74-106 [facility] Work Phone: Neutrophils (Bld) [#/Vol] 3.6 10*3/uL 2.0-7.7 [facility] Work Phone: [phone] Neutrophils/100 WBC (Bld) 61.7 % 47-70 [facility] Work Phone: [phone] Potassium [Moles/Vol] 4.2 mmol/L 3.5-5.1 [facility] Work Phone: [phone] Protein [Mass/Vol] 7.0 g/dL 6.4-8.2 [facility] Work Phone: Sodium [Moles/Vol] 139 mmol/L 136-145 [facility] Work Phone: Triglyceride [Mass/Vol] 58 mg/dL <199 [facility] Work Phone: Comment on above: The drugs N-Acetylcy steine and Metamizole may falsely depress this assay.Serum Triglycerides Reference Interval Normal <150 mg/dL Borderline high 150 - 199 mg/dL High 200 - 499 mg/dL Very High > or = 500 mg/dL WBC (Bld) [#/Vol] 5.9 10*3/uL 4.4-11.0 [facility] Work Phone: Blood erythrocytes count (nu mber/volume)on 12-25-2021 RBC (Bld) [#/Vol] 4.38 10*6/uL 4.6-6.2 [facility] Work Phone: Blood hemoglobin measurement (mass/volume)on 12-25-2021 Hemoglobin (Bld) [Mass/Vol] 13.2 g/dL 13.0-16.5 [facility] Work Phone: Blood lymphocytes/100 leukoc yteson 12-25-2021 Lymphocytes/100 WBC (Bld) 22.3 % 19-41 [facility] Work Phone: Blood monocytes/100 leukocyt eson 12-25-2021 Monocytes/100 WBC (Bld) 10.1 % 0-10 [facility] Work Phone: Blood platelet mean volumeon 12-25-2021 Platelet mean volume (Bld) [Entitic vol] 10.8 fL 6.2-12.0 [facility] Work Phone: Determination of erythrocyte mean corpuscular volume (MCV)on 12-25-2021 MCV (RBC) [Entitic vol] 91.8 fL 80-94 [facility] Work Phone: Hematocrit Auto (Bld) [Volum e fraction]on 12-25-2021 Hematocrit (Bld) [Volume fraction] 40.2 % 40-54 [facility] Work Phone: Laboratory - Chemistry and C hemistry - challengeon 12-25-2021 ALP [Catalytic activity/Vol] 90 U/L 45-117 [facility] Work Phone: ALT [Catalytic activity/Vol] 16 U/L 16-61 [facility] Work Phone: CO2 [Moles/Vol] 26.0 mmol/L 21.0-32.0 [facility] Work Phone: Free T4 [Mass/Vol] 0.85 ng/dL 0.76-1.46 [facility] Work Phone: Globulin (S) [Mass/Vol] 3.2 g/dL 2.2-4.2 [facility] Work Phone: Urea nitrogen/Creatinine [Mass ratio] 32.1 mg/mg 10-20 [facility] Work Phone: Laboratory - Hematology and Cell countson 12-25-2021 Erythrocyte distribution width (RBC) [Entitic vol] 43.0 fL 35.1-43.9 [facility] Work Phone: Erythrocyte distribution width (RBC) [Ratio] 12.7 % 11.6-14.6 [facility] Work Phone: Immature granulocytes/100 WBC (Bld) 0.500 % 0.0-0.9 [facility] Work Phone: Comment on above: IG% - Immature Granu locytes (promyelocytes, myelocytes and metamyelocytes) > 1% indicates that a LEFT SHIFT is Present. MCH (RBC) [Entitic mass] 30.1 pg 27.0-32.0 [facility] Work Phone: Nucleated RBC/100 WBC (Bld) [Ratio] 0 % 0-5 [facility] Work Phone: MCHC Auto (RBC) [Mass/Vol]on 12-25-2021 MCHC (RBC) [Mass/Vol] 32.8 g/dL 32-36 [facility] Work Phone: No Panel Informationon 12-25 Estimated GFR (MDRD) Amer 83 mL/min >60 [facility] Work Phone: Comment on above: GFR Calc Estimated GFR (MDRD) Non-Af Amer 69 mL/min >60 [facility] Work Phone: Comment on above: Non- GFR Calc Thyroid Stimulating Hormone (TSH) 3.98 uIU/mL 0.358-3.74 [facility] Work Phone: Platelets bldon 12-25-2021 Platelets (Bld) [#/Vol] 176 10*3/uL 150-450 [facility] Work Phone: Serum or plasma albumin dulce urement (mass/volume)on 12-25-2021 Albumin [Mass/Vol] 3.8 g/dL 3.2-5.0 [facility] Work Phone: Serum or plasma albumin/glob ulin mass ratioon 12-25-2021 Albumin/Globulin [Mass ratio] 1.2 {ratio} 0.9-2.4 [facility] Work Phone: Serum or plasma calcium dulce urement (mass/volume)on 12-25-2021 Calcium [Mass/Vol] 8.8 mg/dL 8.5-10.1 [facility] Work Phone: Serum or plasma cholesterol in HDL measurement (mass/volume)on 12-25-2021 Cholesterol in HDL [Mass/Vol] 37 mg/dL >40 [facility] Work Phone: Comment on above: The drugs N-Acetylcy steine and Metamizole may falsely depress this assay. Reference Range HDL <40 mg/dL Low HDL Cholesterol HDL >or= 60 mg/dL High HDL Cholesterol Serum or plasma cholesterol in VLDL measurement (mass/volume)on 12-25-2021 Cholesterol in VLDL [Mass/Vol] 12 mg/dL 5-40 [facility] Work Phone: Serum or plasma creatinine m easurement (mass/volume)on 12-25-2021 Creatinine [Mass/Vol] 1.09 mg/dL 0.70-1.30 [facility] Work Phone: Comment on above: The validity of the calculated GFR & GFRAA in patients over 70 years has not been determined. Clinical correlation is essential. Serum or plasma low density lipoprotein (LDL) cholesterol measurement (mass/volume)on 12-25-2021 Cholesterol in LDL [Mass/Vol] 51 mg/dL 0-130 [facility] Work Phone: Serum or plasma urea nitroge n measurement (mass/volume)on 12-25-2021 Urea nitrogen [Mass/Vol] 35 mg/dL 7-18 [facility] Work Phone: Thin prep Papanicolaou smear with manual screeningon 12-25-2021 Thin prep Papanicolaou smear with manual screening 16 U/L 15-37 [facility] Work Phone: Thin prep Papanicolaou smear with manual screening 5 5-15 [facility] Work Phone: Absolute lymphocyte counton 10-01-2021 Lymphocytes Auto (Unsp spec) [#/Vol] 1.39 10*3/uL 0.83-4.51 [facility] Work Phone: Basophil percentageon 2021 Basophils/100 WBC (Bld) 0.8 % 0-1 [facility] Work Phone: Bilirubin [Mass/Vol] 0.90 mg/dL 0.20-1.00 [facility] Work Phone: Comment on above: For patients on eltr ombopag therapy, use of Dimension [place] TBIL is not recommended. Chloride [Moles/Vol] 105 mmol/L 98-107 [facility] Work Phone: Cholesterol [Mass/Vol] 232 mg/dL <200 [facility] Work Phone: Comment on above: <200 mg/dL Desirable 200-240 mg/dL Borderline >240 mg/dL High Risk Eosinophils/100 WBC (Bld) 5.0 % 0-5 [facility] Work Phone: Glucose [Mass/Vol] 101 mg/dL 74-106 [facility] Work Phone: Comment on above: Fasting Glucose resu lt from 100 to 125 mg/dL suggests IMPAIRED HOMEOSTASIS per A.D.A. criteria. Neutrophils (Bld) [#/Vol] 3.9 10*3/uL 2.0-7.7 [facility] Work Phone: Neutrophils/100 WBC (Bld) 62.0 % 47-70 [facility] Work Phone: Potassium [Moles/Vol] 4.6 mmol/L 3.5-5.1 [facility] Work Phone: Protein [Mass/Vol] 7.8 g/dL 6.4-8.2 [facility] Work Phone: Sodium [Moles/Vol] 138 mmol/L 136-145 [facility] Work Phone: Triglyceride [Mass/Vol] 141 mg/dL <199 [facility] Work Phone: Comment on above: The drugs N-Acetylcy steine and Metamizole may falsely depress this assay.Serum Triglycerides Reference Interval Normal <150 mg/dL Borderline high 150 - 199 mg/dL High 200 - 499 mg/dL Very High > or = 500 mg/dL WBC (Bld) [#/Vol] 6.4 10*3/uL 4.4-11.0 [facility] Work Phone: Blood erythrocytes count (nu mber/volume)on 10-01-2021 RBC (Bld) [#/Vol] 4.85 10*6/uL 4.6-6.2 [facility] Work Phone: Blood hemoglobin measurement (mass/volume)on 10-01-2021 Hemoglobin (Bld) [Mass/Vol] 14.4 g/dL 13.0-16.5 [facility] Work Phone: Blood lymphocytes/100 leukoc yteson 10-01-2021 Lymphocytes/100 WBC (Bld) 21.9 % 19-41 [facility] Work Phone: Blood monocytes/100 leukocyt eson 10-01-2021 Monocytes/100 WBC (Bld) 9.4 % 0-10 [facility] Work Phone: Blood platelet mean volumeon 10-01-2021 Platelet mean volume (Bld) [Entitic vol] 10.7 fL 6.2-12.0 [facility] Work Phone: Determination of erythrocyte mean corpuscular volume (MCV)on 10-01-2021 MCV (RBC) [Entitic vol] 92.6 fL 80-94 [facility] Work Phone: Hematocrit Auto (Bld) [Volum e fraction]on 10-01-2021 Hematocrit (Bld) [Volume fraction] 44.9 % 40-54 [facility] Work Phone: Laboratory - Chemistry and C hemistry - challengeon 10-01-2021 ALP [Catalytic activity/Vol] 100 U/L 45-117 [facility] Work Phone: ALT [Catalytic activity/Vol] 17 U/L 16-61 [facility] Work Phone: CO2 [Moles/Vol] 30.0 mmol/L 21.0-32.0 [facility] Work Phone: Globulin (S) [Mass/Vol] 3.9 g/dL 2.2-4.2 [facility] Work Phone: Urea nitrogen/Creatinine [Mass ratio] 20.5 mg/mg 10-20 [facility] Work Phone: Laboratory - Hematology and Cell countson 10-01-2021 Erythrocyte distribution width (RBC) [Entitic vol] 44.7 fL 35.1-43.9 [facility] Work Phone: Erythrocyte distribution width (RBC) [Ratio] 13.2 % 11.6-14.6 [facility] Work Phone: Immature granulocytes/100 WBC (Bld) 0.900 % 0.0-0.9 [facility] Work Phone: Comment on above: IG% - Immature Granu locytes (promyelocytes, myelocytes and metamyelocytes) > 1% indicates that a LEFT SHIFT is Present. MCH (RBC) [Entitic mass] 29.7 pg 27.0-32.0 [facility] Work Phone: Nucleated RBC/100 WBC (Bld) [Ratio] 0 % 0-5 [facility] Work Phone: MCHC Auto (RBC) [Mass/Vol]on 10-01-2021 MCHC (RBC) [Mass/Vol] 32.1 g/dL 32-36 [facility] Work Phone: No Panel Informationon 10-01 Estimated GFR (MDRD) Amer 81 mL/min >60 [facility] Work Phone: Comment on above: GFR Calc Estimated GFR (MDRD) Non-Af Amer 67 mL/min >60 [facility] Work Phone: Comment on above: Non- GFR Calc Thyroglobulin Antibody 8.3 IU/mL 0.0-0.9 [facility] Work Phone: Comment on above: Thyroglobulin Antibo dy measured by [employer] Platelets bldon 10-01-2021 Platelets (Bld) [#/Vol] 197 10*3/uL 150-450 [facility] Work Phone: Serum or plasma albumin dulce urement (mass/volume)on 10-01-2021 Albumin [Mass/Vol] 3.9 g/dL 3.2-5.0 [facility] Work Phone: Serum or plasma albumin/glob ulin mass ratioon 10-01-2021 Albumin/Globulin [Mass ratio] 1.0 {ratio} 0.9-2.4 [facility] Work Phone: Serum or plasma calcium dulce urement (mass/volume)on 10-01-2021 Calcium [Mass/Vol] 9.1 mg/dL 8.5-10.1 [facility] Work Phone: Serum or plasma cholesterol in HDL measurement (mass/volume)on 10-01-2021 Cholesterol in HDL [Mass/Vol] 32 mg/dL >40 [facility] Work Phone: Comment on above: The drugs N-Acetylcy steine and Metamizole may falsely depress this assay. Reference Range HDL <40 mg/dL Low HDL Cholesterol HDL >or= 60 mg/dL High HDL Cholesterol Serum or plasma cholesterol in VLDL measurement (mass/volume)on 10-01-2021 Cholesterol in VLDL [Mass/Vol] 28 mg/dL 5-40 [facility] Work Phone: Serum or plasma creatinine m easurement (mass/volume)on 10-01-2021 Creatinine [Mass/Vol] 1.12 mg/dL 0.70-1.30 [facility] Work Phone: Comment on above: The validity of the calculated GFR & GFRAA in patients over 70 years has not been determined. Clinical correlation is essential. Serum or plasma low density lipoprotein (LDL) cholesterol measurement (mass/volume)on 10-01-2021 Cholesterol in LDL [Mass/Vol] 172 mg/dL 0-130 [facility] Work Phone: Serum or plasma thyroperoxid ase antibody assay (units/volume)on 10-01-2021 TPO Ab Qn 337 [IU]/mL 0-34 [facility] Work Phone: Comment on above: Performed at: [facility] [id number] [place], [place] [id number] Director: Tuan Johnson PhD, Phone: [phone] at: [facility] [id number] [place], [place] [id number] Director: Ok Whitfield MD, Phone: [phone] Serum or plasma urea nitroge n measurement (mass/volume)on 10-01-2021 Urea nitrogen [Mass/Vol] 23 mg/dL 7-18 [facility] Work Phone: Thin prep Papanicolaou smear with manual screeningon 10-01-2021 Thin prep Papanicolaou smear with manual screening 17 U/L 15-37 [facility] Work Phone: Thin prep Papanicolaou smear with manual screening 3 5-15 [facility] Work Phone: Thyroglobulin measurement by radioimmunoassay (JASSI)on 10-01-2021 Thyroglobulin Ab JASSI Qn (S) 6.2 ng/mL . [facility] Work Phone: Comment on above: This test was develo ped and its performance characteristicsdetermined by [email or web address]. It has not been cleared or approvedby [...] Vital Sign Value Performing Clinician Storm kovacs 01-18-2025 13:52-0400 Body height 172.[address] Dmitriy Hardy MD Work Phone: [facility] 01-18-2025 13:52-0400 Body mass index (BMI) [Ratio] 23.4 kg/m2 Dr. Dmitriy Hardy MD Work Phone: [facility] 01-18-2025 13:52-0400 Body weight 69.[address] Dmitriy Hardy MD Work Phone: [facility] 01-18-2025 13:52-0400 Diastolic blood pressure 69 mm[Hg] Dr. Dmitriy Hardy MD Work Phone: [facility] 01-18-2025 13:52-0400 Heart rate 47 /min Dr. Dmitriy Hardy MD Work Phone: [facility] 01-18-2025 13:52-0400 Respiratory rate 16 /min Dr. Dmitriy Hardy MD Work Phone: [facility] 01-18-2025 13:52-0400 Systolic blood pressure 128 mm[Hg] Dr. Dmitriy Hardy MD Work Phone: [facility] 07-03-2024 09:58-0500 Body height 172.[address] Dmitriy Hardy MD Work Phone: [facility] 07-03-2024 09:58-0500 Body mass index (BMI) [Ratio] 23.8 kg/m2 Dr. Dmitriy Hardy MD Work Phone: [facility] 07-03-2024 09:58-0500 Body temperature 98.1 [degF] Dr. Dmitriy Hardy MD Work Phone: [facility] 07-03-2024 09:58-0500 Body weight 70.[address] Dmitriy Hardy MD Work Phone: [facility] 07-03-2024 09:58-0500 Diastolic blood pressure 58 mm[Hg] Dr. Dmitriy Hardy MD Work Phone: [facility] 07-03-2024 09:58-0500 Heart rate 50 /min Dr. Dmitriy Hardy MD Work Phone: [facility] 07-03-2024 09:58-0500 Respiratory rate 16 /min Dr. Dmitriy Hardy MD Work Phone: [facility] 07-03-2024 09:58-0500 SaO2% (BldA) [Mass fraction] 96 % Dr. Dmitriy Hardy MD Work Phone: [facility] 07-03-2024 09:58-0500 Systolic blood pressure 120 mm[Hg] Dr. Dmitriy Hardy MD Work Phone: [facility] Encounters Encounter Date Encounter Type Care Provider Facility Start: 01-23-2025 Non-patient / Non-visit Dr. Radha [facility]STORENA [facility] Start: 01-23-2025 End: 01-23-[address] Dmitriy Hardy MD Work Phone: -[facility] Start: 01-23-2025 End: 01-23-[address] Dmitriy Hardy MD -Cardiovascular Services Work Phone: Start: 01-23-2025 End: 01-23-2025 ambulatory Dmitriy Hardy Facility:[facility] Start: 01-18-2025 End: 01-18-[address] Dmitriy Hardy MD Work Phone: -Laboratory Start: 01-18-2025 End: 01-18-[address] Jose E Gary MD -Laboratory Work Phone: Start: 01-18-2025 End: 01-18-[address] Jose E Gary MD -[facility] Work Phone: Start: 01-18-2025 End: 01-18-[address] Jose E Gary MD [facility] Start: 01-18-2025 End: 01-18-[address] Dmitriy Hardy MD Work Phone: -[facility] Start: 01-18-2025 End: 01-18-2025 ambulatory Jose E Gary Facility:[facility] Start: 01-17-[address] Sunny Hardy MD Work Phone: [facility] Start: 01-13-2025 End: 01-13-[address] Dmitriy Hardy MD Work Phone: -[facility] Start: 01-13-2025 End: 01-13-[address] Zina Petit MD -[facility] Work Phone: Start: 01-13-2025 End: 01-13-2025 ambulatory Zina Petit Facility:[facility] Start: 12-29-2024 End: 12-29-2024 ambulatory ZINA PETIT MD Facility:[facility] Start: 12-29-2024 End: 12-29-2024 Patient encounter procedure ZINA PETIT MD [facility] Start: 10-11-2024 End: 10-11-[address] Dmitriy Hardy MD Work Phone: [facility] Work Phone: Start: 10-11-2024 End: 10-11-[address] Dmitriy Hardy MD -[facility] Start: 10-11-2024 End: 10-11-2024 ambulatory Dmitriy Hardy Facility:[facility] Start: 07-03-2024 End: 07-03-2024 Patient encounter procedure Dmitriy BERMUDEZ -[facility] Work Phone: Start: 07-03-2024 End: 07-03-2024 ambulatory Dmitriy Hardy [place] [place] Start: 04-07-2024 End: 04-07-2024 ambulatory Dmitriy Hardy Facility:[facility] Start: 06-24-2023 End: 06-24-2023 ambulatory [facility] Work Phone: Start: 06-24-2023 End: 06-24-2023 Patient encounter procedure [facility] Start: 04-03-2023 End: 04-03-2023 Patient encounter procedure [facility] Work Phone: Start: 01-20-2023 End: 01-20-2023 ambulatory [facility] Work Phone: Start: 01-20-2023 End: 01-20-2023 Patient encounter procedure [facility] Start: 06-24-2022 End: 06-24-2022 ambulatory [facility] Work Phone: Start: 06-24-2022 End: 06-24-2022 Patient encounter procedure [facility] Start: 04-03-2022 End: 04-03-[address] Dmitriy Hardy Work Phone: [facility] Work Phone: Start: 04-03-2022 End: 04-03-[address] [facility] Start: 02-27-2022 End: 02-27-[address] EULOGIO MONET [facility] Start: 01-24-2022 Non-patient / Non-visit Dr. Manisha Hardy Work Phone: [facility] Start: 01-24-2022 End: 01-24-[address] Dmitriy Hardy Work Phone: [facility]-Cardiovascula r Services Start: 12-25-2021 End: 12-25-2021 Patient encounter procedure [facility] Start: 10-08-2021 End: 10-08-2021 [facility] Start: 10-01-2021 End: 10-01-2021 Patient encounter procedure [facility] Procedures Date Procedure Procedure Detail Performing Clinician Start: 10-08-2021 Plain x-ray of wrist Immunizations Immunization Date Immunization Notes Care Provider Fa cility 10-01-2020 Covid (Moderna) [facility] 09-03-2020 Covid ([facility]) [facility] Payers Date Payer Category Payer Self-pay [id number] 2024 [facility] [id number] 2022 Medicare [id number] 2022 Private Health Insurance [id number] 2003 Medicare [id number] 1938 Unknown [id number] Self-pay [id number] Unknown [id number] Unknown [id number] 2.16.8 [id number] Unknown [id number] 2.16.8 [id number] Unknown [id number] 2.16.8 [id number] Unknown [id number] 2.16.8 [id number] Unknown [id number] 2.16.8 [id number] Unknown [id number] 2.16.8 [id number] Unknown [id number] 2.16.8 [id number] Unknown [id number] 2.16.8 [id number] Social History Date Type Detail Facility [facility] Work Phone: Start: 1940 Sex Assigned At Male [facility] Tobacco smoking status [facility] Work Phone: Start: 02-27-2022 End: 10-17-2024 Sex Male (finding) [facility] Start: 01-17-2025 Tobacco smoking stat [facility] Ex-smoker (finding) [facility] Evaluation note 01-18-2025 Note Date & Type Note Facility 01-18-2025 Evaluation note Diagnosis Onset Date Resolution Bradycardia acute January 18 1:49pm Encounter for pre-operative examination acute January 18, 2025 1:49pm [facility] Work Phone: Evaluation note 07-03-2024 Note Date & Type Note Facility 07-03-2024 Evaluation note Diagnosis Onset Date Resolution URI (upper respiratory infection) acute July 03 9:50am [facility] Work Phone: Evaluation + Plan note Note Date & Type Note Facility Evaluation + Plan note No data available for this section [facility] Evaluation note Note Date & Type Note Facility Evaluation note No assessment information availa [facility] Work Phone: Hospital Discharge instructions Note Date & Type Note Facility Hospital Discharge instructions No data available for this section [facility] Progress note Note Date & Type Note Facility Progress note No data available for this section [facility] Reason for referral (narrative) Note Date & Type Note Facility Reason for referral (narrative) No reason for referral information available [facility] Work Phone: Chief Complaint and Reason for Visit Chief Complaint BILATERAL WRIST PAIN Chief Complaint BILATERAL WRIST PAIN SOB Chief Complaint SOB Chief Complaint EORDER Chief Complaint Admit Date HEAD CONGESTION July 03, 2024 9:50am Reason for Visit Admit Date URI (upper respiratory infection) Dece er 2023 9:50am Chief Complaint Admit Date PRE-OP/ WASC January 13, 2025 7:32 am BRADYCARDIA/SURG CLEARANCE ([facility]) Ju ly 2024 1:49pm Chief Complaint Admit Date PRE-OP/ WASC January 13, 2025 7:32 am BRADYCARDIA/SURG CLEARANCE ([facility]) Ju ly 2024 1:49pm INT LAB ORDERS January 18, 2025 2:51 pm Reason for Visit Admit Date Bradycardia January 18, 2025 1:49 pm Encounter for pre-operative examination January 18, 2025 1:49pm Chief Complaint Admit Date PRE-OP/ WASC January 13, 2025 7:32 am BRADYCARDIA/SURG CLEARANCE ([facility]) Ju ly 2024 1:49pm INT LAB ORDERS January 18, 2025 2:51 pm BRADYCARDIA January 23, 2025 10:4 6am Summary Purpose Family History No Family History Records Found Relationship Condition Age at Onset Recorded Date/T meghann father Cardiac disease Unknown Leukemia Unknown mother Dementia Unknown Advance Directives No Advanced Directives Records FoundNo [...] may be documented in an alternate section Care Team (unrecognized sect ion and content) Care Team Personnel Name: DMITRIY HARDY MD Member Role: Primary Care Physician Address: Address: [address] [place] [address]. [address] [id number] (unrecognized sect ion and content) No Status Records FoundNo Status Records FoundNo Status Records Found INFORMATION SOURCE (unrecogn ized section and content) DATE CREATED AUTHOR 03/02/2022 [facility] ([place] DATE CREATED AUTHOR AUTHOR'S ORGANIZ ATION 01/01/2025 [facility] DATE CREATED AUTHOR AUTHOR'S ORGANIZ ATION 01/28/2025 [facility] Care Teams (unrecognized sec tion and content) Team Status: Active Member Role Status Dates Dr. Dmitriy Petit MD Family Provider Active Dr. Dmitriy Hardy MD Primary Care Provider Active Team Status: Inactive Member Role Status Dates Dr. Dmitriy Hardy MD Primary Care Provider, Attend ing Provider Active Team Status: Inactive Member Role Status Dates Dr. Dmitriy Hardy MD Primary Care Provider Active AIDAN Flood Attending Provider Active Team Status: Inactive Member [...] July 03, 2024 End: July 03, 2024 Dmitriy Armstrong NP [employer] Attending Provider Active S tart: July 03, [...] October 11, 2024 End: October 11, 2024 Team Status: Active Member Role/Relationship Status Dates Dr. Dmitriy Hardy MD Primary Care Provider Active Team Status: Inactive Member Role/Relationship Status Dates Dr. Dmitriy Hardy MD Primary Care Provider Active Start: October 11, 2024 End: October 11, 2024 Dr. Dmitriy Hardy MD Attending Provider Active Start: October 11, 2024 End: October 11, 2024 Dr. Dmitriy Hardy MD Referring Provider Active Start: October 11, 2024 End: October 11, 2024 Team Status: Active Member Role/Relationship Status Dates Dr. Dmitriy Hardy MD Primary Care Provider Active Start: January 13, 2025 Dr. Zina Petit MD Attending Provider Active Start: January 13, 2025 Dr. Zina Petit MD Referring Provider Active Start: January 13, 2025 Team Status: Inactive Member Role/Relationship Status Dates Dr. Dmitriy Hardy MD Primary Care Provider Active Start: January 18, 2025 End: January 18, 2025 Dr. Dmitriy Hardy MD Referring Provider Active Start: January 18, 2025 End: January 18, 2025 Dr. Jose E Gary MD Attending Provider Active S tart: January 18, 2025 End: January 18, 2025 Team Status: Inactive Member Role/Relationship Status Dates Dr. Dmitriy Hardy MD Primary Care Provider Active Start: January 13, 2025 End: January 13, 2025 Dr. Zina Petit MD Attending Provider Active Start: January 13, 2025 End: January 13, 2025 Dr. Zina Petit MD Referring Provider Active Start: January 13, 2025 End: January 13, 2025 Team Status: Active Member Role/Relationship Status Dates Dr. Dmitriy Hardy MD Primary Care Provider Active Start: January 18, 2025 Dr. Jose E Gary MD Attending Provider Active S tart: January 18, 2025 Dr. Jose E Gary MD Referring Provider Active S tart: January 18, 2025 Team Status: Inactive Member Role/Relationship Status Dates Dr. Dmitriy Hardy MD Primary Care Provider Active Start: January 18, 2025 End: January 18, 2025 Dr. Jose E Gary MD Attending Provider Active S tart: January 18, 2025 End: January 18, 2025 Dr. Jose E Gary MD Referring Provider Active S tart: January 18, 2025 End: January 18, 2025 Team Status: Active Member Role/Relationship Status Dates Dr. Dmitriy Hardy MD Primary Care Provider Active Start: January 23, 2025 Dr. Dmitriy Hardy MD Attending Provider Active Start: January 23, 2025 Dr. Dmitriy Hardy MD Referring Provider Active Start: January 23, 2025 Team Status: Active Member Role/Relationship Status Dates Dr. Dmitriy Hardy MD Primary Care Provider Active Start: January 23, 2025 Dr. Jose E Gary MD Attending Provider Active S tart: January 23, 2025 Team Status: Inactive Member Role/Relationship Status Dates Dr. Dmitriy Hardy MD Primary Care Provider Active Start: January 23, 2025 End: January 23, 2025 Dr. Dmitriy Hardy MD Attending Provider Active Start: January 23, 2025 End: January 23, 2025 Dr. Dmitriy Hardy MD Referring Provider Active Start: January 23, 2025 End: January 23, 2025 FOR RECORDS PERTAINING TO PATIENTS WHO ARE [...] BE BASED ON THE PRIMARY CLINICAL RECORDS. [facility] [employer], [facility]. provides no warranty or guarantee of the accuracy or completeness of information in this document.
== END | disposition home or self-care (01) ==
LOC: CVS 10:53
PROVIDERS: PCP Family Medicine; Referring Provider Physician Assistant; Visit Provider Physician Assistant
DX: R22.41 Localized swelling, mass and lump, right lower limb (principal)
CPT/HCPCS: 93971

== ENCOUNTER → 2025-04-11 | Outpatient (CLI) | payer MEDICARE, OTHER, SELFPAY ==
[2025-04-11 12:09] LABS: Hematocrit 37.4 % (40-54); Hemoglobin 12.5 g/dL (13.0-16.5); Immature Granulocytes Count 0.110 X10^3/uL (0.0-0.0); Mean Corp Hgb Conc 33.4 g/dL (32-36); Mean Corpuscular Volume 93.7 fL (80-94); Mean Platelet Vol. 10.8 fl (6.2-12.0); NRBC Flagged by Analyzer 0 % (0-5); Platelet Count 203 K/mm3 (150-450); RBC Distribution Width CV 13.4 % (11.6-14.6); RBC Distribution Width SD 45.9 fl (35.1-43.9); Red Blood Count 3.99 M/mm3 (4.6-6.2); White Blood Count 8.9 K/mm3 (4.4-11.0)
[2025-04-11 12:43] LABS: AST(SGOT) 25 U/L (<=37); Alanine Aminotransfer ALT/SGPT 18 U/L (<=46); Albumin, Serum 4.3 g/dL (3.4-4.8); Alkaline Phosphatase 91 U/L (40-129); Anion Gap 10 (5-15); BUN 33 mg/dL (4-19); BUN/Creat Ratio 28.8 RATIO (10-20); Calcium,Total 9.7 mg/dL (7.6-11.0); Carbon Dioxide 25.9 mmol/L (21.0-32.0); Chloride 103 mmol/L (98-108); Globulin 2.7 g/dL (2.2-4.2); Glucose 93 mg/dL (70-99); Magnesium 2.3 mg/dL (1.5-2.2); Potassium 4.3 mmol/L (3.3-5.1)
[2025-04-11 13:37] LABS: Cholesterol 126 mg/dL (<=200); Low Density Lipoprotein Calc. 66 mg/dL; Triglycerides 98 mg/dL; Very Low Density Lipoprotein 20 mg/dL (5-40); cholesterol:hdl ratio screen 3.10
[2025-04-12 11:17] LABS: Ferritin 361 ng/mL (37-417); Iron 55 ug/dL (65-175); Iron Binding Capacity,Total 279 ug/dL (250-450); Iron Binding Capacity,Unsat 224 ug/dL (228-428); Vitamin B12 447 pg/mL (180-914)
== END | disposition home or self-care (01) ==
LOC: MFPLAB 09:52
PROVIDERS: PCP Family Medicine; Visit Provider Family Medicine
DX: R00.1 Bradycardia, unspecified (principal); D64.9 Anemia, unspecified; E03.8 Other specified hypothyroidism; E78.00 Pure hypercholesterolemia, unspecified
CPT/HCPCS: 36415; 80053; 80061; 82607; 82728; 83540; 83550; 83735; 84439; 84443; 85025

== ENCOUNTER → 2025-06-23 | Outpatient (CLI) | payer MEDICARE, OTHER, SELFPAY ==
--- OUTSIDE RECORDS SUMMARY | 2025-06-23 08:02 | XMS RPT_ITS | CCD ---
Author Organization [facility] CliniSyar Care Team Providers Care Night Patrol Inspector Name Role Phone Dr. Dmitriy Hardy Primary Care Provider Dr. Jose E Gary Attending Provider DMITRIY HARDY MD Primary Care Physician Dr. Dmitriy Hardy MD Primary Care Provider Dr. Dmitriy Hardy MD Referring Provider [phone] [facility] PERSONAL FINANCIAL ADVISOR-C, Dmitriy Saez Attending Provider Dr. Dmitriy Hardy MD Attending Provider ZINA PETIT MD Attending Unavailable DMITRIY HARDY MD Primary Care Unavailable Dr. Dmitriy Hardy MD Primary Care Provider Dr. Dmitriy Hardy MD Referring Provider [phone] Dr. Zina Petit MD Attending Provider [phone] Zina Petit MD Referring Provider [phone] Jose E Gary MD Attending Provider [phone] Jose E Gary MD Referring Provider [phone] Dmitriy Hardy MD Primary Care Provider [phone] Dr. Dmitriy Hardy MD Referring Provider Dr. Dmitriy Hardy MD Attending Provider [phone] Raysa Jiang Attending Provider Raysa Jiang Referring Provider Dmitriy Hardy Referring Unavailable Dmitriy Hardy Attending Unavailable Dmitriy Hardy Primary Care Unavailable Raysa Jiang Attending Unavailable Dmitriy Hardy Primary Care Unavailable Raysa Jiang Referring Unavailable Dmitriy aHrdy Attending Unavailable Dmitriy Hardy Primary Care Unavailable Dmitriy Hardy Attending Unavailable Dmitriy Hardy Primary Care Unavailable Dmitriy Hardy Referring Unavailable Dmitriy Hardy Primary Care Unavailable Abdirahman, [place] Referring Unavailable Abdirahman, Jose E Attending Unavailable Dmitriy Hardy Primary Care Unavailable Abdirahman, Jose E Attending Unavailable Dmitriy Hardy Primary Care Unavailable Dmitriy Hardy Referring Unavailable Abdirahman, [place] Attending Unavailable Nathaniel DEL VALLE, Dmitriy Saez Attending Unavailable Dmitriy Hardy Primary Care Unavailable Dmitriy Hardy Referring Unavailable Zina Petit Referring Unavailable Zina Petit Attending Unavailable Dmitriy Hardy Primary Care Unavailable Allergies Allergy Classification Reported Allergen(s) Allergy Type Date of Onset Reaction(s) Facility (5 sources) Meperidine Drug Allergy 01-18-2025 Vomiting [facility] (1 source) Meperidine Drug Allergy 01-18-2025 [facility] Repository Medications Current Medications Medication Drug Class(es) Dates Sig (Normalized) Sig (Original) glucosamine sulfate 500 mg oral tablet (5 sources) Start: 01-17-2025 take 1 tablet by mouth once daily Glucosamine Sulfate (Glucosamine) 500 mg tablet Active 500 mg PO daily January 17, 2025 12:00am administer with a meal Lactobacillus Combination No.9 (Adult 50 Plus Probiotic) 4 billion cell capsule (5 sources) Start: 01-17-2025 take 4 capsules by mouth once daily Lactobacillus Combination No.9 (Adult 50 Plus Probiotic) 4 billion cell capsule Active 4000 NMA PO daily January 17, 2025 12:00am administer with a meal latanoprost 0.05 mg/ml ophthalmic solution (5 sources) Prostaglandin Analog Start: 01-17-2025 Latanoprost 0.005 % drops Active 1 NMA OPHTHALMIC EVERY EVENING January 17, 2025 12:00am levothyroxine sodium 0.075 mg oral tablet (5 sources) l-Thyroxine Start: 01-17-2025 take 1 tablet by mouth once daily Levothyroxine 75 mcg tablet Active 75 ug PO daily January 17, 2025 12:00am polyethylene glycol 3350 54629 mg powder for oral solution (5 sources) Osmotic Laxative Start: 01-17-2025 Polyethylene Glycol 3350 (Miralax) 17 gram/dose powder Active 4 g PO daily January 17, 2025 12:00am rosuvastatin calcium 10 mg oral tablet (5 sources) HMG-CoA Reductase Inhibitor Start: 01-17-2025 take 1 tablet by mouth once daily Rosuvastatin 10 mg tablet Active 10 mg PO daily January 17, 2025 12:00am Vitamins A,C,E-Uxfk-Qbnppe (Preservision Areds) 4,296 mcg-226 mg-90 mg capsule (5 sources) Start: 01-17-2025 Vitamins A,C,W-Rqfx-Fwuuph (Preservision Areds) 4,296 mcg-226 mg-90 mg capsule Active 1 NMA PO TWICE A DAY January 17, 2025 12:00am Completed/Discontinued Medications Medication Drug Class(es) Dates Sig (Normalized) Sig (Original) azithromycin 250 mg oral tablet (6 sources) Macrolide Antimicrobial Start: 07-03-2024 End: 01-17-2025 Azithromycin (Zithromax Z-Rai) 250 mg tablet Discontinued 0 PO .COMPLEX 6 0 July 03, 2024 1:00am January 17, 2025 8:10am For 250 mg dose pack: take 500 mg today (day 1), then 250 mg for 4 days (days 2-5) PO Problems Active Problems Problem Classification Problem Date Documented Da te Episodic/Chronic Cardiac dysrhythmias (10 sources) Bradycardia; Translations: [Bradycardia, unspecified] Onset: 05-03-2025 01-17-2025 Episodic Other lower respiratory disease (5 sources) Dyspnea on exertion; Translations: [Shortness of breath] 01-17-2025 Episodic Other skin disorders (1 source) Localized swelling, mass and lump, right lower limb; Translations: [Localized swelling, mass and lump, right lower limb] Onset: 02-22-2025 Episodic Thyroid disorders (1 source) Other specified hypothyroidism; Translations: [Other specified hypothyroidism] Onset: 10-17-2024 Chronic Past or Other Problems Problem Classification Problem Date Documented Da te Episodic/Chronic Other lower respiratory disease (1 source) Shortness of breath; Translations: [Shortness of breath] Onset: 01-27-2025 Episodic Other upper respiratory infections (8 sources) Upper respiratory infection; Translations: [Acute upper respiratory infection, unspecified] Onset: 07-03-2024 07-03-2024 Episodic Results Test Name Value Interpretation Reference Range Facility Ferritinon 04-12-2025 Ferritin [Mass/Vol] 361 ng/mL Normal 37-417 [facility] Comment on above: Order Comment: ADD O N B12,NOE,IBC TO 04/11(THU) Order Date: 04/11/25 Order Info: 86-1 - CMP Order Info: [id number] - LIPID Order Info: [id number] - MG Order Info: 3 - TSH Order Info: [id number] - T4F Performed By: #### L 503.0106, L503.6550, L503.6030 #### [facility] [address] [place], [place], [id number] Iron+Iron Binding Capacityon 04-12-2025 Iron [Mass/Vol] 55 ug/dL Low 65-175 [facility] Comment on above: Order Comment: ADD O N B12,NOE,IBC TO 04/11(THU) Order Date: 04/11/25 Order Info: 785- - CMP Order Info: - LIPID Order Info: [id number] - MG Order Info: [id number] - TSH Order Info: 3024-01 - T4F Performed By: #### L 503.0106, L503.6550, L503.6030 #### [facility] [address] [place], [place], [phone] IRON SATURATION 19.7 Normal 9-55 [facility] Comment on above: Order Comment: ADD O N B12,NOE,IBC TO 04/11(THU) Order Date: 04/11/25 Order Info: 785-1 - CMP Order Info: [id number] - LIPID Order Info: [id number] - MG Order Info: 3 - TSH Order Info: 3024-01 - T4F Performed By: #### L 503.0106, L503.6550, L503.6030 #### [facility] [address] [place], [address] TIBC 279 ug/dL Normal 250-450 [facility] Comment on above: Order Comment: ADD O N B12,NOE,IBC TO 04/11(THU) Order Date: 04/11/25 Order Info: 86-1 - CMP Order Info: [id number] - LIPID Order Info: [id number] - MG Order Info: 3 - TSH Order Info: 3024-01 - T4F Performed By: #### L 503.0106, L503.6550, L503.6030 #### [facility] [address] [place], [address] UIBC 224 ug/dL Low 228-428 [facility] Comment on above: Order Comment: ADD O N B12,NOE,IBC TO 04/11(THU) Order Date: 04/11/25 Order Info: [id number] - CMP Order Info: - LIPID Order Info: [id number] - MG Order Info: [id number] - TSH Order Info: 3024-01 - T4F Performed By: #### L 503.0106, L503.6550, L503.6030 #### [facility] [address] [place], [address] Vitamin B12on 04-12-2025 Cobalamin (Vitamin B12) [Mass/Vol] 447 pg/mL Normal 180-914 [facility] Comment on above: Order Comment: ADD O N B12,NOE,IBC TO 04/11(THU) Order Date: 04/11/25 Order Info: 785-07 - CMP Order Info: [id number] - LIPID Order Info: [id number] - MG Order Info: 3 - TSH Order Info: 3024-01 - T4F Performed By: #### L 503.0106, L503.6550, L503.6030 #### [facility] [address] [place], [address] CBC W/Diff, Automatedon 10-0 Absolute Lymph 1.36 X10 3/uL Normal 0.83-4.51 [facility] Comment on above: Order Comment: Order Date: 04/11/25Order Info: 0184-1 - CBCD Performed By: #### L 501.5200, L100.0100, L500.4050, L501.9520, L506.0400, L500.4100 ####[facility] [address] [place], [address] Absolute Neut 6.3 X10 3/uL Normal 2.0-7.7 [facility] Comment on above: Order Comment: Order Date: 04/11/25Order Info: 0184- - CBCD Performed By: #### L 501.5200, L100.0100, L500.4050, L501.9520, L506.0400, L500.4100 ####[facility] [address] [place], [address] Basophils/100 WBC (Bld) 1.0 % Normal 0-1 [facility] Comment on above: Order Comment: Order Date: 04/11/25Order Info: 0184-1 - CBCD Performed By: #### L 501.5200, L100.0100, L500.4050, L501.9520, L506.0400, L500.4100 ####[facility] [address] [place], [address] Eosinophils/100 WBC (Bld) 3.7 % Normal 0-5 [facility] Comment on above: Order Comment: Order Date: 04/11/25Order Info: 0184-1 - CBCD Performed By: #### L 501.5200, L100.0100, L500.4050, L501.9520, L506.0400, L500.4100 ####[facility] [address] [place], [address] Erythrocyte distribution width (RBC) [Ratio] 13.4 % Normal 11.6-14.6 [facility] Comment on above: Order Comment: Order Date: 04/11/25Order Info: 0184-1 - CBCD Performed By: #### L 501.5200, L100.0100, L500.4050, L501.9520, L506.0400, L500.4100 ####[facility] [address] [place], [address] Hematocrit (Bld) [Volume fraction] 37.4 % Low 40-54 [facility] Comment on above: Order Comment: Order Date: 04/11/25Order Info: 0184-1 - CBCD Performed By: #### L 501.5200, L100.0100, L500.4050, L501.9520, L506.0400, L500.4100 ####[facility] [address] [place], [address] Hemoglobin (Bld) [Mass/Vol] 12.5 g/dL Low 13.0-16.5 [facility] Comment on above: Order Comment: Order Date: 04/11/25Order Info: 0184-1 - CBCD Performed By: #### L 501.5200, L100.0100, L500.4050, L501.9520, L506.0400, L500.4100 ####[facility] [address] [place], [address] IG% 1.200 High 0.0-0.9 [facility] Comment on above: Order Comment: Order Date: 04/11/25Order Info: 0184-1 - CBCD Result Comment: IG% - Immature Granulocytes (promyelocytes, myelocytes and metamyelocytes) > 1% indicates that a LEFT SHIFT is Present. Performed By: #### L 501.5200, L100.0100, L500.4050, L501.9520, L506.0400, L500.4100 ####[facility] [address] [place], [address] Lymphocytes/100 WBC (Bld) 15.3 % Low 19-41 [facility] Comment on above: Order Comment: Order Date: 04/11/25Order Info: 0184-1 - CBCD Performed By: #### L 501.5200, L100.0100, L500.4050, L501.9520, L506.0400, L500.4100 ####[facility] [address] [place], [address] MCH (RBC) [Entitic mass] 31.3 pg Normal 27.0-32.0 [facility] Comment on above: Order Comment: Order Date: 04/11/25Order Info: 0184-1 - CBCD Performed By: #### L 501.5200, L100.0100, L500.4050, L501.9520, L506.0400, L500.4100 ####[facility] [address] [place], [address] MCHC (RBC) [Mass/Vol] 33.4 g/dL Normal 32-36 [facility] Comment on above: Order Comment: Order Date: 04/11/25Order Info: 0184-1 - CBCD Performed By: #### L 501.5200, L100.0100, L500.4050, L501.9520, L506.0400, L500.4100 ####[facility] [address] [place], [address] MCV (RBC) [Entitic vol] 93.7 fL Normal 80-94 [facility] Comment on above: Order Comment: Order Date: 04/11/25Order Info: 0184-1 - CBCD Performed By: #### L 501.5200, L100.0100, L500.4050, L501.9520, L506.0400, L500.4100 ####[facility] [address] [place], [address] Monocytes/100 WBC (Bld) 7.9 % Normal 0-10 [facility] Comment on above: Order Comment: Order Date: 04/11/25Order Info: 0184-1 - CBCD Performed By: #### L 501.5200, L100.0100, L500.4050, L501.9520, L506.0400, L500.4100 ####[facility] [address] [place], [address] Neutrophils/100 WBC (Bld) 70.9 % High 47-70 [facility] Comment on above: Order Comment: Order Date: 04/11/25Order Info: 0184-1 - CBCD Performed By: #### L 501.5200, L100.0100, L500.4050, L501.9520, L506.0400, L500.4100 ####[facility] [address] [place], [address] Nucleated RBC (Bld) [#/Vol] 0 10*3/uL Normal 0-5 [facility] Comment on above: Order Comment: Order Date: 04/11/25Order Info: 0184-1 - CBCD Performed By: #### L 501.5200, L100.0100, L500.4050, L501.9520, L506.0400, L500.4100 ####[facility] [address] [place], [address] Platelet mean volume (Bld) [Entitic vol] 10.8 fL Normal 6.2-12.0 [facility] Comment on above: Order Comment: Order Date: 04/11/25Order Info: 0184-1 - CBCD Performed By: #### L 501.5200, L100.0100, L500.4050, L501.9520, L506.0400, L500.4100 ####[facility] [address] [place], [address] Platelets (Bld) [#/Vol] 203 10*3/uL Normal 150-450 [facility] Comment on above: Order Comment: Order Date: 04/11/25Order Info: 0184-1 - CBCD Performed By: #### L 501.5200, L100.0100, L500.4050, L501.9520, L506.0400, L500.4100 ####[facility] [address] [place], [address] RBC (Bld) [#/Vol] 3.99 10*6/uL Low 4.6-6.2 [facility] Comment on above: Order Comment: Order Date: 04/11/25Order Info: 0184-1 - CBCD Performed By: #### L 501.5200, L100.0100, L500.4050, L501.9520, L506.0400, L500.4100 ####[facility] [address] [place], [address] RDW SD 45.9 fl High 35.1-43.9 [facility] Comment on above: Order Comment: Order Date: 04/11/25Order Info: [id number] - CBCD Performed By: #### L 501.5200, L100.0100, L500.4050, L501.9520, L506.0400, L500.4100 ####[facility] [address] [place], [address] WBC (Bld) [#/Vol] 8.9 10*3/uL Normal 4.4-11.0 [facility] Comment on above: Order Comment: Order Date: 04/11/25Order Info: [id number] - CBCD Performed By: #### L 501.5200, L100.0100, L500.4050, L501.9520, L506.0400, L500.4100 ####[facility] [address] [place], [address] Comprehensive Metabolic Prof ilon 04-11-2025 Albumin [Mass/Vol] 4.3 g/dL Normal 3.4-4.8 [facility] Comment on above: Order Comment: Order Date: 04/11/25Order Info: [id number] - CMPOrder Info: [id number] - LIPIDOrder Info: [id number] - MGOrder Info: [id number] - TSHOrder Info: 3024-7 - T4F Performed By: #### L 501.5200, L100.0100, L500.4050, L501.9520, L506.0400, L500.4100 ####[facility] [address] [place], [address] Albumin/Globulin [Mass ratio] 1.6 {ratio} Normal 0.9-2.4 [facility] Comment on above: Order Comment: Order Date: 04/11/25Order Info: 785-1 - CMPOrder Info: - LIPIDOrder Info: [id number] - MGOrder Info: 3 - TSHOrder Info: [id number] - T4F Performed By: #### L 501.5200, L100.0100, L500.4050, L501.9520, L506.0400, L500.4100 ####[facility] [address] [place], [address] ALK PHOS 91 U/L Normal 40-129 [facility] Comment on above: Order Comment: Order Date: 04/11/25Order Info: 785-1 - CMPOrder Info: [id number] - LIPIDOrder Info: [id number] - MGOrder Info: 3 - TSHOrder Info: 3024-7 - T4F Performed By: #### L 501.5200, L100.0100, L500.4050, L501.9520, L506.0400, L500.4100 ####[facility] [address] [place], [address] ALT [Catalytic activity/Vol] 18 U/L Normal <=46 [facility] Comment on above: Order Comment: Order Date: 04/11/25Order Info: 86-1 - CMPOrder Info: [id number] - LIPIDOrder Info: [id number] - MGOrder Info: 3 - TSHOrder Info: 3024-7 - T4F Performed By: #### L 501.5200, L100.0100, L500.4050, L501.9520, L506.0400, L500.4100 ####[facility] [address] [place], [address] AST [Catalytic activity/Vol] 25 U/L Normal <=37 [facility] Comment on above: Order Comment: Order Date: 04/11/25Order Info: [id number] - CMPOrder Info: [id number] - LIPIDOrder Info: [id number] - MGOrder Info: [id number] - TSHOrder Info: 3024-7 - T4F Performed By: #### L 501.5200, L100.0100, L500.4050, L501.9520, L506.0400, L500.4100 ####[facility] [address] [place], [place], [address] Bilirubin [Mass/Vol] 0.50 mg/dL Normal 0.00-1.30 [facility] Comment on above: Order Comment: Order Date: 04/11/25Order Info: [id number] - CMPOrder Info: [id number] - LIPIDOrder Info: [id number] - MGOrder Info: [id number] - TSHOrder Info: 3024-7 - T4F Performed By: #### L 501.5200, L100.0100, L500.4050, L501.9520, L506.0400, L500.4100 ####[facility] [address] [place], [address] BUN/CRE 28.8 RATIO High 10-20 [facility] Comment on above: Order Comment: Order Date: 04/11/25Order Info: [id number] - CMPOrder Info: [id number] - LIPIDOrder Info: [id number] - MGOrder Info: [id number] - TSHOrder Info: 3024-7 - T4F Performed By: #### L 501.5200, L100.0100, L500.4050, L501.9520, L506.0400, L500.4100 ####[facility] [address] [place], [address] Calcium [Mass/Vol] 9.7 mg/dL Normal 7.6-11.0 [facility] Comment on above: Order Comment: Order Date: 04/11/25Order Info: [id number] - CMPOrder Info: [id number] - LIPIDOrder Info: [id number] - MGOrder Info: [id number] - TSHOrder Info: 3024-7 - T4F Performed By: #### L 501.5200, L100.0100, L500.4050, L501.9520, L506.0400, L500.4100 ####[facility] [address] [place], [address] Chloride [Moles/Vol] 103 mmol/L Normal 98-108 [facility] Comment on above: Order Comment: Order Date: 04/11/25Order Info: [id number] - CMPOrder Info: [id number] - LIPIDOrder Info: [id number] - MGOrder Info: [id number] - TSHOrder Info: 3024-7 - T4F Performed By: #### L 501.5200, L100.0100, L500.4050, L501.9520, L506.0400, L500.4100 ####[facility] [address] [place], [address] CO2 [Moles/Vol] 25.9 mmol/L Normal 21.0-32.0 [facility] Comment on above: Order Comment: Order Date: 04/11/25Order Info: [id number] - CMPOrder Info: [id number] - LIPIDOrder Info: [id number] - MGOrder Info: [id number] - TSHOrder Info: 3024-7 - T4F Performed By: #### L 501.5200, L100.0100, L500.4050, L501.9520, L506.0400, L500.4100 ####[facility] [address] [place], [address] Creatinine [Mass/Vol] 1.13 mg/dL Normal 0.70-1.20 [facility] Comment on above: Order Comment: Order Date: 04/11/25Order Info: 785-1 - CMPOrder Info: [id number] - LIPIDOrder Info: [id number] - MGOrder Info: [id number] - TSHOrder Info: 3024-7 - T4F Performed By: #### L 501.5200, L100.0100, L500.4050, L501.9520, L506.0400, L500.4100 ####[facility] [address] [place], [place], [address] GAP 10 Normal 5-15 [facility] Comment on above: Order Comment: Order Date: 04/11/25Order Info: 785- - CMPOrder Info: [id number] - LIPIDOrder Info: [id number] - MGOrder Info: 3 - TSHOrder Info: 3024-7 - T4F Performed By: #### L 501.5200, L100.0100, L500.4050, L501.9520, L506.0400, L500.4100 ####[facility] [address] [place], [place], [address] GFR/1.73 sq M.predicted among non-blacks MDRD (S/P/Bld) [Vol rate/Area] 63 mL/min/{1.73_m2} Normal >60 [facility] Comment on above: Order Comment: Order Date: 04/11/25Order Info: 785-1 - CMPOrder Info: [id number] - LIPIDOrder Info: [id number] - MGOrder Info: [id number] - TSHOrder Info: 3024-7 - T4F Result Comment: mL/m in/1.73m2 CKD-EPI Creatinine Equation (2020) Performed By: #### L 501.5200, L100.0100, L500.4050, L501.9520, L506.0400, L500.4100 ####[facility] [address] [place], [address] Globulin (S) [Mass/Vol] 2.7 g/dL Normal 2.2-4.2 [facility] Comment on above: Order Comment: Order Date: 04/11/25Order Info: 86-1 - CMPOrder Info: [id number] - LIPIDOrder Info: [id number] - MGOrder Info: 301-3 - TSHOrder Info: 3024-7 - T4F Performed By: #### L 501.5200, L100.0100, L500.4050, L501.9520, L506.0400, L500.4100 ####[facility] [address] [place], [address] Glucose [Mass/Vol] 93 mg/dL Normal 70-99 [facility] Comment on above: Order Comment: Order Date: 04/11/25Order Info: 785- - CMPOrder Info: - LIPIDOrder Info: [id number] - MGOrder Info: 3 - TSHOrder Info: 3024-7 - T4F Performed By: #### L 501.5200, L100.0100, L500.4050, L501.9520, L506.0400, L500.4100 ####[facility] [address] [place], [address] Potassium [Moles/Vol] 4.3 mmol/L Normal 3.3-5.1 [facility] Comment on above: Order Comment: Order Date: 04/11/25Order Info: 86-1 - CMPOrder Info: [id number] - LIPIDOrder Info: [id number] - MGOrder Info: [id number] - TSHOrder Info: 3024-7 - T4F Performed By: #### L 501.5200, L100.0100, L500.4050, L501.9520, L506.0400, L500.4100 ####[facility] [address] [place], [address] Sodium [Moles/Vol] 138 mmol/L Normal 133-145 [facility] Comment on above: Order Comment: Order Date: 04/11/25Order Info: [id number] - CMPOrder Info: [id number] - LIPIDOrder Info: [id number] - MGOrder Info: [id number] - TSHOrder Info: 3024-7 - T4F Performed By: #### L 501.5200, L100.0100, L500.4050, L501.9520, L506.0400, L500.4100 ####[facility] [address] [place], [address] T PROT 7.0 g/dL Normal 5.9-8.4 [facility] Comment on above: Order Comment: Order Date: 04/11/25Order Info: 86-1 - CMPOrder Info: [id number] - LIPIDOrder Info: [id number] - MGOrder Info: [id number] - TSHOrder Info: 3024-7 - T4F Performed By: #### L 501.5200, L100.0100, L500.4050, L501.9520, L506.0400, L500.4100 ####[facility] [address] [place], [place], [address] Urea nitrogen [Mass/Vol] 33 mg/dL High 4-19 [facility] Comment on above: Order Comment: Order Date: 04/11/25Order Info: [id number] - CMPOrder Info: [id number] - LIPIDOrder Info: [id number] - MGOrder Info: [id number] - TSHOrder Info: 3024-7 - T4F Performed By: #### L 501.5200, L100.0100, L500.4050, L501.9520, L506.0400, L500.4100 ####[facility] [address] [place], [address] Lipid Profileon 04-11-2025 CHOL:HDL 3.10 Normal [facility] Comment on above: Order Comment: Order Date: 04/11/25Order Info: [id number] - CMPOrder Info: [id number] - LIPIDOrder Info: [id number] - MGOrder Info: 3 - TSHOrder Info: 7 - T4F Performed By: #### L 501.5200, L100.0100, L500.4050, L501.9520, L506.0400, L500.4100 ####[facility] [id number] [place], [place], [id number] Cholesterol [Mass/Vol] 126 mg/dL Normal <=200 [facility] Comment on above: Order Comment: Order Date: 04/11/25Order Info: [id number] - CMPOrder Info: [id number] - LIPIDOrder Info: [id number] - MGOrder Info: [id number] - TSHOrder Info: [id number] - T4F Result Comment: Chol esterol level, Desirable <200 mg/dL Borderline high cholesterol 200-239 mg/dL High cholesterol >=240 mg/dL Recommendations of the NCEP Adult Treatment Panel for the following risk-cutoff thresholds for the [place] population. Performed By: #### L 501.5200, L100.0100, L500.4050, L501.9520, L506.0400, L500.4100 ####[facility] [id number] [place], [place], [id number] Cholesterol in HDL [Mass/Vol] 41 mg/dL Normal [facility] Comment on above: Order Comment: Order Date: 04/11/25Order Info: 07-1 - CMPOrder Info: [id number] - LIPIDOrder Info: [id number] - MGOrder Info: 3 - TSHOrder Info: 7 - T4F Result Comment: Raquel onal Cholesterol Education Program (NCEP) guidelines: <40 mg/dL: Low HDL-cholesterol (major risk factor for CHD) >= 60 mg/dL: High HDL-cholesterol (negative risk factor for CHD) HDL-cholesterol is affected by a number of factors, e.g. smoking, exercise, hormones, sex and age. Performed By: #### L 501.5200, L100.0100, L500.4050, L501.9520, L506.0400, L500.4100 ####[facility] [address] [place], [address] Cholesterol in LDL [Mass/Vol] 66 mg/dL Normal [facility] Comment on above: Order Comment: Order Date: 04/11/25Order Info: 86-1 - CMPOrder Info: [id number] - LIPIDOrder Info: [id number] - MGOrder Info: 3 - TSHOrder Info: 7 - T4F Result Comment: Bord ptrepx=470-434 mg/dL Higher Bffn=016 mg/dL or greater Friedwald Equation for LDL-C Performed By: #### L 501.5200, L100.0100, L500.4050, L501.9520, L506.0400, L500.4100 ####[facility] [address] [place], [address] Cholesterol in VLDL [Mass/Vol] 20 mg/dL Normal 5-40 [facility] Comment on above: Order Comment: Order Date: 04/11/25Order Info: [id number] - CMPOrder Info: - LIPIDOrder Info: [id number] - MGOrder Info: [id number] - TSHOrder Info: [id number] - T4F Performed By: #### L 501.5200, L100.0100, L500.4050, L501.9520, L506.0400, L500.4100 ####[facility] [address] [place], [address] Triglyceride [Mass/Vol] 98 mg/dL Normal [facility] Comment on above: Order Comment: Order Date: 04/11/25Order Info: [id number]- - CMPOrder Info: [id number] - LIPIDOrder Info: [id number] - MGOrder Info: [id number] - TSHOrder Info: 7 - T4F Result Comment: The drugs N-Acetylcysteine and Metamizole may falsely depress this assay. Normal range: <150 mg/dL Borderline High: 150-199 mg/dL High: 200-499 mg/dL Very High: >500 mg/dL Performed By: #### L 501.5200, L100.0100, L500.4050, L501.9520, L506.0400, L500.4100 ####[facility] [address] [place], [place], [id number] Magnesiumon 04-11-2025 Magnesium [Mass/Vol] 2.3 mg/dL High 1.5-2.2 [facility] Comment on above: Order Comment: Order Date: 04/11/25Order Info: [id number] - CMPOrder Info: [id number] - LIPIDOrder Info: [id number] - MGOrder Info: [id number] - TSHOrder Info: [id number] - T4F Performed By: #### L 501.5200, L100.0100, L500.4050, L501.9520, L506.0400, L500.4100 ####[facility] [address] [place], [place], [address] T4 Free Directon 04-11-2025 T4 FREE DIRECT 1.20 ng/dL Normal 0.76-1.46 [facility] Comment on above: Order Comment: Order Date: 04/11/25Order Info: [id number] - CMPOrder Info: - LIPIDOrder Info: [id number] - MGOrder Info: 6-3 - TSHOrder Info: 302-7 - T4F Performed By: #### L 501.5200, L100.0100, L500.4050, L501.9520, L506.0400, L500.4100 ####[facility] [address] [place], [place], [id number] Thyroid Stim Hormone (TSH)on 04-11-2025 TSH 4.030 uIU/mL Normal 0.300-4.20 0 [facility] Comment on above: Order Comment: Order Date: 04/11/25Order Info: 785- - CMPOrder Info: [id number] - LIPIDOrder Info: [id number] - MGOrder Info: [id number] - TSHOrder Info: 302-7 - T4F Performed By: #### L 501.5200, L100.0100, L500.4050, L501.9520, L506.0400, L500.4100 ####[facility] [address] [place], [address] Venous Duplex US, Unilateral on 02-15-2025 Venous Duplex US, Unilateral [facility] [address] [place] [address] Venous Duplex US, Unilateral 02/15/25 1106 MR#: [id number] Acct: [id number] Name: SP BABCOCK Rep #: [id number] : 1940 84 From: Lawrence Jiménez MD Attending Dr: KAY Lockwood Status: REG CL I Ordering Dr: Raysa Bbo Date: 02/15/25 Location: [facility] Sex: M C Admitted: Reason For Study Reason For Study: RLE Swelling RIGHT GSV is normal. CFV is compressible, spontaneous, phasic, competent and demonstrates normal augmentation. FV is compressible, spontaneous, phasic, competent and demonstrates normal augmentation. POP V is compressible, spontaneous, phasic, competent and demonstrates normal augmentation. T/P Trunk is compressible. PTV is compressible. RT PerV is compressible. Procedure This is a venous duplex using B-mode, color flow and spectral Doppler. Exam performed in department. The exam was diagnostic. A preliminary report was called and/or faxed to [facility]. VL/Venous Duplex US, Unilateral Interpretation Summary Deep veins of the right lower extremity are patent and compressible segmentally. There is no evidence of right lower extremity deep vein thrombosis. Valvular competence appears intact within the proximal deep venous system on the right . The right great saphenous vein appears patent and compressible segmentally. Ordering Physician: Raysa Bob Referring Physician: Dmitriy Hardy Performed By: Griffin Bauer, CELSOT 02/15/252018 Date Lawrence Jiménez MD CC: KAY Lockwood; Dr. Dmitriy Hardy MD Date Dictated: 02/15/25 1106 Date Transcribed: 02/15/252018 Beam Dyer Operator: Signed Normal [facility] Venous duplex ultrasound rep ortOrdered By: Lawrence Jiménez on 02-15-2025 US Vein [facility] [address] [place] [address] Venous Duplex US, Unilateral 02/15/251105 MR#: [id number] Acct: [id number] Name: SP BABCOCK Rep #:[id number] : 1940 84 From: Lawrence Jiménez MD Attending Dr: KAY Lockwood atus: REG CLI Ordering Dr: Raysa Bob Date : 02/15/25 Location: [facility] Sex: M C Admitted: Reason For Study Reason For Study: RLE Swelling RIGHT GSV is normal. CFV is compressible, spontaneous, phasic, competent and demonstrates normal augmentation. FV is compressible, spontaneous, phasic, competent and demonstrates normal augmentation. POP V is compressible, spontaneous, phasic, competent and demonstrates normal augmentation. T/P Trunk is compressible. PTV is compressible. RT PerV is compressible. Procedure This is a venous duplex using B-mode, color flow and spectral Doppler. Exam performed in department. The exam was diagnostic. A preliminary report was called and/or faxed to [facility]. VL/Venous Duplex US, Unilateral Interpretation Summary Deep veins of the right lower extremity are patent and compressible segmentally.There is no evidence of right lower extremity deep vein thrombosis. Valvular competence appears intact within the proximal deep venous system on the right . The right great saphenous vein appears patent and compressible segmentally. Ordering Physician: Raysa Bob Referring Physician: Dmitriy Hardy Performed By: Griffin Bauer Kwame 02/15/252018 Date _ Lawrence Jiménez MD CC: KAY Lockwood; Dr. Dmitriy Hardy MD ~ Date Dictated: 02/15/25 1106 Date Transcribed: 02/15/252018 Beam Dyer Operator: Signed [facility] Other Phone: Cardiovascular stress test r eportOrdered By: Jose E Gary on 01-23-2025 Study report [facility] [address] [place] [address] MR#: [id number] Acct: [id number] Name: SP BABCOCK Rep #: [id number] : 1940 84 From: Jose E Gary MD Primary Care: Dr. Dmitriy Hardy MD Sta tus: REG CLI Referring Dr: Dmitriy Hardy MD Sex: M C Stress Test Report Exercise stress test. 84-year-old male with chest pain Stress protocol: Resting EKG demonstrates sinus bradycardia with a rate of 45 bpm resting blood pressure is 07/27/1975 mmHg. The patient exercised according to the regular Rdoger protocol for a total duration of 3 [...] ~ Date Dictated: 01/23/251741 Date Transcribed: 01/23/251741 Beam Dyer Operator: CO Signed [facility] Work Phone: Echo Completeon 01-23-2025 Echo Complete [facility] [address] [place] [address] Echo Complete 01/23/25 1058 MR#: [id number] Acct: [id number] Name: SP BABCOCK Rep #: [id number] : 1940 84 From: Jose E Gary MD Attending Dr: Dr. Dmitriy Hardy MD Status: Breana JOAQUIN I Ordering Dr: Dmitriy Hardy MD Date: 01/23/25 Location: [facility] Sex: M C Admitted: Reason For [...] Referring Physician: Dmitriy Hardy Performed By: Bernadette Montoya, MATY 01/23/25 1436 Date Jose E Gary MD CC: Dr. Dmitriy Hardy MD Date Dictated: 01/23/25 105 Date Transcribed: 01/23/251435 Beam Dyer Operator: Signed Normal [facility] Echocardiogram study reportO rdered By: Jose E Gary on 01-23-2025 Study report [facility] [address] [place] [address] Echo Complete 01/23/251057 MR#: [id number] Acct: [id number] Name: SP BABCOCK Rep #:[id number] : 1940 84 From: Jose E Wing Attending Dr: Dr. Dmitriy Hardy MD Status: REG CLI Ordering Dr: Dmitriy Hardy MD Date: 01/23/25 Location: [facility] Sex: M C Admitted: Reason For [...] Dmitriy Hardy MD ~ Date Dictated: 01/23/25 105 Date Transcribed: 01/23/251435 Beam Dyer Operator: Signed [facility] Work Phone: Stress Reporton 01-23-2025 Stress Report [facility] [address] [place] [address] MR#: [id number] Acct: [id number] Name: SP BABCOCK Rep #: [id number] : 1940 84 From: Jose E Gary MD Primary Care: Dr. Dmitriy Hardy MD Status: REG CLI Referring Dr: Dmitriy Hardy MD [...] MD Date Dictated: 01/23/251741 Date Transcribed: 01/23/251741 Beam Dyer Operator: CO Signed Normal [facility] Cardiology Visit Reporton Cardiology Visit Report [facility] [address] [place] [address] OFFICE VISIT Date of Service: 01/18/25 MR#: [id number] Acct: [id number] Name: SP BABCOCK Rep #: [id number] : 1940 Provider: Dr. Jose E Gary MD Age/Sex: 84/M Location: [facility] [place] Status: Signed HPI HPI History of Present [...] room air Intake Visit Reasons: BRADYCARDIA/SURG CLEARANCE (HAYLEY) Verification Engineer Required: No Accompanied by: Significant Other Is [...] PO QDAY 01/17/25 01/18/25 Hi story vitamins A,C,C-ztwc-frfjhm 4,296 1 cap PO BID 01/17/25 01/18/25 [...] chest movemen (more content not included)... Normal [facility] T4 Total, Thyroxinon 025 T4 [Mass/Vol] 6.2 ug/dL Normal 4.5-12.1 [facility] Comment on above: Performed By: #### L 501.9520, L501.9310 #### [facility] [address] [place], [place], [id number] TSH DL <= 0.005 mIU/L QnOrde red By: Jose E Gary on 01-18-2025 TSH Qn 2.400 uIU/mL 0.300-4.20 0 [facility] Thyroid Stim Hormone (TSH)on 01-18-2025 TSH 2.400 uIU/mL Normal 0.300-4.20 0 [facility] Comment on above: Performed By: #### L 501.9520, L501.9310 #### [facility] [address] [place], [place], [address] ThyroxineOrdered By: Jose E orozco on 01-18-2025 T4 [Mass/Vol] 6.2 ug/dL 4.5-12.1 [facility] Absolute lymphocyte countOrd ered By: Zina Petit on 01-13-2025 Lymphocytes Auto (Unsp spec) [#/Vol] 1.23 10*3/uL 0.83-4.51 [facility] Absolute neutrophil countOrd ered By: Zina Petit on 01-13-2025 Neutrophils (Bld) [#/Vol] 4.4 10*3/uL 2.0-7.7 [facility] Albumin, Serumon 01-13-2025 Albumin [Mass/Vol] 4.1 g/dL Normal 3.4-4.8 [facility] Comment on above: Performed By: #### L 500.2500, L501.1800, L100.0100, L501.5200 ####[facility] [address] [place], [address] Anion gap in Serum or Plasma Ordered By: Zina Petit on 01-13-2025 Anion gap [Moles/Vol] 9 mmol/L 5-15 [facility] Automated lymphocyte count a s percentage of total leukocytesOrdered By: Zina Petit on 01-13-2025 Lymphocytes/100 WBC Auto (Unsp spec) 18.4 % Low 19-41 [facility] BUN/creatinine ratioOrdered By: Zina Petit on 01-13-2025 Urea nitrogen/Creatinine [Mass ratio] 22.8 mg/mg High 10-20 [facility] Basic Metabolic Profile (BMP )on 01-13-2025 BUN/CRE 22.8 RATIO High 10-20 [facility] Comment on above: Performed By: #### L 500.2500, L501.1800, L100.0100, L501.5200 ####[facility] [address] [place], [address] Calcium [Mass/Vol] 9.1 mg/dL Normal 7.6-11.0 [facility] Comment on above: Performed By: #### L 500.2500, L501.1800, L100.0100, L501.5200 ####[facility] [address] [place], [address] Chloride [Moles/Vol] 105 mmol/L Normal 98-108 [facility] Comment on above: Performed By: #### L 500.2500, L501.1800, L100.0100, L501.5200 ####[facility] [address] [place], [address] CO2 [Moles/Vol] 24.8 mmol/L Normal 21.0-32.0 [facility] Comment on above: Performed By: #### L 500.2500, L501.1800, L100.0100, L501.5200 ####[facility] [address] [place], [address] Creatinine [Mass/Vol] 1.19 mg/dL Normal 0.70-1.20 [facility] Comment on above: Performed By: #### L 500.2500, L501.1800, L100.0100, L501.5200 ####[facility] [address] [place], [address] GAP 9 Normal 5-15 [facility] Comment on above: Performed By: #### L 500.2500, L501.1800, L100.0100, L501.5200 ####[facility] [address] [place], [address] GFR/1.73 sq M.predicted among non-blacks MDRD (S/P/Bld) [Vol rate/Area] 59 mL/min/{1.73_m2} Low >60 [facility] Comment on above: Result Comment: mL/m in/1.73m2 CKD-EPI Creatinine Equation (2020) Performed By: #### L 500.2500, L501.1800, L100.0100, L501.5200 ####[facility] [address] [place], [address] Glucose [Mass/Vol] 95 mg/dL Normal 70-99 [facility] Comment on above: Performed By: #### L 500.2500, L501.1800, L100.0100, L501.5200 ####[facility] [address] [place], [address] Potassium [Moles/Vol] 4.2 mmol/L Normal 3.3-5.1 [facility] Comment on above: Performed By: #### L 500.2500, L501.1800, L100.0100, L501.5200 ####[facility] [address] [place], [address] Sodium [Moles/Vol] 139 mmol/L Normal 133-145 [facility] Comment on above: Performed By: #### L 500.2500, L501.1800, L100.0100, L501.5200 ####[facility] [address] [place], [address] Urea nitrogen [Mass/Vol] 27 mg/dL High 4-19 [facility] Comment on above: Performed By: #### L 500.2500, L501.1800, L100.0100, L501.5200 ####[facility] [address] [place], [address] Basophil percentageOrdered B y: Zina Petit on 01-13-2025 Basophils/100 WBC (Bld) 0.7 % 0-1 [facility] CBC W/Diff, Automatedon 01-03 Absolute Lymph 1.23 X10 3/uL Normal 0.83-4.51 [facility] Comment on above: Performed By: #### L 500.2500, L501.1800, L100.0100, L501.5200 ####[facility] [address] [place], [address] Absolute Neut 4.4 X10 3/uL Normal 2.0-7.7 [facility] Comment on above: Performed By: #### L 500.2500, L501.1800, L100.0100, L501.5200 ####[facility] [address] [place], [address] Basophils/100 WBC (Bld) 0.7 % Normal 0-1 [facility] Comment on above: Performed By: #### L 500.2500, L501.1800, L100.0100, L501.5200 ####[facility] [address] [place], [address] Eosinophils/100 WBC (Bld) 5.8 % High 0-5 [facility] Comment on above: Performed By: #### L 500.2500, L501.1800, L100.0100, L501.5200 ####[facility] [address] [place], [address] Erythrocyte distribution width (RBC) [Ratio] 13.0 % Normal 11.6-14.6 [facility] Comment on above: Performed By: #### L 500.2500, L501.1800, L100.0100, L501.5200 ####[facility] [address] [place], [address] Hematocrit (Bld) [Volume fraction] 39.0 % Low 40-54 [facility] Comment on above: Performed By: #### L 500.2500, L501.1800, L100.0100, L501.5200 ####[facility] [address] [place], [address] Hemoglobin (Bld) [Mass/Vol] 12.7 g/dL Low 13.0-16.5 [facility] Comment on above: Performed By: #### L 500.2500, L501.1800, L100.0100, L501.5200 ####[facility] [address] [place], [address] IG% 0.400 Normal 0.0-0.9 [facility] Comment on above: Result Comment: IG% - Immature Granulocytes (promyelocytes, myelocytes and metamyelocytes) > 1% indicates that a LEFT SHIFT is Present. Performed By: #### L 500.2500, L501.1800, L100.0100, L501.5200 ####[facility] [address] [place], [address] Lymphocytes/100 WBC (Bld) 18.4 % Low 19-41 [facility] Comment on above: Performed By: #### L 500.2500, L501.1800, L100.0100, L501.5200 ####[facility] [address] [place], [address] MCH (RBC) [Entitic mass] 30.4 pg Normal 27.0-32.0 [facility] Comment on above: Performed By: #### L 500.2500, L501.1800, L100.0100, L501.5200 ####[facility] [address] [place], [address] MCHC (RBC) [Mass/Vol] 32.6 g/dL Normal 32-36 [facility] Comment on above: Performed By: #### L 500.2500, L501.1800, L100.0100, L501.5200 ####[facility] [address] [place], [address] MCV (RBC) [Entitic vol] 93.3 fL Normal 80-94 [facility] Comment on above: Performed By: #### L 500.2500, L501.1800, L100.0100, L501.5200 ####[facility] [address] [place], [address] Monocytes/100 WBC (Bld) 8.5 % Normal 0-10 [facility] Comment on above: Performed By: #### L 500.2500, L501.1800, L100.0100, L501.5200 ####[facility] [address] [place], [address] Neutrophils/100 WBC (Bld) 66.2 % Normal 47-70 [facility] Comment on above: Performed By: #### L 500.2500, L501.1800, L100.0100, L501.5200 ####[facility] [address] [place], [address] Nucleated RBC (Bld) [#/Vol] 0 10*3/uL Normal 0-5 [facility] Comment on above: Performed By: #### L 500.2500, L501.1800, L100.0100, L501.5200 ####[facility] [address] [place], [address] Platelet mean volume (Bld) [Entitic vol] 11.1 fL Normal 6.2-12.0 [facility] Comment on above: Performed By: #### L 500.2500, L501.1800, L100.0100, L501.5200 ####[facility] [address] [place], [address] Platelets (Bld) [#/Vol] 172 10*3/uL Normal 150-450 [facility] Comment on above: Performed By: #### L 500.2500, L501.1800, L100.0100, L501.5200 ####[facility] [address] [place], [address] RBC (Bld) [#/Vol] 4.18 10*6/uL Low 4.6-6.2 [facility] Comment on above: Performed By: #### L 500.2500, L501.1800, L100.0100, L501.5200 ####[facility] [address] [place], [address] RDW SD 44.3 fl High 35.1-43.9 [facility] Comment on above: Performed By: #### L 500.2500, L501.1800, L100.0100, L501.5200 ####[facility] [address] [place], [address] WBC (Bld) [#/Vol] 6.7 10*3/uL Normal 4.4-11.0 [facility] Comment on above: Performed By: #### L 500.2500, L501.1800, L100.0100, L501.5200 ####[facility] [address] [place], [address] Carbon dioxide, total [Moles /volume] in Central venous bloodOrdered By: Zina Petit on 01-13-2025 CO2 [Moles/Vol] 24.8 mmol/L 21.0-32.0 [facility] Chloride assayOrdered By: Alejandrina Petit on 01-13-2025 Chloride [Moles/Vol] 105 mmol/L 98-108 [facility] Eosinophil percentageOrdered By: Zina Petit on 01-13-2025 Eosinophils/100 WBC (Bld) 5.8 % High 0-5 [facility] Erythrocyte distribution wid th ratioOrdered By: Zina Petit on 01-13-2025 Erythrocyte distribution width (RBC) [Ratio] 13.0 % 11.6-14.6 [facility] Erythrocyte distribution wid th standard deviationOrdered By: Zina Petit on 01-13-2025 Erythrocyte distribution width (RBC) [Ratio] 44.3 fl High 35.1-43.9 [facility] Glomerular filtration rate ( GFR) estimation/1.73 sq m using serum, plasma, or whole bOrdered By: Zina Petit on 01-13-2025 GFR/1.73 sq M.predicted among non-blacks MDRD (S/P/Bld) [Vol rate/Area] 59 mL/min/{1.73_m2} Low >60 [facility] Comment on above: mL/min/1.73m2 CKD-EP I Creatinine Equation (2020) Hematocrit Auto (Bld) [Volum e fraction]Ordered By: Zina Petit on 01-13-2025 Hematocrit (Bld) [Volume fraction] 39.0 % Low 40-54 [facility] Hemoglobin measurementOrdere d By: Zina Petit on 01-13-2025 Hemoglobin (Bld) [Mass/Vol] 12.7 g/dL Low 13.0-16.5 [facility] Immature granulocytes/100 WB C Auto (Bld)Ordered By: Zina Petit on 01-13-2025 Immature granulocytes/100 WBC (Bld) 0.400 % 0.0-0.9 [facility] Comment on above: IG% - Immature Granu locytes (promyelocytes, myelocytes and metamyelocytes) > 1% indicates that a LEFT SHIFT is Present. MCV (mean corpuscular volume ) determinationOrdered By: Zina Petit on 01-13-2025 MCV (RBC) [Entitic vol] 93.3 fL 80-94 [facility] Magnesiumon 01-13-2025 Magnesium [Mass/Vol] 2.2 mg/dL Normal 1.5-2.2 [facility] Comment on above: Performed By: #### L 500.2500, L501.1800, L100.0100, L501.5200 ####[facility] [address] [place], [address] Magnesium measurement (mass/ volume)Ordered By: Zina Petit on 01-13-2025 Magnesium (Unsp spec) [Mass/Vol] 2.2 mg/dL 1.5-2.2 [facility] Mean corpuscular hemoglobin (MCH) determinationOrdered By: Zina Petit on 01-13-2025 MCH (RBC) [Entitic mass] 30.4 pg 27.0-32.0 [facility] Mean corpuscular hemoglobin concentration (MCHC) determinationOrdered By: Zina Petit on 01-13-2025 MCHC (RBC) [Mass/Vol] 32.6 g/dL 32-36 [facility] Mean platelet volume determi nationOrdered By: Zina Petit on 01-13-2025 Platelet mean volume (Bld) [Entitic vol] 11.1 fL 6.2-12.0 [facility] Monocyte percentageOrdered B y: Zina Petit on 01-13-2025 Monocytes/100 WBC (Bld) 8.5 % 0-10 [facility] Neutrophil percentageOrdered By: Zina Petit on 01-13-2025 Neutrophils/100 WBC (Bld) 66.2 % 47-70 [facility] Nucleated red blood cell per centageOrdered By: Zina Petit on 01-13-2025 Nucleated RBC/100 WBC (Bld) [Ratio] 0 % 0-5 [facility] Platelet countOrdered By: Alejandrina Petit on 01-13-2025 Platelets (Bld) [#/Vol] 172 10*3/uL 150-450 [facility] Potassium measurement (mass/ volume)Ordered By: Zina Petit on 01-13-2025 Potassium (Unsp spec) [Mass/Vol] 4.2 mmol/L 3.3-5.1 [facility] RBC Auto (Bld) [#/Vol]Ordere d By: Zina Petit on 01-13-2025 RBC (Bld) [#/Vol] 4.18 10*6/uL Low 4.6-6.2 [facility] Serum creatinine measurement (mass/volume)Ordered By: Zina Petit on 01-13-2025 Creatinine [Mass/Vol] 1.19 mg/dL 0.70-1.20 [facility] Serum glucose measurement (m ass/volume)Ordered By: Zina Petit on 01-13-2025 Glucose [Mass/Vol] 95 mg/dL 70-99 [facility] Serum or plasma albumin dulce urement (mass/volume)Ordered By: Zina Petit on 01-13-2025 Albumin [Mass/Vol] 4.1 g/dL 3.4-4.8 [facility] Serum or plasma calcium dulce urement (mass/volume)Ordered By: Zina Petit on 01-13-2025 Calcium [Mass/Vol] 9.1 mg/dL 7.6-11.0 [facility] Serum or plasma urea nitroge n measurement (mass/volume)Ordered By: Zina Petit on 01-13-2025 Urea nitrogen [Mass/Vol] 27 mg/dL High 4-19 [facility] Sodium levelOrdered By: Deanne Petit on 01-13-2025 Sodium [Moles/Vol] 139 mmol/L 133-145 [facility] White blood cell (WBC) count Ordered By: Zina Petit on 01-13-2025 WBC (Bld) [#/Vol] 6.7 10*3/uL 4.4-11.0 [facility] CT KNEE W/O CONTRAST RIGHTon 12-30-2024 CT [...] 12/30/2024 7:55:56 AM Ordering Provider: ZINA PETIT [facility] XR CHEST 2 VIEWSon XR CHEST [...] 12/30/2024 3:38:14 AM Ordering Provider: ZINA PETIT [facility] Anion gap in Serum or Plasma Ordered By: Dmitriy Hardy on 10-11-2024 Anion gap [Moles/Vol] 11 mmol/L 5- [facility] BUN/creatinine ratioOrdered By: Dmitriy Hardy on 10-11-2024 Urea nitrogen/Creatinine [Mass ratio] 21.8 mg/mg High 10- [facility] Bilirubin, totalOrdered By: Dmitriy Hardy on 10-11-2024 Bilirubin [Mass/Vol] 0.60 mg/dL 0.00-1.30 [facility] Calculated very low density lipoprotein (VLDL) cholesterol measurementOrdered By: Dmitriy Hardy on 10-11-2024 Calculated very low density lipoprotein (VLDL) cholesterol measurement 23 mg/dL - [facility] VLDL Cholesterol 23 mg/dL - [facility] Carbon dioxide, total [Moles /volume] in Central venous bloodOrdered By: Dmitriy Hardy on 10-11-2024 CO2 [Moles/Vol] 25.3 mmol/L 21.0-32.0 [facility] Chloride assayOrdered By: Manisha Hardy on 10-11-2024 Chloride [Moles/Vol] 103 mmol/L 98-108 [facility] Comprehensive Metabolic Prof ilon 10-11-2024 Albumin [Mass/Vol] 4.3 g/dL Normal 3.4-4.8 [facility] Comment on above: Order Comment: Order Date: 10/11/24 Order Info: [id number] - CMP Order Info: [id number] - LIPID Order Info: [id number] - TSH Order Info: [id number] - T4F Performed By: #### L 500.4050, L500.4100, L506.0400, L501.9520 #### [facility] [address] [place], [address] Albumin/Globulin [Mass ratio] 1.5 {ratio} Normal 0.9-2.4 [facility] Comment on above: Order Comment: Order Date: 10/11/24 Order Info: [id number] - CMP Order Info: [id number] - LIPID Order Info: 3 - TSH Order Info: 7 - T4F Performed By: #### L 500.4050, L500.4100, L506.0400, L501.9520 #### [facility] [address] [place], [id number] ALK PHOS 91 U/L Normal 40-129 [facility] Comment on above: Order Comment: Order Date: 10/11/24 Order Info: [id number]- - CMP Order Info: [id number] - LIPID Order Info: 3 - TSH Order Info: 7 - T4F Performed By: #### L 500.4050, L500.4100, L506.0400, L501.9520 #### [facility] [address] [place], [id number] ALT [Catalytic activity/Vol] 11 U/L Normal <=46 [facility] Comment on above: Order Comment: Order Date: 10/11/24 Order Info: [id number] - CMP Order Info: [id number] - LIPID Order Info: 3 - TSH Order Info: 7 - T4F Performed By: #### L 500.4050, L500.4100, L506.0400, L501.9520 #### [facility] [address] [place], [id number] AST [Catalytic activity/Vol] 24 U/L Normal <=37 [facility] Comment on above: Order Comment: Order Date: 10/11/24 Order Info: [id number] - CMP Order Info: [id number] - LIPID Order Info: 3 - TSH Order Info: [id number] - T4F Performed By: #### L 500.4050, L500.4100, L506.0400, L501.9520 #### [facility] [address] [place], [address] Bilirubin [Mass/Vol] 0.60 mg/dL Normal 0.00-1.30 [facility] Comment on above: Order Comment: Order Date: 10/11/24 Order Info: 86-1 - CMP Order Info: [id number] - LIPID Order Info: 3 - TSH Order Info: [id number] - T4F Performed By: #### L 500.4050, L500.4100, L506.0400, L501.9520 #### [facility] [address] [place], [address] BUN/CRE 21.8 RATIO High 10-20 [facility] Comment on above: Order Comment: Order Date: 10/11/24 Order Info: [id number] - CMP Order Info: - LIPID Order Info: 3 - TSH Order Info: [id number] - T4F Performed By: #### L 500.4050, L500.4100, L506.0400, L501.9520 #### [facility] [address] [place], [address] Calcium [Mass/Vol] 9.3 mg/dL Normal 7.6-11.0 [facility] Comment on above: Order Comment: Order Date: 10/11/24 Order Info: [id number] - CMP Order Info: [id number] - LIPID Order Info: 3 - TSH Order Info: [id number] - T4F Performed By: #### L 500.4050, L500.4100, L506.0400, L501.9520 #### [facility] [address] [place], [address] Chloride [Moles/Vol] 103 mmol/L Normal 98-108 [facility] Comment on above: Order Comment: Order Date: 10/11/24 Order Info: [id number] - CMP Order Info: [id number] - LIPID Order Info: [id number] - TSH Order Info: 7 - T4F Performed By: #### L 500.4050, L500.4100, L506.0400, L501.9520 #### [facility] [address] [place], [address] CO2 [Moles/Vol] 25.3 mmol/L Normal 21.0-32.0 [facility] Comment on above: Order Comment: Order Date: 10/11/24 Order Info: [id number] - CMP Order Info: [id number] - LIPID Order Info: [id number] - TSH Order Info: 7 - T4F Performed By: #### L 500.4050, L500.4100, L506.0400, L501.9520 #### [facility] [address] [place], [address] Creatinine [Mass/Vol] 1.01 mg/dL Normal 0.70-1.20 [facility] Comment on above: Order Comment: Order Date: 10/11/24 Order Info: [id number] - CMP Order Info: [id number] - LIPID Order Info: [id number] - TSH Order Info: 7 - T4F Performed By: #### L 500.4050, L500.4100, L506.0400, L501.9520 #### [facility] [address] [place], [address] GAP 11 Normal 5-15 [facility] Comment on above: Order Comment: Order Date: 10/11/24 Order Info: 07-1 - CMP Order Info: [id number] - LIPID Order Info: [id number] - TSH Order Info: 7 - T4F Performed By: #### L 500.4050, L500.4100, L506.0400, L501.9520 #### [facility] [address] [place], [address] GFR/1.73 sq M.predicted among non-blacks MDRD (S/P/Bld) [Vol rate/Area] 73 mL/min/{1.73_m2} Normal >60 [facility] Comment on above: Order Comment: Order Date: 10/11/24 Order Info: [id number] - CMP Order Info: [id number] - LIPID Order Info: 3 - TSH Order Info: 7 - T4F Result Comment: mL/m in/1.73m2 CKD-EPI Creatinine Equation (2020) Performed By: #### L 500.4050, L500.4100, L506.0400, L501.9520 #### [facility] [address] [place], [address] Globulin (S) [Mass/Vol] 2.9 g/dL Normal 2.2-4.2 [facility] Comment on above: Order Comment: Order Date: 10/11/24 Order Info: [id number] - CMP Order Info: - LIPID Order Info: [id number] - TSH Order Info: 7 - T4F Performed By: #### L 500.4050, L500.4100, L506.0400, L501.9520 #### [facility] [address] [place], [address] Glucose [Mass/Vol] 97 mg/dL Normal 70-99 [facility] Comment on above: Order Comment: Order Date: 10/11/24 Order Info: [id number]- - CMP Order Info: [id number] - LIPID Order Info: 3 - TSH Order Info: 7 - T4F Performed By: #### L 500.4050, L500.4100, L506.0400, L501.9520 #### [facility] [address] [place], [address] Potassium [Moles/Vol] 4.4 mmol/L Normal 3.3-5.1 [facility] Comment on above: Order Comment: Order Date: 10/11/24 Order Info: [id number] - CMP Order Info: [id number] - LIPID Order Info: [id number] - TSH Order Info: [id number] - T4F Performed By: #### L 500.4050, L500.4100, L506.0400, L501.9520 #### [facility] [address] [place], [address] Sodium [Moles/Vol] 139 mmol/L Normal 133-145 [facility] Comment on above: Order Comment: Order Date: 10/11/24 Order Info: [id number] - CMP Order Info: [id number] - LIPID Order Info: 3 - TSH Order Info: 7 - T4F Performed By: #### L 500.4050, L500.4100, L506.0400, L501.9520 #### [facility] [address] [place], [address] T PROT 7.1 g/dL Normal 5.9-8.4 [facility] Comment on above: Order Comment: Order Date: 10/11/24 Order Info: [id number]- - CMP Order Info: [id number] - LIPID Order Info: 3 - TSH Order Info: [id number] - T4F Performed By: #### L 500.4050, L500.4100, L506.0400, L501.9520 #### [facility] [address] [place], [address] Urea nitrogen [Mass/Vol] 22 mg/dL High 4-19 [facility] Comment on above: Order Comment: Order Date: 10/11/24 Order Info: [id number] - CMP Order Info: [id number] - LIPID Order Info: 3 - TSH Order Info: 7 - T4F Performed By: #### L 500.4050, L500.4100, L506.0400, L501.9520 #### [facility] [address] [place], [address] GFR/1.73 sq M.predicted yimi g non-blacks MDRD (S/P/Bld) [Vol rate/Area]Ordered By: Dmitriy Hardy on 10-11-2024 Estimated GFR (MDRD) Non-Af Amer 73 >60 [facility] Comment on above: mL/min/1.73m2 CKD-EP I Creatinine Equation (2020) Glomerular filtration rate ( GFR) estimation/1.73 sq m using serum, plasma, or whole bOrdered By: Dmitriy Hardy on 10-11-2024 GFR/1.73 sq M.predicted among non-blacks MDRD (S/P/Bld) [Vol rate/Area] 73 mL/min/{1.73_m2} >60 [facility] Comment on above: mL/min/1.73m2 CKD-EP I Creatinine Equation (2020) LDL calc ser/plasOrdered By: Dmitriy Hardy on 10-11-2024 Cholesterol in LDL [Mass/Vol] 60 mg/dL [facility] Comment on above: Tmizgakldq=691-532 m g/dL & Higher Ipsn=914 mg/dL or greater LDL Cholesterol, Calculated 60 mg/dL [facility] Comment on above: Mswzzrkhwb=604-191 m g/dL & Higher Dyfw=740 mg/dL or greater Laboratory - Chemistry and C hemistry - challengeOrdered By: Dmitriy Hardy on 10-11-2024 AST [Catalytic activity/Vol] 24 U/L <38 [facility] Lipid Profileon 10-11-2024 CHOL:HDL 3.33 Normal [facility] Comment on above: Order Comment: Order Date: 10/11/24 Order Info: [id number] - CMP Order Info: [id number] - LIPID Order Info: 3 - TSH Order Info: [id number] - T4F Performed By: #### L 500.4050, L500.4100, L506.0400, L501.9520 #### [facility] [address] [place], [place], [address] Cholesterol [Mass/Vol] 118 mg/dL Normal <=200 [facility] Comment on above: Order Comment: Order Date: 10/11/24 Order Info: [id number] - CMP Order Info: [id number] - LIPID Order Info: 3 - TSH Order Info: [id number] - T4F Result Comment: Chol esterol level, Desirable <200 mg/dL Borderline high cholesterol 200-239 mg/dL High cholesterol >=240 mg/dL Recommendations of the NCEP Adult Treatment Panel for the following risk-cutoff thresholds for the [place] population. Performed By: #### L 500.4050, L500.4100, L506.0400, L501.9520 #### [facility] [address] [place], [address] Cholesterol in HDL [Mass/Vol] 35 mg/dL Low [facility] Comment on above: Order Comment: Order Date: 10/11/24 Order Info: [id number] - CMP Order Info: [id number] - LIPID Order Info: 3 - TSH Order Info: [id number] T4F Result Comment: Raquel onal Cholesterol Education Program (NCEP) guidelines: <40 mg/dL: Low HDL-cholesterol (major risk factor for CHD) >= 60 mg/dL: High HDL-cholesterol (negative risk factor for CHD) HDL-cholesterol is affected by a number of factors, e.g. smoking, exercise, hormones, sex and age. Performed By: #### L 500.4050, L500.4100, L506.0400, L501.9520 #### [facility] [address] [place], [address] Cholesterol in LDL [Mass/Vol] 60 mg/dL Normal [facility] Comment on above: Order Comment: Order Date: 10/11/24 Order Info: [id number] - CMP Order Info: [id number] - LIPID Order Info: 3 - TSH Order Info: 3027 - T4F Result Comment: Bord tkxvmc=176-042 mg/dL Higher Iwmf=171 mg/dL or greater Performed By: #### L 500.4050, L500.4100, L506.0400, L501.9520 #### [facility] [address] [place], [address] Cholesterol in VLDL [Mass/Vol] 23 mg/dL Normal 5-40 [facility] Comment on above: Order Comment: Order Date: 10/11/24 Order Info: [id number] - CMP Order Info: [id number] - LIPID Order Info: 3 - TSH Order Info: [id number] T4F Performed By: #### L 500.4050, L500.4100, L506.0400, L501.9520 #### [facility] [address] [place], [address] Triglyceride [Mass/Vol] 114 mg/dL Normal [facility] Comment on above: Order Comment: Order Date: 10/11/24 Order Info: [id number] - CMP Order Info: [id number] - LIPID Order Info: [id number] - TSH Order Info: [id number] - T4F Result Comment: The drugs N-Acetylcysteine and Metamizole may falsely depress this assay. Normal range: <150 mg/dL Borderline High: 150-199 mg/dL High: 200-499 mg/dL Very High: >500 mg/dL Performed By: #### L 500.4050, L500.4100, L506.0400, L501.9520 #### [facility] [address] [place], [address] Potassium (Unsp spec) [Mass/ Vol]Ordered By: Dmitriy Hardy on 10-11-2024 Potassium [Moles/Vol] 4.4 mmol/L 3.3-5.1 [facility] Potassium measurement (mass/ volume)Ordered By: Dmitriy Hardy on 10-11-2024 Potassium (Unsp spec) [Mass/Vol] 4.4 mmol/L 3.3-5.1 [facility] Screening total cholesterol/ high density lipoprotein (HDL) cholesterol ratioOrdered By: Dmitriy Hardy on 10-11-2024 Cholesterol.total/Chol esterol in HDL [Mass ratio] 3.33 {ratio} [facility] Serum creatinine measurement (mass/volume)Ordered By: Dmitriy Hardy on 10-11-2024 Creatinine [Mass/Vol] 1.01 mg/dL 0.70-1.20 [facility] Serum globulin measurementOr dered By: Dmitriy Hardy on 10-11-2024 Globulin (S) [Mass/Vol] 2.9 g/dL 2.2-4.2 [facility] Serum glucose measurement (m ass/volume)Ordered By: Dmitriy Hardy on 10-11-2024 Glucose [Mass/Vol] 97 mg/dL 70-99 [facility] Serum or plasma alanine dyson otransferase (ALT) measurementOrdered By: Dmitriy Hardy on 10-11-2024 ALT [Catalytic activity/Vol] 11 U/L <47 [facility] Serum or plasma albumin dulce urement (mass/volume)Ordered By: Dmitriy Hardy on 10-11-2024 Albumin [Mass/Vol] 4.3 g/dL 3.4-4.8 [facility] Serum or plasma albumin/glob ulin mass ratioOrdered By: Dmitriy Hardy on 10-11-2024 Albumin/Globulin [Mass ratio] 1.5 {ratio} 0.9-2.4 [facility] Serum or plasma alkaline piyush sphatase measurementOrdered By: Dmitriy Hardy on 10-11-2024 ALP [Catalytic activity/Vol] 91 U/L 40-129 [facility] Serum or plasma calcium dulce urement (mass/volume)Ordered By: Dmitriy Hardy on 10-11-2024 Calcium [Mass/Vol] 9.3 mg/dL 7.6-11.0 [facility] Serum or plasma cholesterol in HDL measurement (mass/volume)Ordered By: Dmitriy Hardy on 10-11-2024 Cholesterol in HDL [Mass/Vol] 35 mg/dL Low >40 [facility] Comment on above: National Cholesterol Education Program (NCEP) guidelines:<40 mg/dL: Low HDL-cholesterol (major risk factor for CHD)>= 60 mg/dL: High HDL-cholesterol (negative risk factor for CHD)HDL-cholesterol is affected by a number of factors, e.g. smoking, exercise, hormones, sex and age. Serum or plasma cholesterol measurement (mass/volume)Ordered By: Dmitriy Hardy on 10-11-2024 Cholesterol [Mass/Vol] 118 mg/dL <201 [facility] Comment on above: Cholesterol level, D esirable <200 mg/dLBorderline high cholesterol 200-239 mg/dLHigh cholesterol >=240 mg/dLRecommendations of the NCEP Adult Treatment Panel for the following risk-cutoff thresholds for the [place] population. Serum or plasma urea nitroge n measurement (mass/volume)Ordered By: Dmitriy Hardy on 10-11-2024 Urea nitrogen [Mass/Vol] 22 mg/dL High 4-19 [facility] Sodium levelOrdered By: Dmitriy Hardy on 10-11-2024 Sodium [Moles/Vol] 139 mmol/L 133-145 [facility] T4 Free Directon 10-11-2024 T4 FREE DIRECT 1.30 ng/dL Normal 0.76-1.46 [facility] Comment on above: Order Comment: Order Date: 10/11/24Order Info: [id number] - CMPOrder Info: [id number] - LIPIDOrder Info: [id number] - TSHOrder Info: 7 - T4F Performed By: #### L 500.4050, L500.4100, L506.0400, L501.9520 ####[facility] [address] [place], [address] T4 freeOrdered By: Dmitriy galo on 10-11-2024 Free T4 [Mass/Vol] 1.30 ng/dL 0.76-1.46 [facility] TSH DL <= 0.005 mIU/L QnOrde red By: Dmitriy Hardy on 10-11-2024 Thyroid Stimulating Hormone (TSH) 3.070 uIU/mL 0.300-4.20 0 [facility] TSH Qn 3.070 uIU/mL 0.300-4.20 0 [facility] Thyroid Stim Hormone (TSH)on 10-11-2024 TSH 3.070 uIU/mL Normal 0.300-4.20 0 [facility] Comment on above: Order Comment: Order Date: 10/11/24Order Info: [id number] - CMPOrder Info: [id number] - LIPIDOrder Info: [id number] - TSHOrder Info: [id number] - T4F Performed By: #### L 500.4050, L500.4100, L506.0400, L501.9520 ####[facility] [id number] [place], [address] Total proteinOrdered By: Dean Hardy on 10-11-2024 Protein [Mass/Vol] 7.1 g/dL 5.9-8.4 [facility] Triglycerides measurementOrd ered By: Dmitriy Hardy on 10-11-2024 Triglyceride [Mass/Vol] 114 mg/dL <199 [facility] Comment on above: The drugs N-Acetylcy steine and Metamizole may falsely depress this assay. Normal range: <150 mg/dLBorderline High: 150-199 mg/dLHigh: 200-499 mg/dLVery High: >500 mg/dL No Panel Informationon 07-03 POC SARS CoV-2 Antigen Negative [facility] Urgent Care Visit Reporton 1 09-03-2023 Urgent Care Visit Report [facility] [address], [address] [place] [address] OFFICE VISIT Date of Service: 07/03/24 MR#: [id number] Acct: [id number] Name: SP BABCOCK Rep #: [id number] : 1940 Provider: AIDAN yeh Age/Sex: 83/M Location: [facility] Status: Signed Intake Vital Signs 07/03/24 09:58 Height 5 ft 8 in Weight: 156 lb 6 oz BMI 23.8 BP 120/58 L Blood Pressure Location Lt brachial Position Sitting Respiration 16 Pulse 50 L Pulse Source NIBP Temp 98.1 F Temp Source Oral Pulse Oximetry (%) 96 Oxygen Delivery Method room air Intake Visit Reasons: HEAD CONGESTION Chief Complaint: cough, congestion Verification Engineer Required: No Is patient in pain?: No [...] the last week. He has been taking baje-vzh-uqqjfgh medications without relief. COVID testing prior to [...] distress Orientation: alert, awake and oriented x3 [facility] Head: normal to inspection and normocephalic Ears: [...] negative. W (more content not included)... Normal [facility] Basophil percentageOrdered B y: Merle Stathopoulos on 06-24-2023 Cholesterol [Mass/Vol] 130 mg/dL <200 [facility] Comment on above: <200 mg/dL Desirable 200-240 mg/dL Borderline >240 mg/dL High Risk Triglyceride [Mass/Vol] 159 mg/dL <199 [facility] Comment on above: The drugs N-Acetylcy steine and Metamizole may falsely depress this assay.Serum Triglycerides Reference Interval Normal <150 mg/dL Borderline high 150 - 199 mg/dL High 200 - 499 mg/dL Very High > or = 500 mg/dL Laboratory - Chemistry and C hemistry - challengeOrdered By: Merle Stathopoulos on 06-24-2023 Free T4 [Mass/Vol] 1.00 ng/dL 0.76-1.46 [facility] No Panel InformationOrdered By: Merle Stathopoulos on 06-24-2023 Thyroid Stimulating Hormone (TSH) 2.13 uIU/mL 0.358-3.74 [facility] Serum or plasma cholesterol in HDL measurement (mass/volume)Ordered By: Merle Stathopoulos on 06-24-2023 Cholesterol in HDL [Mass/Vol] 40 mg/dL >40 [facility] Comment on above: The drugs N-Acetylcy steine and Metamizole may falsely depress this assay. Reference Range HDL <40 mg/dL Low HDL Cholesterol HDL >or= 60 mg/dL High HDL Cholesterol Serum or plasma cholesterol in VLDL measurement (mass/volume)Ordered By: Merle Stathopoulos on 06-24-2023 Cholesterol in VLDL [Mass/Vol] 32 mg/dL 5-40 [facility] Serum or plasma low density lipoprotein (LDL) cholesterol measurement (mass/volume)Ordered By: Merle Stathopoulos on 06-24-2023 Cholesterol in LDL [Mass/Vol] 58 mg/dL 0-130 [facility] Laboratory - Chemistry and C hemistry - challengeOrdered By: Ashwin Moreland on 04-03-2023 Free T4 [Mass/Vol] 0.99 ng/dL 0.76-1.46 [facility] No Panel InformationOrdered By: Ashwin Moreland on 04-03-2023 Thyroid Stimulating Hormone (TSH) 1.65 uIU/mL 0.358-3.74 [facility] Absolute lymphocyte countOrd ered By: Dmitriy Hardy on 01-20-2023 Lymphocytes Auto (Unsp spec) [#/Vol] 1.45 10*3/uL 0.83-4.51 [facility] Basophil percentageOrdered B y: Dmitriy Hardy on 01-20-2023 Basophils/100 WBC (Bld) 0.7 % 0-1 [facility] Bilirubin [Mass/Vol] 0.60 mg/dL 0.20-1.00 [facility] Comment on above: For patients on eltr ombopag therapy, use of Dimension [place] TBIL is not recommended. Chloride [Moles/Vol] 110 mmol/L 98-107 [facility] Cholesterol [Mass/Vol] 111 mg/dL <200 [facility] Comment on above: <200 mg/dL Desirable 200-240 mg/dL Borderline >240 mg/dL High Risk Eosinophils/100 WBC (Bld) 6.6 % 0-5 [facility] Glucose [Mass/Vol] 94 mg/dL 74-106 [facility] Neutrophils (Bld) [#/Vol] 4.7 10*3/uL 2.0-7.7 [facility] Neutrophils/100 WBC (Bld) 64.3 % 47-70 [facility] Potassium [Moles/Vol] 4.2 mmol/L 3.5-5.1 [facility] Protein [Mass/Vol] 7.0 g/dL 6.4-8.2 [facility] Sodium [Moles/Vol] 141 mmol/L 136-145 [facility] Triglyceride [Mass/Vol] 133 mg/dL <199 [facility] Comment on above: The drugs N-Acetylcy steine and Metamizole may falsely depress this assay.Serum Triglycerides Reference Interval Normal <150 mg/dL Borderline high 150 - 199 mg/dL High 200 - 499 mg/dL Very High > or = 500 mg/dL WBC (Bld) [#/Vol] 7.3 10*3/uL 4.4-11.0 [facility] Blood erythrocytes count (nu mber/volume)Ordered By: Dmitriy Hardy on 01-20-2023 RBC (Bld) [#/Vol] 4.31 10*6/uL 4.6-6.2 [facility] Blood hemoglobin measurement (mass/volume)Ordered By: Dmitriy Hardy on 01-20-2023 Hemoglobin (Bld) [Mass/Vol] 13.2 g/dL 13.0-16.5 [facility] Blood lymphocytes/100 leukoc ytesOrdered By: Dmitriy Hardy on 01-20-2023 Lymphocytes/100 WBC (Bld) 19.9 % 19-41 [facility] Blood monocytes/100 leukocyt esOrdered By: Dmitriy Hardy on 01-20-2023 Monocytes/100 WBC (Bld) 8.2 % 0-10 [facility] Blood platelet mean volumeOr dered By: Dmitriy Hardy on 01-20-2023 Platelet mean volume (Bld) [Entitic vol] 10.9 fL 6.2-12.0 [facility] Determination of erythrocyte mean corpuscular volume (MCV)Ordered By: Dmitriy Hardy on 01-20-2023 MCV (RBC) [Entitic vol] 93.7 fL 80-94 [facility] Hematocrit Auto (Bld) [Volum e fraction]Ordered By: Dmitriy Hardy on 01-20-2023 Hematocrit (Bld) [Volume fraction] 40.4 % 40-54 [facility] Laboratory - Chemistry and C hemistry - challengeOrdered By: Dmitriy Hardy on 01-20-2023 ALP [Catalytic activity/Vol] 85 U/L 45-117 [facility] ALT [Catalytic activity/Vol] 17 U/L 16-61 [facility] CO2 [Moles/Vol] 28.0 mmol/L 21.0-32.0 [facility] Free T4 [Mass/Vol] 0.69 ng/dL 0.76-1.46 [facility] Globulin (S) [Mass/Vol] 3.4 g/dL 2.2-4.2 [facility] Urea nitrogen/Creatinine [Mass ratio] 20.3 mg/mg 10-20 [facility] Laboratory - Hematology and Cell countsOrdered By: Dmitriy Hardy on 01-20-2023 Erythrocyte distribution width (RBC) [Entitic vol] 43.8 fL 35.1-43.9 [facility] Erythrocyte distribution width (RBC) [Ratio] 12.7 % 11.6-14.6 [facility] Immature granulocytes/100 WBC (Bld) 0.300 % 0.0-0.9 [facility] Comment on above: IG% - Immature Granu locytes (promyelocytes, myelocytes and metamyelocytes) > 1% indicates that a LEFT SHIFT is Present. MCH (RBC) [Entitic mass] 30.6 pg 27.0-32.0 [facility] Nucleated RBC/100 WBC (Bld) [Ratio] 0 % 0-5 [facility] MCHC Auto (RBC) [Mass/Vol]Or dered By: Dmitriy Hardy on 01-20-2023 MCHC (RBC) [Mass/Vol] 32.7 g/dL 32-36 [facility] No Panel InformationOrdered By: Dmitriy Hardy on 01-20-2023 Estimated GFR (MDRD) Amer 61 mL/min >60 [facility] Comment on above: GFR Calc Estimated GFR (MDRD) Non-Af Amer 50 mL/min >60 [facility] Comment on above: Non- GFR Calc Thyroid Stimulating Hormone (TSH) 4.41 uIU/mL 0.358-3.74 [facility] Platelets bldOrdered By: Dean Hardy on 01-20-2023 Platelets (Bld) [#/Vol] 170 10*3/uL 150-450 [facility] Serum or plasma albumin dulce urement (mass/volume)Ordered By: Dmitriy Hardy on 01-20-2023 Albumin [Mass/Vol] 3.6 g/dL 3.2-5.0 [facility] Serum or plasma albumin/glob ulin mass ratioOrdered By: Dmitriy Hardy on 01-20-2023 Albumin/Globulin [Mass ratio] 1.1 {ratio} 0.9-2.4 [facility] Serum or plasma calcium dulce urement (mass/volume)Ordered By: Dmitriy Hardy on 01-20-2023 Calcium [Mass/Vol] 9.0 mg/dL 8.5-10.1 [facility] Serum or plasma cholesterol in HDL measurement (mass/volume)Ordered By: Dmitriy Hardy on 01-20-2023 Cholesterol in HDL [Mass/Vol] 33 mg/dL >40 [facility] Comment on above: The drugs N-Acetylcy steine and Metamizole may falsely depress this assay. Reference Range HDL <40 mg/dL Low HDL Cholesterol HDL >or= 60 mg/dL High HDL Cholesterol Serum or plasma cholesterol in VLDL measurement (mass/volume)Ordered By: Dmitriy Hardy on 01-20-2023 Cholesterol in VLDL [Mass/Vol] 27 mg/dL 5-40 [facility] Serum or plasma creatinine m easurement (mass/volume)Ordered By: Dmitriy Hardy on 01-20-2023 Creatinine [Mass/Vol] 1.43 mg/dL 0.70-1.30 [facility] Comment on above: The validity of the calculated GFR & GFRAA in patients over 70 years has not been determined. Clinical correlation is essential. Serum or plasma low density lipoprotein (LDL) cholesterol measurement (mass/volume)Ordered By: Dmitriy Hardy on 01-20-2023 Cholesterol in LDL [Mass/Vol] 51 mg/dL 0-130 [facility] Serum or plasma urea nitroge n measurement (mass/volume)Ordered By: Dmitriy Hardy on 01-20-2023 Urea nitrogen [Mass/Vol] 29 mg/dL 7-18 [facility] Thin prep Papanicolaou smear with manual screeningOrdered By: Dmitriy Hardy on 01-20-2023 Thin prep Papanicolaou smear with manual screening 22 U/L 15-37 [facility] Thin prep Papanicolaou smear with manual screening 3 5-15 [facility] Absolute lymphocyte counton 06-24-2022 Lymphocytes Auto (Unsp spec) [#/Vol] 1.40 10*3/uL 0.83-4.51 [facility] Work Phone: Basophil percentageon 2021 Basophils/100 WBC (Bld) 0.9 % 0-1 [facility] Work Phone: Bilirubin [Mass/Vol] 0.70 mg/dL 0.20-1.00 [facility] Work Phone: Comment on above: For patients on eltr ombopag therapy, use of Dimension [place] TBIL is not recommended. Chloride [Moles/Vol] 103 mmol/L 98-107 [facility] Work Phone: [phone] Cholesterol [Mass/Vol] 116 mg/dL <200 [facility] Work Phone: Comment on above: <200 mg/dL Desirable 200-240 mg/dL Borderline >240 mg/dL High Risk Eosinophils/100 WBC (Bld) 6.9 % 0-5 [facility] Work Phone: Glucose [Mass/Vol] 80 mg/dL 74-106 [facility] Work Phone: [phone] Neutrophils (Bld) [#/Vol] 4.3 10*3/uL 2.0-7.7 [facility] Work Phone: Neutrophils/100 WBC (Bld) 61.6 % 47-70 [facility] Work Phone: Potassium [Moles/Vol] 4.5 mmol/L 3.5-5.1 [facility] Work Phone: Protein [Mass/Vol] 6.9 g/dL 6.4-8.2 [facility] Work Phone: Sodium [Moles/Vol] 139 mmol/L 136-145 [facility] Work Phone: Triglyceride [Mass/Vol] 101 mg/dL <199 [facility] Work Phone: Comment on above: The drugs N-Acetylcy steine and Metamizole may falsely depress this assay.Serum Triglycerides Reference Interval Normal <150 mg/dL Borderline high 150 - 199 mg/dL High 200 - 499 mg/dL Very High > or = 500 mg/dL WBC (Bld) [#/Vol] 6.9 10*3/uL 4.4-11.0 [facility] Work Phone: Blood erythrocytes count (nu mber/volume)on 06-24-2022 RBC (Bld) [#/Vol] 4.44 10*6/uL 4.6-6.2 [facility] Work Phone: Blood hemoglobin measurement (mass/volume)on 06-24-2022 Hemoglobin (Bld) [Mass/Vol] 13.8 g/dL 13.0-16.5 [facility] Work Phone: Blood lymphocytes/100 leukoc yteson 06-24-2022 Lymphocytes/100 WBC (Bld) 20.2 % 19-41 [facility] Work Phone: Blood monocytes/100 leukocyt eson 06-24-2022 Monocytes/100 WBC (Bld) 9.5 % 0-10 [facility] Work Phone: Blood platelet mean volumeon 06-24-2022 Platelet mean volume (Bld) [Entitic vol] 10.7 fL 6.2-12.0 [facility] Work Phone: Determination of erythrocyte mean corpuscular volume (MCV)on 06-24-2022 MCV (RBC) [Entitic vol] 93.7 fL 80-94 [facility] Work Phone: Hematocrit Auto (Bld) [Volum e fraction]on 06-24-2022 Hematocrit (Bld) [Volume fraction] 41.6 % 40-54 [facility] Work Phone: Laboratory - Chemistry and C hemistry - challengeon 06-24-2022 ALP [Catalytic activity/Vol] 89 U/L 45-117 [facility] Work Phone: ALT [Catalytic activity/Vol] 22 U/L 16-61 [facility] Work Phone: CO2 [Moles/Vol] 30.0 mmol/L 21.0-32.0 [facility] Work Phone: Free T4 [Mass/Vol] 0.86 ng/dL 0.76-1.46 [facility] Work Phone: Globulin (S) [Mass/Vol] 3.3 g/dL 2.2-4.2 [facility] Work Phone: Urea nitrogen/Creatinine [Mass ratio] 24.0 mg/mg 10-20 [facility] Work Phone: Laboratory - Hematology and Cell countson 06-24-2022 Erythrocyte distribution width (RBC) [Entitic vol] 43.9 fL 35.1-43.9 [facility] Work Phone: Erythrocyte distribution width (RBC) [Ratio] 12.7 % 11.6-14.6 [facility] Work Phone: Immature granulocytes/100 WBC (Bld) 0.900 % 0.0-0.9 [facility] Work Phone: Comment on above: IG% - Immature Granu locytes (promyelocytes, myelocytes and metamyelocytes) > 1% indicates that a LEFT SHIFT is Present. MCH (RBC) [Entitic mass] 31.1 pg 27.0-32.0 [facility] Work Phone: Nucleated RBC/100 WBC (Bld) [Ratio] 0 % 0-5 [facility] Work Phone: MCHC Auto (RBC) [Mass/Vol]on 06-24-2022 MCHC (RBC) [Mass/Vol] 33.2 g/dL 32-36 [facility]: No Panel Informationon 06-24 Estimated GFR (MDRD) Amer 88 mL/min >60 [facility] Work Phone: Comment on above: GFR Calc Estimated GFR (MDRD) Non-Af Amer 72 mL/min >60 [facility] Work Phone: Comment on above: Non- GFR Calc Thyroid Stimulating Hormone (TSH) 8.36 uIU/mL 0.358-3.74 [facility] Work Phone: Platelets bldon 06-24-2022 Platelets (Bld) [#/Vol] 178 10*3/uL 150-450 [facility] Work Phone: Serum or plasma albumin dulce urement (mass/volume)on 06-24-2022 Albumin [Mass/Vol] 3.6 g/dL 3.2-5.0 [facility] Work Phone: Serum or plasma albumin/glob ulin mass ratioon 06-24-2022 Albumin/Globulin [Mass ratio] 1.1 {ratio} 0.9-2.4 [facility] Work Phone: Serum or plasma calcium dulce urement (mass/volume)on 06-24-2022 Calcium [Mass/Vol] 9.0 mg/dL 8.5-10.1 [facility] Work Phone: Serum or plasma cholesterol in HDL measurement (mass/volume)on 06-24-2022 Cholesterol in HDL [Mass/Vol] 34 mg/dL >40 [facility] Work Phone: Comment on above: The drugs N-Acetylcy steine and Metamizole may falsely depress this assay. Reference Range HDL <40 mg/dL Low HDL Cholesterol HDL >or= 60 mg/dL High HDL Cholesterol Serum or plasma cholesterol in VLDL measurement (mass/volume)on 06-24-2022 Cholesterol in VLDL [Mass/Vol] 20 mg/dL 5-40 [facility] Work Phone: Serum or plasma creatinine m easurement (mass/volume)on 06-24-2022 Creatinine [Mass/Vol] 1.04 mg/dL 0.70-1.30 [facility] Work Phone: Comment on above: The validity of the calculated GFR & GFRAA in patients over 70 years has not been determined. Clinical correlation is essential. Serum or plasma low density lipoprotein (LDL) cholesterol measurement (mass/volume)on 06-24-2022 Cholesterol in LDL [Mass/Vol] 62 mg/dL 0-130 [facility] Work Phone: Serum or plasma urea nitroge n measurement (mass/volume)on 06-24-2022 Urea nitrogen [Mass/Vol] 25 mg/dL 7-18 [facility] Work Phone: Thin prep Papanicolaou smear with manual screeningon 06-24-2022 Thin prep Papanicolaou smear with manual screening 19 U/L 15-37 [facility] Work Phone: Thin prep Papanicolaou smear with manual screening 6 5-15 [facility] Work Phone: Laboratory - Microbiology an d Antimicrobial susceptibilityon 04-03-2022 SARS-CoV-2 (COVID-19) RNA MARY+probe Ql (Unsp spec) Not detected Not Detect [facility] Work Phone: Comment on above: Normal Reference Ran ge: Not DetectedMethod:(RT-PCR) real-time reverse transcriptase PCRLuminex CORAL Instrument*The Food and Drug Administration (FDA) has issued an Emergency Use Authorization (EAU) for the [employer] SARS-CoV-2 Assay for the rapid detection of [...] Date: 02/28/2022 11:29:50 AM Ordering Provider: E[facility] ([place]) Absolute lymphocyte counton 12-25-2021 Lymphocytes Auto (Unsp spec) [#/Vol] 1.31 10*3/uL 0.83-4.51 [facility] Work Phone: Basophil percentageon 2021 Basophils/100 WBC (Bld) 0.5 % 0-1 [facility] Work Phone: Bilirubin [Mass/Vol] 0.80 mg/dL 0.20-1.00 [facility] Work Phone: Comment on above: For patients on eltr ombopag therapy, use of [employer] [place] TBIL is not recommended. Chloride [Moles/Vol] 108 mmol/L 98-107 [facility] Work Phone: Cholesterol [Mass/Vol] 100 mg/dL <200 [facility] Work Phone: Comment on above: <200 mg/dL Desirable 200-240 mg/dL Borderline >240 mg/dL High Risk Eosinophils/100 WBC (Bld) 4.9 % 0-5 [facility] Work Phone: Glucose [Mass/Vol] 93 mg/dL 74-106 [facility] Work Phone: Neutrophils (Bld) [#/Vol] 3.6 10*3/uL 2.0-7.7 [facility] Work Phone: Neutrophils/100 WBC (Bld) 61.7 % 47-70 [facility] Work Phone: Potassium [Moles/Vol] 4.2 mmol/L 3.5-5.1 [facility] Work Phone: Protein [Mass/Vol] 7.0 g/dL 6.4-8.2 [facility] Work Phone: Sodium [Moles/Vol] 139 mmol/L 136-145 [facility] Work Phone: Triglyceride [Mass/Vol] 58 mg/dL <199 [facility] Work Phone: Comment on above: The drugs N-Acetylcy steine and Metamizole may falsely depress this assay.Serum Triglycerides Reference Interval Normal <150 mg/dL Borderline high 150 - 199 mg/dL High 200 - 499 mg/dL Very High > or = 500 mg/dL WBC (Bld) [#/Vol] 5.9 10*3/uL 4.4-11.0 [facility] Work Phone: Blood erythrocytes count (nu mber/volume)on 12-25-2021 RBC (Bld) [#/Vol] 4.38 10*6/uL 4.6-6.2 [facility] Work Phone: Blood hemoglobin measurement (mass/volume)on 12-25-2021 Hemoglobin (Bld) [Mass/Vol] 13.2 g/dL 13.0-16.5 [facility] Work Phone: Blood lymphocytes/100 leukoc yteson 12-25-2021 Lymphocytes/100 WBC (Bld) 22.3 % 19-41 [facility] Work Phone: [phone] Blood monocytes/100 leukocyt eson 12-25-2021 Monocytes/100 WBC (Bld) 10.1 % 0-10 [facility] Work Phone: Blood platelet mean volumeon 12-25-2021 Platelet mean volume (Bld) [Entitic vol] 10.8 fL 6.2-12.0 [facility] Work Phone: Determination of erythrocyte mean corpuscular volume (MCV)on 12-25-2021 MCV (RBC) [Entitic vol] 91.8 fL 80-94 [facility] Work Phone: Hematocrit Auto (Bld) [Volum e fraction]on 12-25-2021 Hematocrit (Bld) [Volume fraction] 40.2 % 40-54 [facility] Work Phone: Laboratory - Chemistry and C hemistry - challengeon 12-25-2021 ALP [Catalytic activity/Vol] 90 U/L 45-117 [facility] Work Phone: ALT [Catalytic activity/Vol] 16 U/L 16-61 [facility] Work Phone: CO2 [Moles/Vol] 26.0 mmol/L 21.0-32.0 [facility] Work Phone: Free T4 [Mass/Vol] 0.85 ng/dL 0.76-1.46 [facility] Work Phone: Globulin (S) [Mass/Vol] 3.2 g/dL 2.2-4.2 [facility] Work Phone: Urea nitrogen/Creatinine [Mass ratio] 32.1 mg/mg 10-20 [facility] Work Phone: Laboratory - Hematology and Cell countson 12-25-2021 Erythrocyte distribution width (RBC) [Entitic vol] 43.0 fL 35.1-43.9 [facility] Work Phone: Erythrocyte distribution width (RBC) [Ratio] 12.7 % 11.6-14.6 [facility] Work Phone: [phone] Immature granulocytes/100 WBC (Bld) 0.500 % 0.0-0.9 [facility] Work Phone: Comment on above: IG% - Immature Granu locytes (promyelocytes, myelocytes and metamyelocytes) > 1% indicates that a LEFT SHIFT is Present. MCH (RBC) [Entitic mass] 30.1 pg 27.0-32.0 [facility] Work Phone: Nucleated RBC/100 WBC (Bld) [Ratio] 0 % 0-5 [facility] Work Phone: MCHC Auto (RBC) [Mass/Vol]on 12-25-2021 MCHC (RBC) [Mass/Vol] 32.8 g/dL 32-36 [facility] Work Phone: No Panel Informationon 12-25 Estimated GFR (MDRD) Amer 83 mL/min >60 [facility] Work Phone: Comment on above: GFR Calc Estimated GFR (MDRD) Non-Af Amer 69 mL/min >60 [facility] Work Phone: Comment on above: Non- GFR Calc Thyroid Stimulating Hormone (TSH) 3.98 uIU/mL 0.358-3.74 [facility] Work Phone: Platelets bldon 12-25-2021 Platelets (Bld) [#/Vol] 176 10*3/uL 150-450 [facility] Work Phone: Serum or plasma albumin dulce urement (mass/volume)on 12-25-2021 Albumin [Mass/Vol] 3.8 g/dL 3.2-5.0 [facility] Work Phone: Serum or plasma albumin/glob ulin mass ratioon 12-25-2021 Albumin/Globulin [Mass ratio] 1.2 {ratio} 0.9-2.4 [facility] Work Phone: Serum or plasma calcium dulce urement (mass/volume)on 12-25-2021 Calcium [Mass/Vol] 8.8 mg/dL 8.5-10.1 [facility] Work Phone: Serum or plasma cholesterol in HDL measurement (mass/volume)on 12-25-2021 Cholesterol in HDL [Mass/Vol] 37 mg/dL >40 [facility] Work Phone: Comment on above: The drugs N-Acetylcy steine and Metamizole may falsely depress this assay. Reference Range HDL <40 mg/dL Low HDL Cholesterol HDL >or= 60 mg/dL High HDL Cholesterol Serum or plasma cholesterol in VLDL measurement (mass/volume)on 12-25-2021 Cholesterol in VLDL [Mass/Vol] 12 mg/dL 5-40 [facility] Work Phone: Serum or plasma creatinine m easurement (mass/volume)on 12-25-2021 Creatinine [Mass/Vol] 1.09 mg/dL 0.70-1.30 [facility] Work Phone: Comment on above: The validity of the calculated GFR & GFRAA in patients over 70 years has not been determined. Clinical correlation is essential. Serum or plasma low density lipoprotein (LDL) cholesterol measurement (mass/volume)on 12-25-2021 Cholesterol in LDL [Mass/Vol] 51 mg/dL 0-130 [facility] Work Phone: Serum or plasma urea nitroge n measurement (mass/volume)on 12-25-2021 Urea nitrogen [Mass/Vol] 35 mg/dL 7-18 [facility] Work Phone: Thin prep Papanicolaou smear with manual screeningon 12-25-2021 Thin prep Papanicolaou smear with manual screening 16 U/L 15-37 [facility] Work Phone: Thin prep Papanicolaou smear with manual screening 5 5-15 [facility] Work Phone: Absolute lymphocyte counton 10-01-2021 Lymphocytes Auto (Unsp spec) [#/Vol] 1.39 10*3/uL 0.83-4.51 [facility] Work Phone: Basophil percentageon 2021 Basophils/100 WBC (Bld) 0.8 % 0-1 [facility] Work Phone: Bilirubin [Mass/Vol] 0.90 mg/dL 0.20-1.00 [facility] Work Phone: Comment on above: For patients on eltr ombopag therapy, use of [employer] [place] TBIL is not recommended. Chloride [Moles/Vol] 105 mmol/L 98-107 [facility] Work Phone: Cholesterol [Mass/Vol] 232 mg/dL <200 [facility] Work Phone: Comment on above: <200 mg/dL Desirable 200-240 mg/dL Borderline >240 mg/dL High Risk Eosinophils/100 WBC (Bld) 5.0 % 0-5 [facility] Work Phone: Glucose [Mass/Vol] 101 mg/dL 74-106 [facility] Work Phone: Comment on above: Fasting Glucose resu lt from 100 to 125 mg/dL suggests IMPAIRED HOMEOSTASIS per A.D.A. criteria. Neutrophils (Bld) [#/Vol] 3.9 10*3/uL 2.0-7.7 [facility] Work Phone: Neutrophils/100 WBC (Bld) 62.0 % 47-70 [facility] Work Phone: Potassium [Moles/Vol] 4.6 mmol/L 3.5-5.1 [facility] Work Phone: Protein [Mass/Vol] 7.8 g/dL 6.4-8.2 [facility] Work Phone: Sodium [Moles/Vol] 138 mmol/L 136-145 [facility] Work Phone: Triglyceride [Mass/Vol] 141 mg/dL <199 [facility] Work Phone: Comment on above: The drugs N-Acetylcy steine and Metamizole may falsely depress this assay.Serum Triglycerides Reference Interval Normal <150 mg/dL Borderline high 150 - 199 mg/dL High 200 - 499 mg/dL Very High > or = 500 mg/dL WBC (Bld) [#/Vol] 6.4 10*3/uL 4.4-11.0 [facility] Work Phone: Blood erythrocytes count (nu mber/volume)on 10-01-2021 RBC (Bld) [#/Vol] 4.85 10*6/uL 4.6-6.[facility] Blood hemoglobin measurement (mass/volume)on 10-01-2021 Hemoglobin (Bld) [Mass/Vol] 14.4 g/dL 13.0-16.5 [facility] Work Phone: Blood lymphocytes/100 leukoc yteson 10-01-2021 Lymphocytes/100 WBC (Bld) 21.9 % 19-41 [facility] Work Phone: Blood monocytes/100 leukocyt eson 10-01-2021 Monocytes/100 WBC (Bld) 9.4 % 0-10 [facility] Work Phone: Blood platelet mean volumeon 10-01-2021 Platelet mean volume (Bld) [Entitic vol] 10.7 fL 6.2-12.0 [facility] Work Phone: Determination of erythrocyte mean corpuscular volume (MCV)on 10-01-2021 MCV (RBC) [Entitic vol] 92.6 fL 80-94 [facility] Work Phone: Hematocrit Auto (Bld) [Volum e fraction]on 10-01-2021 Hematocrit (Bld) [Volume fraction] 44.9 % 40-54 [facility] Work Phone: Laboratory - Chemistry and C hemistry - challengeon 10-01-2021 ALP [Catalytic activity/Vol] 100 U/L 45-117 [facility] Work Phone: ALT [Catalytic activity/Vol] 17 U/L 16-61 [facility] Work Phone: CO2 [Moles/Vol] 30.0 mmol/L 21.0-32.0 [facility] Work Phone: Globulin (S) [Mass/Vol] 3.9 g/dL 2.2-4.2 [facility] Work Phone: Urea nitrogen/Creatinine [Mass ratio] 20.5 mg/mg 10-20 [facility] Work Phone: Laboratory - Hematology and Cell countson 10-01-2021 Erythrocyte distribution width (RBC) [Entitic vol] 44.7 fL 35.1-43.9 [facility] Work Phone: Erythrocyte distribution width (RBC) [Ratio] 13.2 % 11.6-14.6 [facility] Work Phone: Immature granulocytes/100 WBC (Bld) 0.900 % 0.0-0.9 [facility] Work Phone: Comment on above: IG% - Immature Granu locytes (promyelocytes, myelocytes and metamyelocytes) > 1% indicates that a LEFT SHIFT is Present. MCH (RBC) [Entitic mass] 29.7 pg 27.0-32.0 [facility] Work Phone: Nucleated RBC/100 WBC (Bld) [Ratio] 0 % 0-5 [facility] Work Phone: MCHC Auto (RBC) [Mass/Vol]on 10-01-2021 MCHC (RBC) [Mass/Vol] 32.1 g/dL 32-36 [facility] Work Phone: No Panel Informationon 10-01 Estimated GFR (MDRD) Amer 81 mL/min >60 [facility] Work Phone: Comment on above: GFR Calc Estimated GFR (MDRD) Non-Af Amer 67 mL/min >60 [facility] Work Phone: Comment on above: Non- GFR Calc Thyroglobulin Antibody 8.3 IU/mL 0.0-0.9 [facility] Work Phone: Comment on above: Thyroglobulin Antibo dy measured by [employer] CoulterMethod[employer] Platelets bldon 10-01-2021 Platelets (Bld) [#/Vol] 197 10*3/uL 150-450 [facility] Work Phone: Serum or plasma albumin dulce urement (mass/volume)on 10-01-2021 Albumin [Mass/Vol] 3.9 g/dL 3.2-5.0 [facility] Work Phone: Serum or plasma albumin/glob ulin mass ratioon 10-01-2021 Albumin/Globulin [Mass ratio] 1.0 {ratio} 0.9-2.4 [facility] Work Phone: Serum or plasma calcium dulce urement (mass/volume)on 10-01-2021 Calcium [Mass/Vol] 9.1 mg/dL 8.5-10.1 [facility] Work Phone: Serum or plasma cholesterol in HDL measurement (mass/volume)on 10-01-2021 Cholesterol in HDL [Mass/Vol] 32 mg/dL >40 [facility] Work Phone: Comment on above: The drugs N-Acetylcy steine and Metamizole may falsely depress this assay. Reference Range HDL <40 mg/dL Low HDL Cholesterol HDL >or= 60 mg/dL High HDL Cholesterol Serum or plasma cholesterol in VLDL measurement (mass/volume)on 10-01-2021 Cholesterol in VLDL [Mass/Vol] 28 mg/dL 5-40 [facility] Work Phone: Serum or plasma creatinine m easurement (mass/volume)on 10-01-2021 Creatinine [Mass/Vol] 1.12 mg/dL 0.70-1.30 [facility] Work Phone: Comment on above: The validity of the calculated GFR & GFRAA in patients over 70 years has not been determined. Clinical correlation is essential. Serum or plasma low density lipoprotein (LDL) cholesterol measurement (mass/volume)on 10-01-2021 Cholesterol in LDL [Mass/Vol] 172 mg/dL 0-130 [facility] Work Phone: Serum or plasma thyroperoxid ase antibody assay (units/volume)on 10-01-2021 TPO Ab Qn 337 [IU]/mL 0-34 [facility] Work Phone: Comment on above: Performed at: [place] [id number] Director: Tuan Johnson PhD, Phone: [phone] at: [facility] [employer] [id number] [place], [place] [id number] Director: Ok Whitfield MD, Phone: [phone] Serum or plasma urea nitroge n measurement (mass/volume)on 10-01-2021 Urea nitrogen [Mass/Vol] 23 mg/dL 7-18 [facility] Work Phone: Thin prep Papanicolaou smear with manual screeningon 10-01-2021 Thin prep Papanicolaou smear with manual screening 17 U/L 15-37 [facility] Work Phone: Thin prep Papanicolaou smear with manual screening 3 5-15 [facility] Work Phone: Thyroglobulin measurement by radioimmunoassay (JASSI)on 10-01-2021 Thyroglobulin Ab JASSI Qn (S) 6.2 ng/mL . [facility] Work Phone: Comment on above: This test was develo ped and its performance characteristicsdetermined by [employer]. It has not been cleared or approvedby [...] Date Time Vital Sign Value Performing Clinician Faci lity 01-18-2025 13:52-0400 Body height 172.[address] Dmitriy Hardy MD Work Phone: [facility] 01-18-2025 13:52-0400 Body mass index (BMI) [Ratio] 23.4 kg/m2 Dr. Dmitriy Hardy MD Work Phone: [facility] 01-18-2025 13:52-0400 Body weight 69.[address] Dmitriy Hardy MD Work Phone: [facility] 01-18-2025 13:52-0400 Diastolic blood pressure 69 mm[Hg] Dr. Dmitriy Hardy MD Work Phone: [facility] 01-18-2025 13:52-0400 Heart rate 47 /min Dr. Dmitriy Hardy MD Work Phone: [facility] 01-18-2025 13:52-0400 Respiratory rate 16 /min Dr. Dmitriy Hardy MD Work Phone: [facility] 01-18-2025 13:52-0400 Systolic blood pressure 128 mm[Hg] Dr. Dmitriy Hardy MD Work Phone: [facility] 07-03-2024 09:58-0500 Body height 172.[address] Dmitriy Hardy MD Work Phone: [phone] [place] [address] 07-03-2024 09:58-0500 Body mass index (BMI) [Ratio] 23.8 kg/m2 Dr. Dmitriy Hardy MD Work Phone: [facility] 07-03-2024 09:58-0500 Body temperature 98.1 [degF] Dr. Dmitriy Hardy MD Work Phone: [facility] 07-03-2024 09:58-0500 Body weight 70.[address] Dmitriy Hardy MD Work Phone: [facility] 07-03-2024 09:58-0500 Diastolic blood pressure 58 mm[Hg] Dr. Dmitriy Hardy MD Work Phone: [facility] 07-03-2024 09:58-0500 Heart rate 50 /min Dr. Dmitriy Hardy MD Work Phone: [facility] 07-03-2024 09:58-0500 Respiratory rate 16 /min Dr. Dmitriy Hardy MD Work Phone: [facility] 07-03-2024 09:58-0500 SaO2% (BldA) [Mass fraction] 96 % Dr. Dmitriy Hardy MD Work Phone: [facility] 07-03-2024 09:58-0500 Systolic blood pressure 120 mm[Hg] Dr. Dmitriy Hardy MD Work Phone: [facility] Encounters Encounter Date Encounter Type Care Provider Facility Start: 04-11-2025 End: 04-11-2025 ambulatory Dmitriy Hardy Facility:[facility] Start: 02-15-2025 End: 02-15-[address] Dmitriy Hardy MD Work Phone: -Cardiovascular Services Start: 02-15-2025 End: 02-15-2025 Patient encounter procedure Raysa Bob PA -Cardiovascular Services Work Phone: Start: 02-15-2025 End: 02-15-2025 ambulatory Raysa Bob PA Facility:[facility] Start: 01-23-2025 Non-patient / Non-visit Dr. Radha CASTORENA -[facility] Start: 01-23-2025 End: 01-23-[address] Dmitriy Hardy MD Work Phone: -Cardiovascular Services Start: 01-23-2025 End: 01-23-[address] Dmitriy Hardy MD -Cardiovascular Services Work Phone: Start: 01-23-2025 End: 01-23-2025 ambulatory Dmitriy Hardy Facility:[facility] Start: 01-18-2025 End: 01-18-[address] Dmitriy Hardy MD Work Phone: -Laboratory Start: 01-18-2025 End: 01-18-[address] Jose E Gary MD -Laboratory Work Phone: Start: 01-18-2025 End: 01-18-[address] Jose E Gary MD -[facility] Work Phone: Start: 01-18-2025 End: 01-18-[address] Jose E Gary MD [facility] Start: 01-18-2025 End: 01-18-[address] Dmitriy Hardy MD Work Phone: -[facility] Start: 01-18-2025 End: 01-18-2025 ambulatory Dmitriy Hardy Facility:[facility] Start: 01-17-[address] Sunny Hardy MD Work Phone: [facility] Start: 01-13-2025 End: 01-13-[address] Dmitriy Hardy MD Work Phone: -[facility] Start: 01-13-2025 End: 01-13-[address] Zina Petit MD -[facility] Work Phone: Start: 01-13-2025 End: 01-13-2025 ambulatory Zina Petit Facility:[facility] Start: 12-29-2024 End: 12-29-2024 ambulatory ZINA PETIT MD Facility:[facility] Start: 12-29-2024 End: 12-29-2024 Patient encounter procedure ZINA PETIT MD [facility] Start: 10-11-2024 End: 10-11-[address] Dmitriy Hardy MD Work Phone: [facility] Work Phone: Start: 10-11-2024 End: 10-11-[address] Dmitriy Hardy MD -[facility] Start: 10-11-2024 End: 10-11-2024 ambulatory Dmitriy Hardy Facility:[facility] Start: 07-03-2024 End: 07-03-2024 Patient encounter procedure Dmitriy Armstrong PERSONAL FINANCIAL ADVISOR-C -[facility] Work Phone: Start: 07-03-2024 End: 07-03-2024 ambulatory Dmitriy Armstrong NP Facility:[facility] Start: 06-24-2023 End: 06-24-2023 ambulatory [facility] Work Phone: Start: 06-24-2023 End: 06-24-2023 Patient encounter procedure [facility] Start: 04-03-2023 End: 04-03-2023 Patient encounter procedure [facility] Work Phone: Start: 01-20-2023 End: 01-20-2023 ambulatory [facility] Work Phone: Start: 01-20-2023 End: 01-20-2023 Patient encounter procedure [facility] Start: 06-24-2022 End: 06-24-2022 ambulatory [facility] Work Phone: Start: 06-24-2022 End: 06-24-2022 Patient encounter procedure [facility] Start: 04-03-2022 End: 04-03-[address] Dmitriy Hardy Work Phone: [facility] Work Phone: Start: 04-03-2022 End: 04-03-[address] [facility] Start: 02-27-2022 End: 02-27-[address] [facility] Start: 01-24-2022 Non-patient / Non-visit Dr. Manisha Hardy Work Phone: [facility] Start: 01-24-2022 End: 01-24-[address] Dmitriy Hardy Work Phone: [facility]-Cardiovascula r Services Start: 12-25-2021 End: 12-25-2021 Patient encounter procedure [facility] Start: 10-08-2021 End: 10-08-2021 Patient encounter procedure [facility] Start: 10-01-2021 End: 10-01-2021 Patient encounter procedure [facility]-Laboratory, [facility] Procedures Date Procedure Procedure Detail Performing Clinician Start: 10-08-2021 Plain x-ray of wrist Immunizations Immunization Date Immunization Notes Care Provider Halle mitchell 10-01-2020 [facility] ([facility]) [facility] 09-03-2020 Covid ([facility]) [facility] Payers Date Payer Category Payer Self-pay [id number] 2024 Unknown [id number] 2022 Medicare [id number] 2022 Private Health Insurance ab [id number] 2003 Medicare [id number] 1938 Unknown [id number]. [id number] Self-pay [id number] Unknown [id number] Unknown [id number] 2.16.8 [id number] Unknown [id number] 2.16.8 [id number] Unknown [id number] 2.16.8 [id number] Unknown [id number] 2.16.8 [id number] Unknown [id number] 2.16.8 [id number] Unknown [id number] 2.16.8 [id number] Unknown [id number] 2.16.8 [id number] Unknown [id number] 2.16.8 [id number] Unknown [id number] 2.16.8 [id number] Social History Date Type Detail [facility] Work Phone: Start: 1940 Sex Assigned At Male A [facility] Tobacco smoking status [facility] smoked [facility] Work Phone: Start: 02-27-2022 End: 10-17-2024 Sex Male (finding) [facility] Start: 01-17-2025 [facility] Evaluation note 01-18-2025 Note Date & Type Note Facility 01-18-2025 Evaluation note Diagnosis Onset Date Resolution Bradycardia acute January 18 1:49pm Encounter for pre-operative examination acute January 18, 2025 1:49pm [facility] Work Phone: Evaluation note 07-03-2024 Note Date & Type Note Facility 07-03-2024 Evaluation note Diagnosis Onset Date Resolution URI (upper respiratory infection) acute July 03 024 9:50am [facility] Work Phone: Evaluation + Plan note Note Date & Type Note Facility Evaluation + Plan note No data available for this section [facility] Evaluation note Note Date & Type Note Facility Evaluation note No assessment information availa [facility] Work Phone: Hospital Discharge instructions Note Date & Type Note Facility Hospital Discharge instructions No data available for this section [facility] Progress note Note Date & Type Note Facility Progress note No data available for this section [facility] Reason for referral (narrative) Note Date & Type Note Facility Reason for referral (narrative) No reason for referral information available [facility] Work Phone: Chief Complaint and Reason for Visit Chief Complaint BILATERAL WRIST PAIN Chief Complaint BILATERAL WRIST PAIN SOB Chief Complaint SOB Chief Complaint EORDER Chief Complaint Admit Date HEAD CONGESTION July 03, 2024 9:50am Reason for Visit Admit Date URI (upper respiratory infection) Decemb er 2023 9:50am Chief Complaint Admit Date PRE-OP/ WASC January 13, 2025 7:32 am BRADYCARDIA/SURG CLEARANCE ([facility]) [facility] 2024 1:49pm Chief Complaint Admit Date PRE-OP/ WASC January 13, 2025 7:32 am BRADYCARDIA/SURG CLEARANCE ([facility]) [facility] 2024 1:49pm INT LAB ORDERS January 18, 2025 2:51 pm Reason for Visit Admit Date Bradycardia January 18, 2025 1:49 pm Encounter for pre-operative examination January 18, 2025 1:49pm Chief Complaint Admit Date PRE-OP/ WASC January 13, 2025 7:32 am BRADYCARDIA/SURG CLEARANCE ([facility]) [facility] 2024 1:49pm INT LAB ORDERS January 18, 2025 2:51 pm BRADYCARDIA January 23, 2025 10:4 6am Chief Complaint Admit Date PRE-OP/ WASC January 13, 2025 7:32 am BRADYCARDIA/SURG CLEARANCE ([facility]) [facility] 2024 1:49pm INT LAB ORDERS January 18, 2025 2:51 pm BRADYCARDIA January 23, 2025 10:4 6am RLE SWELLING February 15, 2025 10 :52am Summary Purpose Family History No Family History [...] Member Role: Primary Care Physician Address: Address: [address] [place] [address]- (unrecognized sect ion and content) No Status Records FoundNo Status Records FoundNo Status Records Found INFORMATION SOURCE (unrecogn ized section and content) DATE CREATED AUTHOR 03/02/2022 [facility] ([place]) DATE CREATED AUTHOR AUTHOR'S ORGANIZ ATION 01/01/[address] [facility] DATE CREATED AUTHOR AUTHOR'S ORGANIZ ATION 05/05/2025 [facility] Care Teams (unrecognized sec [...] January 23, 2025 End: January 23, 2025 Team Status: Inactive Member Role/Relationship Status Dates Dr. Dmitriy Hardy MD Primary Care Provider Active Start: January 13, 2025 End: January 13, 2025 Dr. Zina Petit MD Attending Provider Active Start: January 13, 2025 End: January 13, 2025 Dr. Zina Petit MD Referring Provider Active Start: January 13, 2025 End: January 13, 2025 Team Status: Inactive Member [...] January 23, 2025 End: January 23, 2025 Team Status: Active Member Role/Relationship Status Dates Dr. Dmitriy Hardy MD Primary Care Provider Active Start: January 23, 2025 Dr. Jose E Gary MD Attending Provider Active S tart: January 23, 2025 Team Status: Inactive Member Role/Relationship Status Dates Dr. Dmitriy Hardy MD Primary Care Provider Active Start: February 15, 2025 End: February 15, 2025 KAY Jc Attending Provider Active Start: February 15, 2025 End: February 15, 2025 KAY Jc Referring Provider Active Start: February 15, 2025 End: February 15, 2025 FOR RECORDS PERTAINING TO PATIENTS WHO [...] BE BASED ON THE PRIMARY CLINICAL RECORDS. [employer] provides no warranty or guarantee of the accuracy or completeness of information in this document.
== END | disposition home or self-care (01) ==
LOC: PSN 07:45
PROVIDERS: PCP Family Medicine; Referring Provider Student in an Organized Health Care Education/Training Program; Visit Provider Student in an Organized Health Care Education/Training Program
DX: R00.1 Bradycardia, unspecified (principal)
CPT/HCPCS: 93225; 93226